=== PATIENT | female | born 1990 | race Caucasian/White ===

== ENCOUNTER → 2020-04-01 15:02 | Outpatient (BNVA) | payer MEDICAID, SELFPAY | PROVIDERS: Visit Provider Advanced Practice Midwife | DX: Z76.89 Persons encountering health services in other specified circumstances (principal) ==

== ENCOUNTER 2020-05-12 09:47 | Outpatient (REF) | payer MEDICAID, SELFPAY ==
[2020-05-13 10:15] LABS: BV Int Neg Control Negative (Negative); BV Int Pos Control Positive (Positive)
[2020-05-15 08:47] LABS: C. trachomatis RNA TMA NOT DETECTED (NOT DETECTED); N. gonorrhoeae RNA TMA NOT DETECTED (NOT DETECTED)
[2020-05-15 10:18] LABS: HPV mRNA E6/E7 rflx Not Detected (Not Detected)
== END 2020-05-12 09:48 | disposition home or self-care (01) ==
LOC: HO.LAB 09:47
PROVIDERS: PCP Emergency Medicine; Visit Provider Advanced Practice Midwife
DX: Z12.4 Encounter for screening for malignant neoplasm of cervix (principal); N88.9 Noninflammatory disorder of cervix uteri, unspecified; N93.9 Abnormal uterine and vaginal bleeding, unspecified; R10.2 Pelvic and perineal pain
CPT/HCPCS: 87480; 87491; 87510; 87591; 87624; 87660; 88142

== ENCOUNTER 2020-05-12 11:08 | Outpatient (REF) | payer MEDICAID, SELFPAY ==
--- NOTE | 2020-05-12 11:12 | US_ITS ---
EXAMINATION: ULTRASOUND PELVIC, TRANSVAGINAL COMPLETE CLINICAL INFORMATION: Pelvic and perineal pain. COMPARISON: None TECHNIQUE: Multiple 2-D grayscale and color Doppler transabdominal and transvaginal ultrasound images of the pelvis were obtained. FINDINGS: Uterus: Anteverted/anteflexed measuring 7.2 x 3.7 x 4.3 cm. The endometrial stripe measures up to 0.4 cm at the level the fundus without focal abnormality. Color Doppler showed no abnormal vascular flow. The cervix is closed without abnormality. Cervical length is approximately 2 cm. Minimal free fluid is seen in the cul-de-sac. Right ovary: 3.4 x 1.3 x 2.3 cm with a volume of 5.3 cm. Tiny anechoic follicles are seen. Color Doppler showed no abnormal vascular flow. Left ovary: 3.3 x 2.3 x 3.2 cm with a volume of 12.7 cm. Several anechoic follicles are seen measuring up to 1.3 cm. Color Doppler showed no abnormal vascular flow. Urinary bladder: Mildly distended without focal abnormality. US/US pelvic complete IMPRESSION: Unremarkable pelvic ultrasound.
== END 2020-05-12 11:09 | disposition home or self-care (01) ==
LOC: HO.US 11:08
PROVIDERS: Visit Provider Advanced Practice Midwife
DX: R10.2 Pelvic and perineal pain (principal)
CPT/HCPCS: 76830; 76856

== ENCOUNTER → 2020-05-19 10:30 | Outpatient (BNVA) | payer MEDICAID, SELFPAY | PROVIDERS: Visit Provider Advanced Practice Midwife | DX: Z76.89 Persons encountering health services in other specified circumstances (principal) ==

== ENCOUNTER → 2020-05-31 14:45 | Outpatient (BNVA) | payer MEDICAID, SELFPAY | PROVIDERS: PCP Family Medicine; Visit Provider Obstetrics & Gynecology | DX: N80.9 Endometriosis, unspecified (principal) | CPT/HCPCS: 99212 ==

== ENCOUNTER 2021-02-15 10:47 | Outpatient (REF) | payer MEDICAID, SELFPAY ==
[2021-02-16 14:40] LABS: CT PCR NOT DETECTED (Not Detect.); NG PCR NOT DETECTED (Not Detect.)
[2021-02-17 10:35] LABS: BV Int Neg Control Negative (Negative); BV Int Pos Control Positive (Positive)
== END 2021-02-15 10:48 | disposition home or self-care (01) ==
LOC: HO.LAB 10:47
PROVIDERS: PCP Family Medicine; Visit Provider Advanced Practice Midwife
DX: R10.2 Pelvic and perineal pain (principal); N93.9 Abnormal uterine and vaginal bleeding, unspecified; N88.9 Noninflammatory disorder of cervix uteri, unspecified; N94.6 Dysmenorrhea, unspecified; K59.09 Other constipation; Z11.8 Encounter for screening for other infectious and parasitic diseases; Z11.3 Encounter for screening for infections with a predominantly sexual mode of transmission; Z88.1 Allergy status to other antibiotic agents; Z88.0 Allergy status to penicillin; Z79.899 Other long term (current) drug therapy
CPT/HCPCS: 81025; 87480; 87491; 87510; 87591; 87660; 99212

== ENCOUNTER → 2021-06-03 10:56 | Outpatient (BNVA) | payer MEDICAID, SELFPAY | PROVIDERS: PCP Family Medicine; Visit Provider Advanced Practice Midwife | DX: N92.6 Irregular menstruation, unspecified (principal) | CPT/HCPCS: 99212 ==

== ENCOUNTER 2021-06-10 12:11 | Outpatient (REF) | payer MEDICAID, SELFPAY ==
--- NOTE | ~2021-06-10 | US_ITS ---
EXAMINATION: OBSTETRICAL ULTRASOUND, FIRST TRIMESTER HISTORY: 30-year-old at the uncertain dates Viability LMP: 03/30/2021 COMPARISON: None TECHNIQUE: Real time transabdominal imaging with color and M-mode Doppler. FINDINGS: A single, live IUP CRL of 33.1 mm c/w 10.2wks is noted. Heart Rate: 163 beats per minute. Small subcutaneous chorionic hematoma: 2.3 x 0.4 x 1.6 cm. Both maternal ovaries are seen and appear normal. GESTATIONAL AGE: 1. GA from LMP: 10.2 wks 2. GA from AUA: 10.2 wks ESTIMATED DATE OF DELIVERY: 1. AVE from LMP: 01/04/[address] AUA: 01/04/2022 US/US OB <= 14 weeks fetus IMPRESSION: 1. A single live IUP 2. CRL corresponds to 10.2 weeks, AVE 01/04/2022 No additional ultrasound has been scheduled.
== END 2021-06-10 12:12 | disposition home or self-care (01) ==
LOC: HO.US 12:11
PROVIDERS: Visit Provider Advanced Practice Midwife
DX: O26.891 Other specified pregnancy related conditions, first trimester (principal); N92.6 Irregular menstruation, unspecified; Z3A.10 10 weeks gestation of pregnancy
CPT/HCPCS: 76801

== ENCOUNTER 2024-08-01 11:47 | Outpatient (REF) | payer MEDICAID, SELFPAY ==
[2024-08-01 13:39] LABS: Hematocrit 36.3 % (37.0-47.0); Hemoglobin 12.1 g/dl (12.0-16.0); Mean Corpuscular HGB Conc 33.3 g/dl (31.0-35.0); Mean Corpuscular Volume 89.9 fL (80.0-98.0); Mean Platelet Volume 11.2 fL (9.4-12.3); Platelet Count 222 X10*3/uL (160-400); Red Blood Count 4.04 X10*6/uL (4.20-5.50); Red Cell Distribution Width 12.9 % (11.0-16.0); White Blood Count 4.8 X10*3/uL (4.8-10.8)
[2024-08-01 13:48] LABS: Estimated Average Glucose 97 mg/dL; Total Hemoglobin (HGBA1C) 3201.9695 umol/L
[2024-08-01 13:55] LABS: Alanine Aminotransferase 30 U/L (0-31); Albumin Level 4.2 g/dL (3.5-5.0); Alkaline Phosphatase 76 U/L (39-117); Anion Gap 10 (12-20); Aspartate Amino Transferase 23 U/L (5-31); Bilirubin Direct 0.2 mg/dL (0.0-0.5); Bilirubin Total 0.5 mg/dL (0.0-1.0); Blood Urea Nitrogen 13 mg/dL (9-16); Calcium 9.3 mg/dL (8.4-10.2); Carbon Dioxide 29 mmol/L (22-29); Chloride 104 mmol/L (96-108); Cholesterol 99 mg/dL (<200); Estimated Glomerular Filt Rate > 60; Glucose Random 80 mg/dL (60-115); HDL Cholesterol 50 mg/dL (>40); LDL Cholesterol Calculated 41 mg/dL (<100); Sodium 139 mmol/L (135-145); Total Protein 7.1 g/dL (6.5-8.0); Triglycerides 43 mg/dL (<150)
[2024-08-01 14:11] LABS: HBS Num1 799.61 mIU/mL (0-7.99); HBc Num1 0.09 S/CO (0.00-0.79); HBsAGNum1 0.33 S/CO (0.00-0.99); HIV AB/AG Nonreactive (Nonreactive); HIV Num 1 0.07 S/CO (0.00-0.99); Hepatitis B Core Antibody Nonreactive (Nonreactive); Hepatitis B Surface Antigen Negative (Negative); ~HepC Num1 0.11 S/CO (0.00-0.79); ~Hepatitis B Surface Antibody REACTIVE (Nonreactive); ~Hepatitis C Antibody Nonreactive (Nonreactive)
[2024-08-01 14:19] LABS: Free T4 (Free Thyroxine) 1.05 ng/dL (0.71-1.85); Thyroid Stimulating Hormone 2.04 uIU/mL (0.32-4.0)
[2024-08-01 15:15] LABS: CT PCR NOT DETECTED (Not Detect.); NG PCR NOT DETECTED (Not Detect.)
[2024-08-04 16:58] LABS: RPR Rapid Plasma Reagin NON-REACTIVE (NON-REACTIVE)
[2024-08-06 04:11] LABS: Hepatitis A Antibody IgG Nonreactive (Nonreactive); ~Hepatitis A Antibody IgG 0.28 S/CO (0.00-0.99)
== END 2024-08-01 11:48 | disposition home or self-care (01) ==
LOC: HO.HHCL 11:47
PROVIDERS: Visit Provider Family Medicine
DX: Z00.00 Encounter for general adult medical examination without abnormal findings (principal); F33.9 Major depressive disorder, recurrent, unspecified; N93.9 Abnormal uterine and vaginal bleeding, unspecified; Z68.20 Body mass index [BMI] 20.0-20.9, adult
CPT/HCPCS: 80048; 80061; 80076; 82306; 83036; 84134; 84439; 84443; 85027; 86592; 86704; 86706; 86708; 86803; 87340; 87389; 87491; 87591

== ENCOUNTER 2024-11-13 12:40 | Outpatient (REF) | payer MEDICAID, SELFPAY ==
--- NOTE | ~2024-11-13 | US_ITS ---
CLINICAL HISTORY: prolonged heavy menses US pelvis transabdominal and transvaginal with color Doppler Comparison: None Findings: Transabdominal scanning performed for overall anatomy. Transvaginal scanning performed for additional detail. LMP: 1 month ago Retroflexed/retroverted uterus, normal size and echotexture, measuring 7.4 x 4.8 x 6.2 cm. Well defined endometrium, measuring 6.3 mm in thickness. The right ovary measures, 4.8 x 2.7 x 3.0 cm. Anechoic cyst measuring 3.1 x 1.9 x 2.6 cm. The left ovary measures, 4.5 x 2.0 x 1.9 cm. Normal sonographic appearance left ovary. No adnexal masses or fluid collections. Mild prominence of the vessels in the left adnexa. Moderate free fluid Impression: 1. Retroflexed/retroverted uterus with normal thickness endometrium. 2. Suspect functional cyst right ovary. Normal sonographic appearance left ovary. No adnexal masses or fluid collections. 3. Moderate free fluid in the cul-de-sac 4. Equivocal pelvic venous congestion syndrome clinical correlation This document has been electronically signed by: Alan Chi MD on 11/14/2024 13:00:59
--- OUTSIDE RECORDS SUMMARY | 2024-11-13 12:51 | XMS_ITS | Clinical Summary ---
Author Organization [employer] Address [address] [place] [address] [address] [place] [address] Care Team Providers Care Retreader Name Role Phone Nakul Kathrine Primary Care Provider Fadumo Belle Unavailable Allergies Active Allergy Reactions Criticality Noted Date Comments Azithromycin High 08/21/2016 Other reaction(s): hives, swelling Etonogestrel Rash Low 03/27/2019 Other reaction(s): Rash Penicillin G Hives 05/19/2022 Penicillins Unknown 03/22/2016 Other reaction(s): full body rash/hives Medications * This document contains information received from the source organization and may not represent a complete record from that organization. EPINEPHrine (EpiPen 2-Bora) 0.3 MG/0.3ML injection syringe Inject 0.3 mL into the shoulder, thigh, or buttocks. 02/01/2021 Active FLUoxetine (PROzac) 40 MG capsule Take 40 mg by mouth Once per day. Active hydrOXYzine pamoate (Vistaril) 25 MG capsule TAKE ONE CAPSULE BY MOUTH THREE TIMES A DAY, NEEDED FOR ANXIETY/SLEE P 03/03/2024 Active cetirizine (ZyrTEC) 10 MG tabletIndication s:Seasonal allergic rhinitis, unspecified trigger Take 1 tablet by mouth every day 90 tablet 1 08/01/2024 Active Nutritional Supplements (Boost High Protein) liquid Take 1 Bottle by mouth 2 times daily. 60691 mL 11 10/16/2024 10/17/19 26 Active Active Problems Problem Noted Date Diagnosed Date Allergy to penicillin 06/06/2023 06/06/2023 History of hemorrhage 06/06/2023 06/06/2023 History of delivery 05/19/2022 Severe anxiety 05/19/2022 Chronic female pelvic pain 05/19/2022 BMI 20.0-20.9, adult 05/19/2022 Abnormal uterine bleeding 05/18/2022 Allergic rhinitis 05/18/2022 Eczema 09/15/2015 Moderate episode of recurrent major depressive d isorder 09/15/2015 Resolved Problems Problem Noted Date Diagnosed Date Resolved Date Razo cerclage present 06/06/2023 06/06/2023 Request for sterilization 06/06/2023 06/06/2023 Rh negative, maternal 06/06/2023 06/06/20232024 Anxiety and depression 05/19/202208/01 Overview (06/06/2023): [facility] Encounters * This document contains information received from the source organization and may not represent a complete record from that organization. Date Type Department Care Team Description 11/12/2024 Patient Outreach [address] [address] Kathrine Mota DO Care Coordination ([facility]/ANDREW Waters#1- Missed appt with [facility] for housing search-LVM) 11/10/2024 Patient Outreach [address] [address] Kathrine Mota DO Care Coordination ([facility]/ANDRE[facility] Waters- Follow up call) 11/10/[address] [address] Kathrine Mota DO Care Management ([facility] Graduation) 11/06/2024 Patient Outreach [address] [address] Kathrine Mota DO Care Coordination ([facility]/CEE Belle, In person meet) 11/06/2024 Patient Outreach [address] [address] Kathrine Mota DO 10/27/2024 Patient Outreach [address] [place] [address] Kathrine Mota, DO 10/27/2024 Patient Outreach [facility] [address] [facility] [place] [address] Kathrine Mota, DO 10/27/2024 Patient Outreach [facility] [address] [facility] [place] [address] Kathrine Mota, DO 10/16/2024 Telephone [facility] [address] [place] [address], [place] [address] Kathrine Mota, DO 10/16/2024 Telephone [facility] [address] [facility] [place] [address] Kathrine Mota, DO 10/14/[address] [place] [address] Kathrine Mota DO Care Management ([facility] follow up call) 09/22/2024 Orders Only [address] [place] [address] Kathrine Mota DO Weight loss, unintentional (Primary Dx) 09/16/[address] [address] Kathrine Mota DO [facility] 09/09/2024 Orders Only [address] [place] [address] Marni Stout, CNM 09/08/[address] [place] [address] Marni Stout, INDUM 08/25/[address] [address] Kathrine Mota DO Care Management ([facility] follow up call) 08/18/2024 Patient Outreach [address] [place] [address] Kathrine Mota DO Transition Of Care ([facility]) 08/14/2024 Patient Outreach [address] [place] [address] Kathrine Mota DO Care Coordination ([facility] Rossi Herzog telephone call outreach) from Last 3 Months Immunizations Immunization Administration Dates Next Due DTP 11/11/1993, 1,07/24/1990,1988,1988 DTaP / HiB / IPV 03/20/2013 HPV, Quadrivalent 05/31/2006 Hep B, Adolescent or Pediatric 08/12/2002,1998,01/13/1998 Hib (HbOC) 07/24/1990 Influenza, IIV3, injectable 02/12/2023,0 05/20/2021,02/19/2017,2015,03/06/2013,03/07/2011,02/11/2009 Influenza, Split (incl. chin fied surface antigen) 02/01/2012 Influenza, seasonal, injecta ble, preservative free 02/12/2023,05/20/2021,03/06/2013,2010 MMR 08/05/2002,01/02/1991 OPV, Trivalent 11/11/1993, 1,07/24/1990,1988,1988 TD (adult), 2 Lf tetanus tox oid, preservative free, adsorbed 03/07/2006,08/05/2002 Tdap 06/19/2023, 2,02/01/2021,2016,05/02/2013,07/17/2011,07/19/2009 Family History Medical History Relation Name Comments Depression Mother Relation Name Status Comments Mother Social History Tobacco Use Types Packs/Day Years Used Date Smoking Tobacco: Never Smokeless Tobacco: Never Tobacco Cessation:Counseling Given: Not Answered Alcohol Use Standard Drinks/Week Comments Never 0 (1 standard drink = 0.6 oz pur e alcohol) Depression Answer Date Recorded Patient Health Questionnaire-9 Score 13 08/14/2024 Patient Health Questionnaire-9 Score 13 08/14/2024 Last PHQ-9: Questionnaire Data Not on file 0 08/14/2024 Housing Stability Answer Date Recorded What is your housing situation today? I do not have housing (Staying with others, in a hotel, in a skilled nursing, living outside on the street, on a beach, in a car, or in a park 11/06/[address] you li ve. Do you have problems with any of the following? None of the above 11/06/2024 Food Insecurity Answer Date Recorded Within the past 12 months, y ou worried that your food would run out before you got money to buy more: Never True 08/01/2024 Within the past 12 months,th e food you bought just didn't last and you didn't have enough money to get more: Never True Transportation Answer Date Recorded In the past 12 months, has l ack of transportation kept you from medical appts, meetings, work or from getting things needed for daily living? No 06/21/2023 Utilities Answer Date Recorded In the past 12 months, has t he electric, gas, oil or water company threatened to shut off services in your home? No 06/21/2023 Depression Answer Date Recorded Patient Health Questionnaire-2 Score 3 08/14/2024 Internet Access Answer Date Recorded Internet Access Q1 Yes 06/09/2024 Internet Access Q2 Not on file 06/09/2024 Comments No Sex and Gender Information Value Date Recorded Sex Assigned at Female 03/13/2022 10:19 AM EDT Legal Sex Female 10:19 AM EDT Gender Identity Female 03/13/2022 10:19 AM EDT Sexual Orientation Straight 07/27/2023 9: 39 AM EDT Sexual Orientation Lesbian or Lacey 07/27/2023 9: 39 AM EDT Last Filed Vital Signs Vital Sign Reading Time Taken Comments Blood Pressure 110/70 08/01/2024 10:31 AM EDT Pulse 76 08/01/2024 10:31 AM EDT Temperature 36.2 C (97.2 F) 08/01/2024 10:31 AM EDT Respiratory Rate 21 08/01/2024 10:31 AM EDT Oxygen Saturation 98% 08/01/2024 10:31 AM EDT Inhaled Oxygen Concentration - - Weight 55.5 kg (122 lb 6 oz) 08/01/2024 10:31 AM EDT Height 165.1 cm (5' 5 ) 08/01/2024 10:31 AM EDT Body Mass Index 20.36 08/01/2024 10:31 AM EDT Plan of Treatment Health Maintenance Due Date Last Done Comments Disability Screening 1988 Family Planning (PISQ) 10/05/2003 HPV Vaccines (2 - 3-dose series) 06/28/2006 05/31/2006 COVID-19 Vaccine ( season) 2024 02/22/2021, 02/01/2021 Influenza Vaccine (#1) 2025 , 02/12/2023, 05/20/2021, Additional history exists Depression Monitoring 02/13/2025 08/14/2024, 025 Cervical Cancer Screening 04/12/2025 HPV/Cotest 04/12/2025 04/12/2022, 04/15, 03/27/2019 Alcohol/Substance Use Screening 08/01/2025 08/01/2024 Tobacco Screening 08/01/2025 08/01/2024 SDOH Screening 11/06/2025 11/06/2024 Pap Smear 12/20/2026 12/21/2023, 03/16, 05/12/2020 DTaP/Tdap/Td Vaccines (14 - Td or Tdap) 06/19/2033 06/19/2023, 10/21/2021, 02/01/2021, Additional history exists Zoster Vaccines (1 of 2) 2038 RSV Patients and Patients Aged 60 years or older (1 - 1-dose 75+ series) 10/05/2063 Hepatitis B Vaccines Completed 08/12/2002, 04/28/1999, 01/13/1998 HIB Vaccines Completed 03/20/2013, 07/24/1990 IPV Vaccines Completed 03/20/2013, 07/05/1993, 01/02/1991, Additional history exists HIV Screening Completed 08/01/2024, 02/01/2021 Hepatitis C Screening Completed 08/01/2024, 021 Hepatitis A Vaccines Aged Out No long er eligible based on patient's age to complete this topic Meningococcal B Vaccine Aged Out No l onger eligible based on patient's age to complete this topic Meningococcal Vaccine Aged Out No elana ling eligible based on patient's age to complete this topic Pneumococcal Vaccine: Pediatrics (0 to 5 Years) and At-Risk Patients (6 to 49) Years Aged Out No longer eligible based on patient's age to complete this topic RSV under 20 months Aged Out No longe r eligible based on patient's age to complete this topic Rotavirus Vaccines Aged Out No longer eligible based on patient's age to complete this topic Procedures Procedure Name Priority Date/Time Associated Diagnosis Comments HEPATITIS C AB W/REFL TO HCV RNA, QN, PCR Routine 08/01/2024 11:53 AM EDT Routine history and physical examination of adult Major depression, recurrent, chronic (CMS/HCC) Abnormal uterine bleeding BMI 20.0-20.9, adult HIV 1/2 ANTIGEN/ANTIBODY, FOURTH GENERATION W/RFL Routine 08/01/2024 11:53 AM EDT Routine history and physical examination of adult Major depression, recurrent, chronic (CMS/HCC) Abnormal uterine bleeding BMI 20.0-20.9, adult PAP SMEAR Routine 12/21/2023 12:00 AM EDT THINPREP IMAGING PAP AND HPV MRNA E6/E7 WITH REFLEX TO HPV 16,18/45 Routine 04/12/2022 9:20 AM EST from Last 3 Months or Most Recently Relevant to Health Maintenance Results * Hepatitis C Antibody with Reflex to HCV, RNA, Quantitative, Real-Time PCR (08/01/2024 11:53 AM EDT) Hepatitis C Antibody Nonreactive Nonreactive [facility] Comment:Antibodies to HCV no t detected; does not exclude early acuteHCV infection. Blood Venous blood specimen / Unknown 08/01/2024 11:53 AM EDT 08/01/2024 1:22 PM EDT us Kathrine Mota DO LAB BLOOD ORDERABLES Final R esult [facility] [address] [place] [phone] * HIV-1/2 Antigen and Antibodies, Fourth Generation, with Reflexes (08/01/2024 11:53 AM EDT) HIV AB/AG Nonreactive Nonreactive [facility] Comment:HIV-1 p24 Ag and/or HIV-1/HIV-2 Ab not detected.A test result that is nonreactive does not exclude thepossibility of exposure to or infection with HIV-1 and/orHIV-2. Nonreactive results in this assay for individualswith prior exposure to HIV-1 and/or HIV-2 may be due toantigen and antibody levels that are below the limit ofdetection of this assay.The Revinate HIV Ag/Ab Combo assay result andsupplemental assay results should be interpreted inconjunction with the patient's clinical presentation,history and other laboratory results. If the results areinconsistent with clinical evidence, additional testing issuggested to confirm the result. Blood Venous blood specimen / Unknown 08/01/2024 11:53 AM EDT 08/01/2024 1:22 PM EDT Kathrine Mota DO LAB BLOOD ORDERABLES Final R esult [facility] [address] [place] [phone] * Pap Smear (12/21/2023 12:00 AM EDT) Swab Historical Provider MD LAB CYTOLOGY ORDERABLES F inal Result Performing Organization Address City/[facility]/ZIP Co de Phone Number [facility] [address] [place] [phone] * Thinprep TIS PAP And HPV mRNA E6/E7 With Reflex To HPV 16,18/45 (04/12/2022 9:20 AM EST) Clinical Information: None given [facility] LMP: NONE GIVEN [facility] Prev. PAP: NONE GIVEN [facility] Prev. BX: NONE GIVEN [facility] SOURCE: None given [facility] Statement Of Adequacy: [facility] Comment: Satisfactory for evaluation. Endocervical/transformation zone component present. Age and/or menstrual status not provided Interpretation/ Result: Negative for intraepithelial lesion or malignancy. trinket COMMENT: This Pap test has been evaluated with computer assisted technology. [facility] Cytotechnologis t: [facility] Comment: SL, CT(ASCP) CT screening location: [place] [id number] Review Cytotechnologis t: [facility] Comment: WAC, CT(ASCP) CT screening location: [place] [address] (Always Message) [facility] Comment: EXPLANATORY NOTE: The Pap is a screening test for cervical cancer. It is not a diagnostic test and is subject to false negative and false positive results. It is most reliable when a satisfactory sample, regularly obtained, is submitted with relevant clinical findings and history, and when the Pap result is evaluated along with historic and current clinical information. HPV nRNA E6/E7 Not Detected Not Detected trinket Comment: Methodology: Environmental Systems Coordinator-Mediated Amplification This assay detects E6/E7 viral messenger RNA (mRNA) from 14 high-risk HPV types (16,18,31,33,35,39,45,51,52,56,58,59,66,68). Cervical sources are required for HPV testing. If a vaginal source from a patient who has had a total hysterectomy with removal of cervix was submitted, please contact the testing laboratory for alternative testing options. For additional information, please refer to http://education.Precipio.rankdesk/faq/MNY337d4 (This link if provided for information/ educational purposes only.) 04/12/2022 9:20 AM EST 04/13/2022 8:41 AM EST Marni Stout CNM LAB PATHOLOGY ORDERABLES Final Result [facility] [address], [place] [address] [facility] [address], [place] [address] from Last 3 Months or Most Recently Relevant to Health Maintenance Insurance [facility] C3 Care Teams Retreader Relationship Specialty Start Date End Date Kathrine Mota DO [address] [place] [phone] PCP - General Family Medicine 05/14/18 Fadumo Belle 11/06/24
--- OUTSIDE RECORDS SUMMARY | 2024-11-13 12:51 | XMS_ITS | Clinical Summary ---
Author Organization [facility] Address [address] [place] [address] Phone Care Team Providers Care Research Epidemiologist Name Role Phone CastroKathrine go Primary Care Provider +1- [phone] Allergies Active Allergy Reactions Criticality Noted Date Comments Azithromycin High 08/21/2016 Other reaction(s): hives, swelling Etonogestrel Rash Low 03/27/2019 Other reaction(s): Rash Penicillins Hives 06/12/2024 Medications No known medications Encounters Date Type Department Care Team Description 08/16/2024 10:37 PM EDT - 08/17/2024 1:22 AM EDT Emergency [facility] [address] [place] [address] Altered mental status, unspecified altered mental status type (Primary Dx) Discharge Disposition: Home or Self Care from Last 3 Months Surgical History Surgery Date Site/Laterality Comments OTHER SURGICAL HISTORY 11/15 PROCEDURE: [place] DILATION & CURETTAGE DX&/THER NONOBSTETRIC; COMMENT: elective TOP TONSILLECTOMY 07/18 PROCEDURE: HISTORICAL TONSILLECTOMY OVARIAN CYST REMOVAL PROCEDURE: VT OVARIAN CYSTECTOMY UNI/BI Medical History Medical History Date Comments Otalgia, unspecified 07/29/04,09/27/04 DX:Otalgia, unspecified Impacted cerumen 09/28/03 DX:Impacted cer umen Hordeolum externum 07/31/02,12/03/02 DX:Hordeolum externum Swelling, mass, or lump in h ead and neck 03/10/03 DX:Swelling, mass, or lump i n head and neck Contact dermatitis and other eczema, due to unspecified cause 02/11/02,03/25/02 DX:Contact dermatitis and other eczema, due to unspecified cause Varicella without mention of complication 1993 DX:Varicella without mention of complication Laceration 03/02/06 DX:Laceration; C OMMENT: laceration left hand Family History Medical History Relation Name Comments Colon cancer Maternal Grandmother Diabetes Maternal Grandmother Allergies Sister 1 Breast cancer Neg Hx Ovarian cancer Neg Hx Relation Name Status Comments Brother Alive 01/28/1990 kvng solorzano Father Alive 05/21/1968 no in picture Maternal Grandmother Mother Alive 04/28/1970 Sister 1 Sister 2 Alive 06/08/1986 Sell dana Social History Tobacco Use Types Packs/Day Years Used Date Smoking Tobacco: Never Smokeless Tobacco: Never Alcohol Use Standard Drinks/Week Comments No 0 (1 standard drink = 0.6 oz pur e alcohol) Comments Unknown Sex and Gender Information Value Date Recorded Sex Assigned at Female 06/12/2024 6:03 PM EST Legal Sex Female 12:28 PM EST Gender Identity Female 06/12/2024 6:03 PM EST Sexual Orientation Choose not to disclose 2024 6:03 PM EST Obstetrics History Last Filed Vital Signs Vital Sign Reading Time Taken Comments Blood Pressure 101/53 08/16/2024 11:50 PM EDT Pulse 76 08/16/2024 11:50 PM EDT Temperature 36.7 C (98.1 F) 08/16/2024 11:50 PM EDT Respiratory Rate 14 08/16/2024 11:50 PM EDT Oxygen Saturation 98% 08/16/2024 11:50 PM EDT Inhaled Oxygen Concentration - - Weight 55.8 kg (123 lb) 08/16/2024 10:44 PM EDT Height 165.1 cm (5' 5 ) 08/16/2024 10:44 PM EDT Body Mass Index 20.47 08/16/2024 10:44 PM EDT Plan of Treatment Health Maintenance Due Date Last Done Comments HPV Vaccines (2 - 3-dose series) 06/28/2006 05/31/2006 Cervical Cancer Screening: Pap Smear 2009 COVID-19 Vaccine ( season) 2024 02/22/2021, 02/01/2021 Social Influencers of Health Screening 03/07/2024 Influenza Vaccine (Season Ended) 2025 02/12/2023, 05/20/2021, 02/19/2017, Additional history exists Depression Screening 08/14/2025 08/14/2024 Cholesterol Screening (Lipid Panel) 08/01/2029 08/01/2024 DTaP,Tdap,and Td Vaccines (16 - Td or Tdap) 06/19/2033 06/19/2023, 10/21/2021, 02/01/2021, Additional history exists MMR Vaccines Completed 08/05/2002, 01/02/1991 Hepatitis B Vaccines Completed 08/12/2002, 04/28/1999, 01/13/1998 HIB Vaccines Completed 03/20/2013, 07/12, 07/24/1990 IPV Vaccines Completed 03/20/2013, 05/1993, 01/02/1991, Additional history exists HIV Screening Completed 08/01/2024, 02/01/2021 Hepatitis C Screening Completed 08/01/2024 Hepatitis A Vaccines Aged Out No long er eligible based on patient's age to complete this topic Meningococcal ACWY Vaccine Aged Out N o longer eligible based on patient's age to complete this topic Meningococcal B Vaccine Aged Out No l onger eligible based on patient's age to complete this topic Pneumococcal Vaccine: Pediatrics (0 to 5 Years) and At-Risk Patients (6 to 64 Years) Aged Out No longer eligible based on patient's age to complete this topic RSV Immunization Patients Under 20 months Aged Out No longer eligible based on patient's age to complete this topic Varicella Vaccines Aged Out No longer eligible based on patient's age to complete this topic Procedures Procedure Name Priority Date/Time Associated Diagnosis Comments ECG ANNOTATED 08/18/2024 DRUG ABUSE SCREEN 8A PANEL, URINE STAT 08/17/2024 12:54 AM EDT ECG 12-LEAD STAT 08/16/2024 10:35 PM EDT from Last 3 Months Results * ECG-Annotated (08/18/2024) us Provider Onbase MD ECG ORDERABLES Final Result * (ABNORMAL) Drug abuse screen 8a panel, urine (08/17/2024 12:54 AM EDT) Amphetamine Screen, Ur Negative Negative LAB CHEMISTRY METHOD 1:58 AM [facility] Comment:Certain OTC medicati ons containing ephedrine, phenylephrine, pseudoephedrine and phenylpropanolamine can cause false positive results. Barbiturate Screen, Ur Negative Negative LAB CHEMISTRY METHOD 5 1:58 AM [facility] Benzodiazepine Screen, Ur Negative Negative LAB CHEMISTRY METHOD 5 1:58 AM [facility] Cocaine Screen, Ur Negative Negative LAB CHEMISTRY METHOD 5 1:58 AM [facility] Opiate Screen, Ur Negative Negative LAB CHEMISTRY METHOD 1:58 AM [facility] Cannabinoid (THC) Screen, Ur Positive(A ) Negative LAB CHEMISTRY METHOD 1:58 AM [facility] Comment:Specimens from patie nts taking pantoprazole sodium (Protonix) have been shown to produce false positive results. Oxycodone Screen, Ur Negative Negative LAB CHEMISTRY METHOD 5 1:58 AM [facility] Fentanyl, Ur Negative Negative LAB CHEMISTRY METHOD 1:58 AM [facility] Urine Urine specimen obtained by clean catch procedure / Unknown Non-blood Collection / Unknown 08/17/2024 12:54 AM EDT 08/17/2024 1:29 AM EDT Narrative [facility] - 08/17/2024 1:58 AM EDT Assay cutoffs: Amphetamines 1000 ng/mL Barbiturates 200 ng/mL Benzodiazepines 200 ng/mL Cocaine 300 ng/mL Fentanyl 1 ng/mL Opiates 300 ng/mL Oxycodone 100 ng/mL THC 50 ng/mL Semi-quantitative assay for screening purposes only. Unconfirmed screening result should not be used for non-medical purposes. *ALTERNATE METHOD CONFIRMATION DONE UPON REQUEST ONLY* Lucy MONTELONGO LAB URINE ORDERABLES F inal Result [facility] [address] [place] [address], * ECG 12 lead (08/16/2024 10:35 PM EDT) Ventricular Rate ECG 102 BPM GEMUSE Atrial Rate 102 BPM GEMUSE P-R Interval 128 ms GEMUSE QRS Duration 108 ms GEMUSE Q-T Interval 380 ms GEMUSE QTc 495 ms GEMUSE P Wave [place] 58 degrees GEMUSE R [place] 78 degrees GEMUSE T [place] 24 degrees GEMUSE ECG Interpretation Sinus tachycardia Nonspecific ST and T wave abnormality Abnormal ECG No previous ECGs available Confirmed by NOEMÍ JOY ([id number]) on 08/17/2024 10:13:29 AM GEMUSE 08/16/2024 10:3 5 PM EDT 08/17/2024 10:13 AM EDT Miguel Barth MD ECG ORDERABLES Final Result GEMUSE from Last 3 Months Insurance [place] - [place] Care Teams Research Epidemiologist Relationship Specialty Start Date End Date Kahtrine Mota DO [address], [place] PCP - General Internal Medicine 10/29/12
== END 2024-11-13 12:41 | disposition home or self-care (01) ==
LOC: HO.HMGCX 12:40
PROVIDERS: PCP Family Medicine; Visit Provider Family Medicine
DX: N93.9 Abnormal uterine and vaginal bleeding, unspecified (principal)
CPT/HCPCS: 76830; 76856

== ENCOUNTER → 2024-11-13 12:42 | Outpatient (BNV) | payer MEDICAID, SELFPAY | PROVIDERS: PCP Family Medicine; Visit Provider Radiology Diagnostic Radiology | DX: N83.291 Other ovarian cyst, right side (principal) | CPT/HCPCS: 76830; 76856 ==

== ENCOUNTER 2024-12-25 13:46 | Emergency (ER) | payer MEDICAID, SELFPAY ==
--- NOTE | ~2024-12-25 | CT_ITS ---
CLINICAL HISTORY: Lower abdominal left CVA tenderness. CT abdomen and pelvis without contrast Comparison: None provided Findings: The lung bases are clear. Cholecystectomy. No biliary duct dilatation. Liver, pancreas, spleen, and adrenal glands are within normal limits. No hydronephrosis or urolithiasis. No bowel obstruction, pneumoperitoneum, or pneumatosis. Postsurgical changes in the right lower quadrant. Pelvic organs are within normal limits. Small amount of free fluid in the pelvis, favored to be physiologic. No acute fracture. IMPRESSION: 1. No acute intraabdominal or pelvic pathology. This document has been electronically signed by: Delilah Moore MD on 12/25/2024 22:04:26
[2024-12-25 14:40] VITALS: BP 103/50; PULSE 75; RESP 16; TEMP 36.8; O2SAT 99; BMI 20.3
--- NOTE | 2024-12-25 14:41 | ED.ABDPAIN ---
HPI - Abdominal Pain General Chief Complaint: Back Pain/Injury Stated Complaint: Back pain, blood in urine, sent by Dr Time Seen by Provider: 12/25/24 19:40 Source: patient Mode of arrival: ambulatory Limitations: no limitations History of Present Illness ED Provider: DR. Gasca HPI narrative: A 34-year-old female came in for evaluation of bilateral flank pain for over a week, also complaining of lower abdominal pain left more than right, patient's symptoms started a week ago was seen and evaluated at urgent care was diagnosed with UTI patient was placed on antibiotic by the urgent care that the patient just had finished. Patient had loose stool today described as dark green with no blood in her, no nausea, no vomiting, no fever, no chills, no history of kidney stones, passing flatus. Patient with history of appendectomy, cholecystectomy, bilateral fallopian tube removal, ovarian cyst removal. Patient is sexually active with 1 person declined risk for STDs, no vaginal discharge, no vaginal bleed patient was seen by her OBGYN 2 days ago tested negative for STDs. Related Data Home Medications ?Medication ?Instructions ?Recorded ?Confirmed cetirizine 10 mg capsule (Zyrtec) 10 mg PO DAILY 04/01/20 02/15/21 desogestrel 0.15 mg-ethinyl tab PO 12/25/24 estradiol 0.03 mg tablet (Apri) fluoxetine 40 mg capsule 40 mg PO DAILY 12/25/24 hydroxyzine HCl 10 mg tablet 10 mg PO TID PRN insomnia 12/25/24 lamotrigine 25 mg tablet mg PO 12/25/24 mirtazapine 15 mg tablet 15 mg PO BEDTIME 12/25/24 Previous Rx's ?Medication ?Instructions ?Recorded levofloxacin 750 mg tablet 750 mg PO DAILY #7 tabs 12/26/24 Allergies Allergy/AdvReac Type Severity Reaction Status Date / Time azithromycin Allergy Unknown anaphylaxis Verified 12/25/24 14:44 penicillin V Allergy Unknown hives, Verified 12/25/24 14:44 rash, angioedema Penicillins (PCN) Allergy Unknown ANAPHYLAXIS Verified 12/25/24 14:44 Review of Systems Review of Systems All other systems are reviewed and are negative Constitutional: Reports as per HPI and Reports no additional constitutional complaints Eyes: Reports as per HPI and Reports no additional eye complaints Reports system reviewed and no additional complaints, except as documented Cardiovascular: Reports as per HPI and Reports no additional cardiovascular complaints Respiratory: Reports as per HPI and Reports no additional respiratory complaints Gastrointestinal: Reports as per HPI and Reports no additional gastrointestinal complaints Genitourinary: Reports no additional female genitourinary complaints Musculoskeletal: Reports no additional musculoskeletal complaints Skin/Breast: Reports system reviewed and no additional complaints, except as docu Psychiatric: Reports no additional psychiatric complaints Endocrine: Reports no additional endocrine complaints Hematologic/Lymphatic: Reports no additional hematologic/lymphatic complaints Allergic/Immunologic: Reports no additional allergic/immunologic complaints Reports system reviewed and no additional complaints, except as documented and Reports Abnormal speech present [facility] Past Medical History Medical History Chronic constipation Hx of ovarian cyst Surgical History History of removal of ovarian cyst Hx of appendectomy Hx of tonsillectomy Family History Family History Maternal Grandmother Colon cancer Social History Social History Alcohol intake: never Advance Directives: No Advance Directives Information Provided: No Do you have a plan to hurt others: No Plan Gender identity: Female Physical Exam ED Vital Signs: Vital Signs - 24 hr 12/25/24 14:40 12/25/24 19:49 12/25/24 23:34 Temperature 98.2 F 97.7 F 98.3 F Pulse Rate 75 60 65 Respiratory Rate 16 Blood Pressure 103/50 L 107/71 107/63 Pulse Oximetry 99 100 100 Oxygen Delivery Method Room Air Room Air Room Air BMI result Body Mass Index 20.3 Vital signs have been reviewed and appear to be correct. Blood pressure elevated. Heart rate normal. Respiratory rate normal. Temperature normal. Oxygen saturation normal. Appearance: Alert. Oriented X3. No acute distress. Head: Normal external exam. Normocephalic. Atraumatic. No Loaiza signs noted. No raccoon eyes noted Eyes: PERRLA. EOMI. Conjunctiva and sclera normal. Eyelids normal. ENT: TM's Normal. Pharynx normal. Uvula midline. Moist mucous membranes. No trismus noted. No drooling noted. No muffled voice noted. Neck: Normal inspection. Neck supple. FROM. No adenopathy. Thyroid Normal. No meningeal signs. No neck mass noted. CVS: Normal heart rate and rhythm. Heart sound normal. No murmurs noted. Pulses normal throughout. Respiratory: No respiratory distress. Painless inspiration. Breath sounds normal. No wheezes/rales/rhonchi noted. Chest nontender. No accessory muscle usage noted or decreased air movement noted. Abdomen: Soft, left lower quadrant abdominal tenderness, no rebound tenderness, no guarding. Bowel sounds normal in all 4 quadrants. No distention noted. No organomegaly noted. No visible injury noted. Back: L CVA tenderness. Full range of motion noted. Skin: Skin warm and dry. Normal skin color. Normal skin turgor. No rashes/lesions/lacerations noted. Extremities: No lower extremity edema. Extremities exhibit normal range of motion. Extremities nontender. Neuro: Oriented X 3. Cranial nerve exam: II-XII are grossly intact No motor deficit. No sensory deficit. Reflexes normal. Course Course Course Narrative: This is an RME: Additional HPI, ROS, PE not included below will be deferred to primary provider. RME assessment and note performed by: Apolonia Jacobs PA-C This is a 48-jsmj-jkg-female who presents to the ER with complaints of abdominal pain and back pain x 2 days. Reporting dark stools, no vomiting. Hx of cholescystectomy, appendectomy. No fevers. No dysuria. Pt with diffuse tenderness throughout abdomen, also with BL CVA tenderness Plan: Labs, UA Reevaluation(s) Reevaluation #1: 1. UTI start the patient on levofloxacin patient had finished recent antibiotic course. 2. hypokalemia that was repleted in in the ED and repeat electrolyte showed normal level potassium. Patient was instructed to drink plenty fluids CT abdomen and pelvis is showing no acute intra-abdominal pathology. Time: 01:09 Medical Decision Making Differential Diagnosis Differential Diagnoses: The differential diagnosis associated with the presentation includes (UTI, pyelonephritis, kidney stone, colitis, diverticulitis, acute appendicitis, electrolyte derangement, severe anemia.) Admission/Observation Consideration of admission/observation: Escalation of care including admission/observation considered Lab Data MDM Lab Attestation statement: I reviewed the patient's lab results. 12/25/24 16:05 12/26/24 00:28 Labs: Lab Results 12/25/24 12/26/24 Range/Units 16:05 00:28 WBC 5.8 (4.8-10.8) X10*3/uL RBC 3.99 L (4.20-5.50) X10*6/uL Hgb 12.3 (12.0-16.0) g/dl Hct 35.0 L (37.0-47.0) % MCV 87.7 (80.0-98.0) fL MCH 30.8 (27.0-33.0) pg MCHC 35.1 H (31.0-35.0) g/dl RDW 13.0 (11.0-16.0) % Plt Count 165 D (160-400) X10*3/uL MPV 10.6 (9.4-12.3) fL Immature Gran % (Auto) 0.3 (0.0-0.4) % Neut % (Auto) 74.5 H (45-73) % Lymph % (Auto) 17.6 L (20-40) % Whiteside % (Auto) 6.6 (2-11) % Eos % (Auto) 0.7 (0-4) % Baso % (Auto) 0.3 (0-2) % Lymph # (Auto) 1.0 L (1.2-4.9) X10*3/uL Whiteside # (Auto) 0.4 (0.1-1.2) X10*3/uL Eos # (Auto) 0.0 (0.0-0.4) X10*3/uL Baso # (Auto) 0.0 (0.0-0.2) X10*3/uL Abs Immat Gran (auto) 0.02 (0.00-0.03) X10*3/uL Absolute Neuts (auto) 4.3 (2.0-8.3) x10*3/uL Absolute Nucleated RBC 0.000 (0.0-0.012) X10*3/uL Nucleated RBC % (auto) 0.0 (0.0-0.2) /100WBC Sodium 136 138 (135-145) mmol/L Potassium 2.9 L* D 3.5 D (3.3-5.1) mmol/L Chloride 103 103 (96-108) mmol/L Carbon Dioxide 25 26 (22-29) mmol/L Anion Gap 11 L 13 (12-20) BUN 17 H 15 (9-16) mg/dL Creatinine 0.72 0.63 (0.5-1.4) mg/dL Estim Creat Clear Calc 94.3 107.7 Estimated GFR > 60 > 60 Random Glucose 110 102 (60-115) mg/dL Calcium 8.6 D 8.5 (8.4-10.2) mg/dL Total Bilirubin 0.7 0.4 (0.0-1.0) mg/dL Direct Bilirubin 0.3 (0.0-0.5) mg/dL AST 36 H 29 (5-31) U/L ALT 76 H 62 H (0-31) U/L Alkaline Phosphatase 75 67 (39-117) U/L Total Protein 7.2 6.2 L (6.5-8.0) g/dL Albumin 4.5 4.0 (3.5-5.0) g/dL Lipase 15 (8-78) U/L Beta HCG, Quant < 2 mIU/mL Urine Color Dark Yellow Urine Appearance Clear Urine pH 6.5 (5.0-9.0) Ur Specific Aline >= 1.030 H (1.005-1.025) Urine Protein 30 (1+) H (Neg-Trace) mg/dL Urine Glucose (UA) Negative (Negative) mg/dL Urine Ketones 40 (Negative) mg/dL Urine Blood Negative (Negative) Urine Nitrite Negative (Negative) Ur Leukocyte Esterase Small (1+) H (Negative) Urine RBC 0-2 (0-2) /HPF Urine WBC 11-20 H (0-5) /HPF Ur Squamous Epith Cells 6-10 (0-2) /HPF Urine Bacteria 2+ (None Seen) Hyaline Casts 0-2 (0-2) /LPF Independent Interpretation I performed an independent interpretation of an: CT Scan (Abdomen and pelvis: No acute intra-abdominal or pelvic pathology.) Radiology Impression Discussion of test interpretation with radiology: I have reviewed the radiologist's reading. Medications Administered Discontinued Medications Generic Name Dose Route Start Last Admin Trade Name Freq PRN Reason Stop Dose Admin Potassium Chloride 10 meq in 100 mls @ 100 mls/hr 12/25/24 22:06 12/26/24 00:18 Potassium Chloride/H20 IV 12/25/24 23:05 Infused ONCE ONE Infusion Levofloxacin 750 mg 12/25/24 23:06 12/25/24 23:13 Levofloxacin 750 Mg Tablet PO 12/25/24 23:07 750 mg ONCE ONE Administration Potassium Chloride 40 meq 12/25/24 22:06 12/25/24 23:13 Potassium Chloride Packet 20 Meq Packet PO 12/25/24 22:07 40 meq ONCE ONE Administration Discharge Plan Discharge Clinical Impression: Acute hypokalemia, UTI (urinary tract infection) Patient Disposition: Home, Self-Care Instructions: Urinary Tract Infection in Women (ED), Potassium Content of Foods List (ED), Hypokalemia (ED) Prescriptions: New levofloxacin 750 mg tablet 750 mg PO DAILY Qty: 7 0RF No Action mirtazapine 15 mg tablet 15 mg PO BEDTIME fluoxetine 40 mg capsule 40 mg PO DAILY desogestrel-ethinyl estradiol [Apri] 0.15-0.03 mg tablet PO lamotrigine 25 mg tablet PO hydroxyzine HCl 10 mg tablet 10 mg PO TID PRN (Reason: insomnia) Zyrtec 10 mg capsule 10 mg PO DAILY Referrals: Юлия Ravi BLUEPRINTING MACHINE OPERATOR [Primary Care Provider, Internal Medicine] Print Language: German
[2024-12-25 16:12] LABS: MANUAL DIFF FLAG NO
[2024-12-25 16:15] LABS: Hematocrit 35.0 % (37.0-47.0); Hemoglobin 12.3 g/dl (12.0-16.0); Imm Gran Abs Auto 0.02 X10*3/uL (0.00-0.03); Imm Gran Pct Auto 0.3 % (0.0-0.4); Lymphocytes Absolute Auto 1.0 X10*3/uL (1.2-4.9); Mean Corpuscular HGB Conc 35.1 g/dl (31.0-35.0); Mean Corpuscular Hemoglobin 30.8 pg (27.0-33.0); Mean Corpuscular Volume 87.7 fL (80.0-98.0); NRBC Abs Auto 0.000 X10*3/uL (0.0-0.012); NRBC Pct Auto 0.0 /100WBC (0.0-0.2); Platelet Count 165 X10*3/uL (160-400); Red Blood Count 3.99 X10*6/uL (4.20-5.50); White Blood Count 5.8 X10*3/uL (4.8-10.8)
[2024-12-25 16:18] LABS: Appearance Urine Clear; Glucose Urine UA Negative (Negative); PH 6.5 (5.0-9.0); Specific Gravity - Urine >= 1.030 (1.005-1.025); UMIC TRIGGER UACC YES
[2024-12-25 16:29] LABS: UACC Culture Trigger YES
[2024-12-25 16:32] LABS: Alanine Aminotransferase 76 U/L (0-31); Albumin Level 4.5 g/dL (3.5-5.0); Alkaline Phosphatase 75 U/L (39-117); Anion Gap 11 (12-20); Aspartate Amino Transferase 36 U/L (5-31); Blood Urea Nitrogen 17 mg/dL (9-16); Calcium 8.6 mg/dL (8.4-10.2); Carbon Dioxide 25 mmol/L (22-29); Chloride 103 mmol/L (96-108); Creatinine Clr Calc Pharmacy 94.3; Estimated Glomerular Filt Rate > 60; Lipase 15 U/L (8-78); Potassium 2.9 mmol/L (3.3-5.1); Sodium 136 mmol/L (135-145); Total Protein 7.2 g/dL (6.5-8.0)
--- NOTE | 2024-12-25 18:37 | ECG_ITS ---
Test Reason : HYPOKALEMIA Blood Pressure : */* mmHG Vent. Rate : 61 BPM Atrial Rate : 61 BPM P-R Int : 144 ms QRS Dur : 104 ms QT Int : 444 ms P-R-T Axes : 33 83 60 degrees QTcB Int : 446 ms Normal sinus rhythm T wave abnormality, consider anterior ischemia Abnormal ECG When compared with ECG of 19-Dec-2018 00:40, T wave inversion more evident in Anterior leads Referred By: Apolonia Jacobs Electronically Signed By: Varinder Tony
[2024-12-25 19:49] VITALS: BP 107/71; PULSE 60; TEMP 36.5; O2SAT 100
[2024-12-25] MEDS: Potassium Chloride/H20 10 MEQ/100 ML PIGGYBACK 100 MEQ IV (23:13)
[2024-12-25] MEDS: Potassium Chloride Packet 20 MEQ PACKET 40 MEQ PO (23:13)
[2024-12-25 23:34] VITALS: BP 107/63; PULSE 65; TEMP 36.8; O2SAT 100
[2024-12-26 00:56] LABS: Alanine Aminotransferase 62 U/L (0-31); Albumin Level 4.0 g/dL (3.5-5.0); Alkaline Phosphatase 67 U/L (39-117); Anion Gap 13 (12-20); Aspartate Amino Transferase 29 U/L (5-31); Blood Urea Nitrogen 15 mg/dL (9-16); Calcium 8.5 mg/dL (8.4-10.2); Carbon Dioxide 26 mmol/L (22-29); Chloride 103 mmol/L (96-108); Creatinine Clr Calc Pharmacy 107.7; Estimated Glomerular Filt Rate > 60; Potassium 3.5 mmol/L (3.3-5.1); Sodium 138 mmol/L (135-145); Total Protein 6.2 g/dL (6.5-8.0)
[2024-12-26 05:45] VITALS: BP 107/63; PULSE 65; RESP 16; TEMP 36.8; O2SAT 100
== END 2024-12-26 01:45 | disposition home or self-care (01) ==
PROVIDERS: Physician Assistant Medical; Emergency Provider Emergency Medicine; PCP Nurse Practitioner Primary Care
DX: N39.0 Urinary tract infection, site not specified (principal); E87.6 Hypokalemia; R19.7 Diarrhea, unspecified; R10.30 Lower abdominal pain, unspecified
CPT/HCPCS: 36415; 74176; 80048; 80053; 80076; 81001; 83690; 84702; 85025; 87086; 93005; 96365; 99284; J3480

== ENCOUNTER → 2024-12-25 18:37 | Outpatient (BNV) | payer MEDICAID, SELFPAY | PROVIDERS: Emergency Provider Emergency Medicine; PCP Nurse Practitioner Primary Care; Visit Provider Internal Medicine Cardiovascular Disease | DX: R94.31 Abnormal electrocardiogram [ECG] [EKG] (principal); E87.6 Hypokalemia | CPT/HCPCS: 93010 ==

== ENCOUNTER → 2024-12-25 19:55 | Outpatient (BNV) | payer MEDICAID, SELFPAY | PROVIDERS: Emergency Provider Emergency Medicine; PCP Nurse Practitioner Primary Care; Visit Provider Radiology Diagnostic Radiology | DX: R10.814 Left lower quadrant abdominal tenderness (principal) | CPT/HCPCS: 74176 ==

== ENCOUNTER 2024-12-30 13:22 | Outpatient (REF) | payer MEDICAID, SELFPAY ==
--- OUTSIDE RECORDS SUMMARY | 2024-12-30 14:38 | XMS_ITS | Clinical Summary ---
Author Organization [facility] Address [address] [place] [address] Phone Care Team Providers Care Assembly Riveter Name Role Phone WillisKathrine thomason Primary Care Provider +1- [phone] Allergies Active Allergy Reactions Criticality Noted Date Comments Azithromycin High 08/21/2016 Other reaction(s): hives, swelling Etonogestrel Rash Low 03/27/2019 Other reaction(s): Rash Penicillins Hives 06/12/2024 Medications No known medications Surgical History Surgery Date Site/Laterality Comments OTHER SURGICAL HISTORY 11/15 PROCEDURE: [place] DILATION & CURETTAGE DX&/THER NONOBSTETRIC; COMMENT: elective TOP TONSILLECTOMY 07/18 PROCEDURE: HISTORICAL TONSILLECTOMY OVARIAN CYST REMOVAL PROCEDURE: [place] OVARIAN CYSTECTOMY UNI/BI Medical History Medical History [...] 02/01/2021 Social Influencers of Health Screening 03/07/2024 Depression Screening 05/14/2024 Influenza Vaccine (#1) 2025 , 05/20/2021, 02/19/2017, Additional history exists Cholesterol Screening (Lipid Panel) 08/01/2029 08/01/2024 DTaP,Tdap,and [...] 5 Years) and At-Risk Patients (6 to 49 Years) Aged Out No longer eligible based on patient's age to complete this topic RSV Immunization Patients Under 20 months Aged Out No longer eligible based on patient's age to complete this topic Varicella Vaccines Aged Out No longer eligible based on patient's age to complete this topic Insurance MEDICAID - [place] Care Teams Assembly Riveter Relationship Specialty Start Date End Date Kathrine Mota DO [address] [place] [address] PCP - General Internal Medicine 10/29/12
--- OUTSIDE RECORDS SUMMARY | 2024-12-30 14:38 | XMS_ITS | Encounter Summary ---
Author Organization [employer] Address [address] [place] [address] 7 [place] [address] Care Team Providers Care Lap Welder Name Role Phone Kathrine Mota DO Primary Care Provider Fadumo Belle Unavailable Reason for Visit * Reason Onset Date Comments Nurse Triage 12/25/2024 Encounter Details Date Type Department Care Team ([facility] st Contact Info) Description 12/25/2024 Telephone [facility] MED[facility]INE [address] [place] [address] Kathrine Mota DO [address] [place] [address] Nurse Triage Social History Tobacco Use Types Packs/Day Years Used Date Smoking Tobacco: Never Passive Smoke Exposure: Never Smokeless Tobacco: Never Alcohol Use Standard Drinks/Week Comments Never 0 (1 standard drink = 0.6 oz pur e alcohol) Depression Answer Date Recorded Patient Health Questionnaire-9 Score 17 11/26/2024 Patient Health Questionnaire-9 Score 17 11/26/2024 Last PHQ-9: Questionnaire Data Not on file 0 11/26/2024 Housing Stability Answer Date Recorded What is your housing situation today? I do not have housing (Staying with others, in a hotel, in a fpc, living outside on the street, on a [...] Answer Date Recorded Patient Health Questionnaire-2 Score 6 11/26/2024 Internet Access Answer Date Recorded Internet Access [...] or Lacey 07/27/2023 9: 39 AM EDT documented as of this encounter Miscellaneous Notes * Telephone Encounter - Marietta Graffo, JUDITH - 12/25/2024 10:53 AM EDT Triage call to patient who reports abdominal pain and low back pain with onset of dark runny stool this morning 5-6 stools. Unable to tolerate toast is sipping gatorade without vomiting. Had been treated for UTI at a [facility] 2 weeks ago and completed all ABT at that time. Has not had menses in2 months per patient but has no fallopian tubes per report. Patient reports that this pain is differnebt and feels she has infection inside somewhere. Disposition reviewed and patient in agreement with plan. ASK/[facility] [employer] today at 115pm. Reviewed with patient home care recommendations, reasons to call back and symptoms that require immediate evaluation in UC or ER. Patient verbalized understanding and agrees. Protocol Used: Diarrhea (Adult) Protocol-Based Disposition: See in Office or Video Visit Today Video visit offer not recorded Positive Triage Questions: * Moderate diarrhea (e.g., 4-6 times / day more than normal) and present > 48 hours (2 days) * Abdominal pain (Exceptions: Pain clears completely with each passage of diarrhea stool, or symptoms similar to previously diagnosed irritable bowel syndrome.) * All higher-acuity triage questions were negative Care Advice Discussed: * Fluid Therapy During Mild to Moderate Diarrhea * Food and Nutrition During Mild to Moderate Diarrhea * Reasons To Call Back - You become worse * Telephone Encounter - Rick Bolden - 12/25/2024 10:48 AM EDT Symptoms: Abdominal Pain - Female - Not , Back Pain - Not From Injury Outcome: Talk to a nurse or provider within 15 minutes Reason: Severe pain now Please contact pt at [phone]. documented in this encounter Plan of Treatment Not on file documented as of this encounter Visit Diagnoses Not on filedocumented in this encounter Additional Health Concerns Assessment Noted Time PHQ-9 Depression Total Score: 17 025 4:14 PM EDT documented as of this encounter Care Teams Lap Welder Relationship Specialty Start Date End Date Kathrine Mota DO [address] [place] [address] PCP - General Family Medicine 05/14/18 Fadumo Belle 11/06/24 documented as of this encounter
[2024-12-30 16:34] LABS: Hematocrit 34.8 % (37.0-47.0); Hemoglobin 11.7 g/dl (12.0-16.0); Mean Corpuscular HGB Conc 33.6 g/dl (31.0-35.0); Mean Corpuscular Hemoglobin 30.2 pg (27.0-33.0); Mean Corpuscular Volume 89.9 fL (80.0-98.0); NRBC Abs Auto 0.000 X10*3/uL (0.0-0.012); NRBC Pct Auto 0.0 /100WBC (0.0-0.2); Platelet Count 211 X10*3/uL (160-400); Red Blood Count 3.87 X10*6/uL (4.20-5.50); White Blood Count 5.7 X10*3/uL (4.8-10.8)
[2024-12-30 16:55] LABS: Alanine Aminotransferase 56 U/L (0-31); Albumin Level 4.4 g/dL (3.5-5.0); Alkaline Phosphatase 72 U/L (39-117); Anion Gap 12 (12-20); Aspartate Amino Transferase 27 U/L (5-31); Blood Urea Nitrogen 12 mg/dL (9-16); Calcium 9.3 mg/dL (8.4-10.2); Carbon Dioxide 28 mmol/L (22-29); Chloride 104 mmol/L (96-108); Estimated Glomerular Filt Rate > 60; Potassium 3.5 mmol/L (3.3-5.1); Sodium 140 mmol/L (135-145); Total Protein 6.9 g/dL (6.5-8.0)
[2024-12-30 16:59] LABS: Alanine Aminotransferase 57 U/L (0-31); Albumin Level 4.4 g/dL (3.5-5.0); Alkaline Phosphatase 73 U/L (39-117); Anion Gap 11 (12-20); Aspartate Amino Transferase 28 U/L (5-31); Blood Urea Nitrogen 12 mg/dL (9-16); Calcium 9.1 mg/dL (8.4-10.2); Carbon Dioxide 28 mmol/L (22-29); Chloride 104 mmol/L (96-108); Estimated Glomerular Filt Rate > 60; Potassium 3.5 mmol/L (3.3-5.1); Sodium 139 mmol/L (135-145); Total Protein 6.9 g/dL (6.5-8.0)
[2024-12-31 08:40] LABS: HBS Num1 809.76 mIU/mL (0-7.99); HBS Num1 809.96 mIU/mL (0-7.99); HBc Num1 0.10 S/CO (0.00-0.79); HBsAGNum1 0.42 S/CO (0.00-0.99); HBsAGNum1 0.50 S/CO (0.00-0.99); HIV Num 1 0.05 S/CO (0.00-0.99); Hepatitis A Antibody IgM 0.21 Index (0-0.79); Hepatitis B Surface Antigen Negative (Negative); ~HepC Num1 0.10 S/CO (0.00-0.79); ~HepC Num1 0.13 S/CO (0.00-0.79); ~Hepatitis A Antibody IgM Nonreactive (Nonreactive); ~Hepatitis B Surface Antibody REACTIVE (Nonreactive); ~Hepatitis C Antibody Nonreactive (Nonreactive)
== END 2024-12-30 13:23 | disposition home or self-care (01) ==
LOC: HO.HHCL 13:22
PROVIDERS: Nurse Practitioner Primary Care; PCP Family Medicine; Visit Provider Family Medicine
DX: Z11.4 Encounter for screening for human immunodeficiency virus [HIV] (principal); Z11.59 Encounter for screening for other viral diseases; Z11.3 Encounter for screening for infections with a predominantly sexual mode of transmission; E87.6 Hypokalemia; R10.30 Lower abdominal pain, unspecified; R82.2 Biliuria
CPT/HCPCS: 36415; 80048; 80076; 85027; 86592; 86704; 86706; 86709; 86803; 87340; 87389

== ENCOUNTER 2025-01-22 16:36 | Outpatient (REF) | payer MEDICAID, SELFPAY ==
--- OUTSIDE RECORDS SUMMARY | 2025-01-22 11:00 | XMS_ITS | Encounter Summary ---
Author Organization [employer] Address [address] [place] [address] 7 [place] [address] Care Team Providers Care Operating Systems Programmer Name Role Phone Kathrine Mota DO Primary Care Provider + [phone] Fadumo Belle Unavailable Reason for Referral * Imaging (STAT) - Authorized Specialty Diagnoses / Procedures Referred By Contac t Referred To Contact Radiology Diagnoses Lymphadenopathy, inguinal Procedures US SOFT TISSUE Marni Stout CNM [address] [place] [address] Phone: tel: fax: [address] Phone: tel: fax: Referral ID Status Reason Start Date Expiration Date V isits Requested Visits Authorized [id number] Authorized 01/22/2025 01/22/2026 1 1 Reason for Visit * Reason Comments Pelvic Pain Encounter Details Date Type Department Care Team ([facility] st Contact Info) Description 01/22/2025 11:00 AM EDT Office Visit [facility] [address] [place] [address] Marni Stout CNM [address] [place] [address] Lower abdominal pain (Primary Dx); Screening examination for venereal disease; Lymphadenopathy, inguinal Social History Tobacco Use Types Packs/Day Years Used Date Smoking Tobacco: Never Passive Smoke Exposure: Never Smokeless Tobacco: Never Tobacco Cessation:Counseling Given: [...] with others, in a hotel, in a penitentiary, living outside on the street, on a [...] AM EDT documented as of this encounter Last Filed Vital Signs Vital Sign Reading Time Taken Comments Blood Pressure 90/48 01/22/2025 10:29 AM EDT Pulse 82 01/22/2025 10:29 AM EDT Temperature 36.9 C (98.5 F) 01/22/2025 10:29 AM EDT Respiratory Rate 14 01/22/2025 10:2 9 AM EDT Oxygen Saturation 99% 01/22/2025 10: 29 AM EDT Inhaled Oxygen Concentration - - Weight 59.3 kg (130 lb 12.8 oz) 025 10:29 AM EDT Height - - Body Mass Index 21.77 12/30/2024 12:28 PM EDT documented in this encounter Progress Notes * Marni Stout, BRAYAN - 01/22/2025 11:00 AM EDT Subjective Patient ID: Jeniffer Nagy is a 34 y.o. female who presents for Hospice/Home Health Aide visit Notes worsening pelvic pain recently, maybe vaginal odor. Denies urinary symptoms. Pain is midline and LLQ, radiates to back at times. Per triage, passed what sounds like endometrial cast recently. Also notes genital lumps for past few weeks or month. Treated for UTI at urgent care then subsequently seen in ER 12/2024. No worrisome findings on pelvic/abdominal CT 12/2024. Possible pelvic congestionsyndrome, 3cm right ovarian cyst on ultrasound 11/2024. Followed by [facility]. Referred by PCP back to [facility] for hysterectomy consult 11/2024, and referred to interventional radiology for treatment of pelvic congestion syndrome. On oral contraceptive pill for menstrual suppression x 2 months. Denies ACHES. Pap NIL 12/2023. Has tubal ligation. 1 AMAB partner, pain with sex. LMP 9/5, still bleeding lightly. Review of Systems Constitutional: Negative for chills and fever. Gastrointestinal: Positive for constipation. Genitourinary: Positive for dyspareunia, menstrual problem, pelvic pain and vaginal bleeding. Negative for dysuria, frequency, hematuria and vaginal discharge. Musculoskeletal: Positive for back pain. Objective BP (!) 90/48 (BP Location: Left arm, Patient Position: Sitting, BP Cuff Size: Adult) Pulse 82 Temp 98.5 ??F (36.9 ??C) (Oral) Resp 14 Wt 130 lb 12.8 oz (59.3 kg) LMP 01/16/2025 (Approximate) SpO2 99% BMI 21.77 kg/m?? Physical Exam Constitutional: Appearance: Normal appearance. Abdominal: Tenderness: There is abdominal tenderness in the suprapubic area and left lower quadrant. There is no right CVA tenderness, left CVA tenderness, guarding or rebound. Genitourinary: Labia: Right: No rash, tenderness, lesion or injury. Left: No rash, tenderness, lesion or injury. Vagina: No signs of injury and foreign body. No vaginal discharge, erythema, tenderness, bleeding, lesions or prolapsed vaginal evans. Cervix: Erythema present. No cervical motion tenderness, discharge, friability, lesion, cervical bleeding or eversion. Uterus: Not enlarged and not tender. Adnexa: Right: No mass, tenderness or fullness. Left: No mass, tenderness or fullness. Comments: 2-3cm mass right inguinal area, and 3 smaller ones ? Adenopathy. No tenderness of adductors. No vulvodynia/vestibulodynia. Tenderness right pelvic floor iliococcygeus and piriformis. Neurological: Mental Status: She is alert. Psychiatric: Mood and Affect: Mood normal. Behavior: Behavior normal. Comments: Appears uncomfortable, in pain Assessment/Plan Diagnoses and all orders for this visit: Lower abdominal pain - POCT Urine test negative. Exam not suspicious for PID. Using Tylenol for pain with incomplete relief. Will rx ibuprofen. Urged to contact [facility] as she is well established with them. Seek care at ER if severe pain/heavy bleeding. Reassured, endometrial cast is rare, unlikely to recur. Sometimes happens with oral contraceptive pill start. Consider PT for pelvic floor dysfunction, but will get soft tissue ultrasound to evaluate possible adenitis first and rule out STI. Screening examination for venereal disease - Chlamydia/N. Gonorrhoeae RNA, TMA, Vagina - Bacterial Vaginosis, Yeast and Trich; Future Gonorrhea/Chlamydia, bacterial vaginosis swab sent. Will treat positive results. Lymphadenopathy, inguinal - US SOFT TISSUE; Future Will order soft tissue ultrasound. Normal white count 12/30. Message sent to PCP as FYI. Other orders - ibuprofen 600 MG tablet; Take 1 tablet (600 mg) by mouth 3 times daily. Take every 8 hours with food x 7 days documented in this encounter Plan of Treatment Scheduled Orders Name Type Priority Associated Diagnoses Orde r Schedule Chlamydia/N. Gonorrhoeae RNA, TMA, Vagina Microbiology Routine Screening examination for venereal disease Ordered: 01/22/2025 Bacterial Vaginosis, Yeast and Trich Microbiology Routine Screening examination for venereal disease Expected: 01/22/2025 (Approximate), Expires: 01/22/2026 US SOFT TISSUE Imaging STAT Lymphadenopathy, inguinal Expected: 01/22/2025, Expires: 01/22/2026 documented as of this encounter Procedures Procedure Name Priority Date/Time Associated Diagnosis Comments POCT , URINE Routine 01/22/2025 11:01 AM EDT Lower abdominal pain documented in this encounter Results * POCT Urine (01/22/2025 11:01 AM EDT) Preg Test, Ur Negative Negative, Indeterminate, None Detected, Invalid, Specimen unsatisfactory for evaluation, Weakly Positive, 2+ QC Media Lot # [id number] Lot# Expiration Date [id number] Urine 01/22/2025 11:0 1 AM EDT Marni GRIGGS POINT OF CARE TEST ENTER/ EDIT ORDERABLES Final Result documented in this encounter Visit Diagnoses Diagnosis Lower abdominal pain- Primary Abdominal pain, other specified site Screening examination for venereal disease Lymphadenopathy, inguinal documented in this encounter Additional Health Concerns Assessment Noted Time PHQ-9 Depression Total Score: 17 07/16/2 025 4:14 PM EDT documented as of this encounter Care Teams Operating Systems Programmer Relationship Specialty Start Date End Date Kathrine Mota DO [address] [place] [address] PCP - General Family Medicine 05/14/18 Fadumo Belle 11/06/24 documented as of this encounter
--- OUTSIDE RECORDS SUMMARY | 2025-01-22 18:58 | XMS_ITS | Encounter Summary ---
Author Organization [employer] Address [address] [place] [address] 7t [place] [address] Care Team Providers Care Char Conveyor Tender Cellar Name Role Phone Aylin Motafer Primary Care Provider [phone] Fadumo Belle Unavailable Encounter Details Date Type Department Care Team ([facility] st Contact Info) Description 12/31/2024 Results Follow-Up [facility] [address] [place], [place] [id number] Юлия Ravi ANP [address] [place] [address] Hepatic Function Panel, Hepatitis A,B,C Profile Social History Tobacco Use Types Packs/Day Years [...] with others, in a hotel, in a nursing home, living outside on the street, on a [...] AM EDT documented as of this encounter Plan of Treatment Not on file documented as of this encounter Visit Diagnoses Not on filedocumented in this encounter Additional Health Concerns Assessment Noted Time PHQ-9 Depression Total Score: 17 025 4:14 PM EDT documented as of this encounter Care Teams Char Conveyor Tender Cellar Relationship Specialty Start Date End Date Kathrine Mota DO [address] [place] [address] PCP - General Family Medicine 05/14/18 Fadumo Belle 11/06/24 documented as of this encounter
--- OUTSIDE RECORDS SUMMARY | 2025-01-22 18:58 | XMS_ITS | Encounter Summary ---
Author Organization [employer] Address [address] [place] [address] 7 [place] [address] Care Team Providers Care Dining Host Name Role Phone NakulKathrine Primary Care Provider [phone] Fadumo Belle Unavailable Encounter Details Date Type Department Care Team ([facility] st Contact Info) Description 12/25/2024 Results Follow-Up [facility] MEDICINE [address] [place], [place] [phone] Юлия Ravi ANP [address] [place] [address] CBC auto differential, Urinalysis, Complete, with Reflex to Culture, Hepatic Function Panel, Additional followed-up results: 2 Social History Tobacco Use Types Packs/Day Years [...] with others, in a hotel, in a care home, living outside on the street, on [...] as of this encounter Miscellaneous Notes * Result Encounter Note - IRMA Guaman - 12/25/2024 4:48 PM EDT Pt at ED documented in this encounter Plan of Treatment Not on file documented as of this encounter Visit Diagnoses Not on filedocumented in this encounter Additional Health Concerns Assessment Noted Time PHQ-9 Depression Total Score: 17 025 4:14 PM EDT documented as of this encounter Care Teams Dining Host Relationship Specialty Start Date End Date Kathrine Mota DO [address] [place] [address] PCP - General Family Medicine 05/14/18 Fadumo Belle 11/06/24 documented as of this encounter
--- OUTSIDE RECORDS SUMMARY | 2025-01-22 18:58 | XMS_ITS | Encounter Summary ---
Author Organization [employer] Address [address] [place] [address] 7t [place] [address] Care Team Providers Care Blast Furnace Tender Name Role Phone NakulKathrine Primary Care Provider [phone] Fadumo Belle Unavailable Encounter Details Date Type Department Care Team (Latest Contact Info) Description 01/22/2025 Travel Social History Tobacco Use Types Packs/Day Years [...] with others, in a hotel, in a group home, living outside on the street, on [...] documented as of this encounter Care Teams Blast Furnace Tender Relationship Specialty Start Date End Date Kathrine Mota DO [address] [place] [address] PCP - General Family Medicine 05/14/18 Fadumo Belle 11/06/24 documented as of this encounter
--- OUTSIDE RECORDS SUMMARY | 2025-01-22 18:58 | XMS_ITS | Encounter Summary ---
Author Organization [employer] Address [address] [place] [address] 7 [place] [address] Care Team Providers Care Director Of Labor And Delivery Name Role Phone Kathrine Mota DO Primary Care Provider [phone] Fadumo Belle Unavailable Reason for Visit * Reason Onset Date Comments Nurse Triage 01/22/2025 Encounter Details Date Type Department Care Team ([facility] st Contact Info) Description 01/22/2025 Telephone [facility] MEDICINE [address] [place] [address] Kathrine Mota DO [address] [place] [address] Nurse Triage Social History Tobacco Use Types [...] with others, in a hotel, in a half-way, living outside on the street, on a [...] encounter Miscellaneous Notes * Telephone Encounter - Portia Matson RN - 01/22/2025 9:41 AM EDT Called pt. Pt. States that she has pelvic pain pain 01/21 and low back pain. Pt. [facility] Pt. States that she has random discharge from vagina that looks like raw meat? Nodischarge at present. No fever. Pt. Was stating that she hyad discussed getting a hyterectomy in past with PCP. Pt. States she has been seen by Dr. Fournier for this and was supposed to get referral Radha but, never heard anything. Pt. Does not want to go to ED because she states I have been there for this a few months ago and nothing was done, they just said to see my PCP . I made appt. With pt.To see Marni today at 11am to see what assessment and plan will be for pt. Protocol Used: Vaginal Discharge (Adult) Protocol-Based Disposition: Go to Office or Video Visit Now Positive Triage Questions: * Constant abdominal pain lasting > 2 hours * Patient wants to be seen * Abnormal color vaginal discharge (i.e., yellow, green, hassan) * All higher-acuity triage questions were negative * Telephone Encounter - Ronald Blas - 01/22/2025 9:08 AM EDT Symptom: Abdominal Pain - Female - Not Outcome: Talk to a nurse or provider within 15 minutes Reason: Severe pain now The caller accepted this outcome. Contact pt at [phone] documented in this encounter Plan of Treatment Not on file documented as of this encounter Visit Diagnoses Not on filedocumented in this encounter Additional Health Concerns Assessment Noted Time PHQ-9 Depression Total Score: 17 07/ 025 4:14 PM EDT documented as of this encounter Care Teams Director Of Labor And Delivery Relationship Specialty Start Date End Date Kathrine Mota DO [address] [place] [address] PCP - General Family Medicine 05/14/18 Fadumo Belle 11/06/24 documented as of this encounter
--- OUTSIDE RECORDS SUMMARY | 2025-01-22 18:58 | XMS_ITS | Encounter Summary ---
Author Organization [employer] Address [address] [place] [address] 7 [place] [address] Care Team Providers Care Glove Wrapper Name Role Phone Kathrine Mota DO Primary Care Provider [phone] Rossi Herzog Unavailable Fadumo Belle Unavailable Encounter Details Date Type Department Care Team ([facility] st Contact Info) Description 01/16/2023 Orders Only [facility] [address] [place] [address] Kathrine Alexander LPN Social History Tobacco Use Types Packs/Day Years Used Date Smoking Tobacco: Never Assessed Comments Unknown Sex and Gender Information Value [...] Diagnoses Not on filedocumented in this encounter Care Teams Glove Wrapper Relationship Specialty Start Date End Date Kathrine Mota DO [address] [place] [address] PCP - General Family Medicine 05/14/18 Rossi Herzog 10/27/24 11/06/24 Fadumo Belle 11/06/24 documented as of this encounter
--- OUTSIDE RECORDS SUMMARY | 2025-01-22 18:58 | XMS_ITS | Encounter Summary ---
Author Organization [employer] Address [address] [place] [address] 7 [place] [address] Care Team Providers Care License Inspector Name Role Phone Kathrine Mota DO Primary Care Provider + [phone] Rossi Herzog Unavailable Fadumo Belle Unavailable Encounter Details Date Type Department Care Team (Late st Contact Info) Description 09/09/2024 Orders Only [facility] MEDICINE [address] [place] [address] Marni Stout CNM [address] [place] [address] Social History Tobacco Use Types Packs/Day Years [...] What is your housing situation today? I have eneida orellana 06/21/[address] you li ve. Do you have problems with any of the following? None of the above 06/21/2023 Food Insecurity Answer Date Recorded Within the [...] on file documented as of this encounter Procedures Procedure Name Priority Date/Time Associated Diagnosis Comments PAP SMEAR Routine 12/21/2023 12:00 AM EDT documented in this encounter Results * Pap Smear (12/21/2023 12:00 AM EDT) Swab us Historical Provider MD LAB CYTOLOGY ORDERABLES F inal Result [facility] [address] [place] [address] documented in this encounter Visit Diagnoses Not on filedocumented in this encounter Additional Health Concerns Assessment Noted Time PHQ-9 Depression Total Score: 13 025 9:53 AM EDT documented as of this encounter Care Teams License Inspector Relationship Specialty Start Date End Date Kathrine Mota DO [address] [place] [address] PCP - General Family Medicine 05/14/18 Rossi Herzog 10/27/24 11/06/24 Fadumo Belle 11/06/24 documented as of this encounter
--- OUTSIDE RECORDS SUMMARY | 2025-01-22 18:58 | XMS_ITS ---
Author Organization [employer] Address [address] [place] [address] 7 [place] [address] Care Team Providers Care Stunt Performer Name Role Phone Kathrine Mota DO Primary Care Provider [phone] Fadumo Belle C3 CM Maternal Advocate Status:Enrolled (Active) Start date:10/27/2024 Enrollment date:11/03/2024 Enrollment reason:Referred by provider Overview SDOH Referral- Patient came in to health center looking for assistance with housing. Pt has open case with RN NERI Vila. Case Team Name Relationship Phone Fadumo Belle(Responsible Staff) [phone] Continued Care and Services Coordination
--- OUTSIDE RECORDS SUMMARY | 2025-01-22 18:58 | XMS_ITS | Clinical Summary ---
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 02/02/20 21 Active cetirizine (ZyrTEC) 10 MG tabletIndicatio ns:Seasonal allergic rhinitis, unspecified trigger Take 1 tablet by mouth every day 90 tablet 1 08/02/19 25 Active Nutritional Supplements (Boost High Protein) liquid Take 1 Bottle by mouth 2 times daily. 94582 mL 11 10/17/19 25 026 Active mirtazapine (Remeron) 15 MG tablet TAKE 1 TABLET BY MOUTH AT BEDTIME 30 tablet 12/25/19 25 Active polycarbophil (Fibercon) 625 MG tablet Take 1 tablet (625 mg) by mouth 2 times daily. 180 tablet 3 01/17/20 25 026 Active Saccharomyces boulardii (probiotic) 250 MG capsule Take 1 capsule (250 mg) by mouth Once per day. 30 capsule 3 01/17/20 25 Active ibuprofen 600 MG tablet Take 1 tablet (600 mg) by mouth 3 times daily. Take every 8 hours with food x 7 days 21 tablet 01/23/20 25 025 Active mirtazapine (Remeron) 15 MG tablet Take 1 tablet (15 mg) by mouth at bedtime. 30 tablet 11/27/19 25 025 Discontinued polycarbophil (Fibercon) 625 MG tablet Take 1 tablet (625 mg) by mouth 2 times daily. 180 tablet 3 12/31/19 25 025 Discontinued(Re order (will not trigger notification to Pharmacy)) Saccharomyces boulardii (probiotic) 250 MG capsule Take 1 capsule (250 mg) by mouth Once per day. 30 capsule 3 12/31/19 25 025 Discontinued(Re order (will not trigger notification to Pharmacy)) Active Problems Problem Noted Date Diagnosed Date Severe episode of recurrent major depressive disorder, without psychotic features 11/26/2024 Assessment & Plan (11/26/2024 4:34 PM EDT): During IBH Consult Jeniffer presenting with depressed mood, Tearful, crying spells , hopelessness, irritable mood, loss of interests/pleasure , sense of isolation/loneliness , isolating, change in appetite or weight unintentional weight loss , changes in sleep difficulty falling asleep, psychomotor retardation, fatigue/loss of energy, worthlessness, inappropriate/excessive guilt , difficulty concentrating, indecisiveness, excessive worry/anxiety, difficulty controlling worry, anxiety/worry associated to restlessness and/or feeling keyed-up/On edge , easily fatigued , difficulty concentrating and/or mind going blank , irritability, muscle tension , and sleep disturbance difficulty falling asleep, Fear , and sense of dread , and Distorted body image, Intense focus on weight, and Other: persistent restriction of energy intake, significant low weight than expected for her age and sex, persistent behavior that interferes with weight gain, fear of becoming fat, fear is often irrational; for a period of 6-12 mo, for most or all symptoms in the context of divorce/separation, financial concern, and housing. Pt presented with sxs described above associated with the following stressors: housing insecurity, chronic mental conditions, recent break-up. Pt lives with her six children; pt feels overwhelmed and stressed-out. Often the pt restricts her food intake leading to significant low body weight . This is an issue that others in her [place] are also worry about. Jeniffer feels motivated and ready to take the next steps as part of self-care. She prefers in-person sessions and was self-referred to OP therapy with [facility] where she will also start medication management per her request *intake completed today*. JOE (generalized anxiety disorder) 11/26/2024 Assessment & Plan (11/26/2024 4:34 PM EDT): During IBH Consult Jeniffer presenting with depressed mood, Tearful, crying spells , hopelessness, irritable mood, loss of interests/pleasure , sense of isolation/loneliness , isolating, change in appetite or weight unintentional weight loss , changes in sleep difficulty falling asleep, psychomotor retardation, fatigue/loss of energy, worthlessness, inappropriate/excessive guilt , difficulty concentrating, indecisiveness, excessive worry/anxiety, difficulty controlling worry, anxiety/worry associated to restlessness and/or feeling keyed-up/On edge , easily fatigued , difficulty concentrating and/or mind going blank , irritability, muscle tension , and sleep disturbance difficulty falling asleep, Fear , and sense of dread , and Distorted body image, Intense focus on weight, and Other: persistent restriction of energy intake, significant low weight than expected for her age and sex, persistent behavior that interferes with weight gain, fear of becoming fat, fear is often irrational; for a period of 6-12 mo, for most or all symptoms in the context of divorce/separation, financial concern, and housing. Pt presented with sxs described above associated with the following stressors: housing insecurity, chronic mental conditions, recent break-up. Pt lives with her six children; pt feels overwhelmed and stressed-out. Often the pt restricts her food intake leading to significant low body weight . This is an issue that others in her [place] are also worry about. Jeniffer feels motivated and ready to take the next steps as part of self-care. She prefers in-person sessions and was self-referred to OP therapy with [facility] where she will also start medication management per her request *intake completed today*. Anorexia nervosa 11/26/2024 Assessment & Plan (11/26/2024 4:34 PM EDT): During IBH Consult Jeniffer presenting with depressed mood, Tearful, crying spells , hopelessness, irritable mood, loss of interests/pleasure , sense of isolation/loneliness , isolating, change in appetite or weight unintentional weight loss , changes in sleep difficulty falling asleep, psychomotor retardation, fatigue/loss of energy, worthlessness, inappropriate/excessive guilt , difficulty concentrating, indecisiveness, excessive worry/anxiety, difficulty controlling worry, anxiety/worry associated to restlessness and/or feeling keyed-up/On edge , easily fatigued , difficulty concentrating and/or mind going blank , irritability, muscle tension , and sleep disturbance difficulty falling asleep, Fear , and sense of dread , and Distorted body image, Intense focus on weight, and Other: persistent restriction of energy intake, significant low weight than expected for her age and sex, persistent behavior that interferes with weight gain, fear of becoming fat, fear is often irrational; for a period of 6-12 mo, for most or all symptoms in the context of divorce/separation, financial concern, and housing. Pt presented with sxs described above associated with the following stressors: housing insecurity, chronic mental conditions, recent break-up. Pt lives with her six children; pt feels overwhelmed and stressed-out. Often the pt restricts her food intake leading to significant low body weight . This is an issue that others in her [place] are also worry about. Jeniffer feels motivated and ready to take the next steps as part of self-care. She prefers in-person sessions and was self-referred to OP therapy with [facility] where she will also start medication management per her request *intake completed today*. Allergy to penicillin 06/06/2023 06/06/2023 History of hemorrhage 06/06/2023 06/06/2023 History of delivery 05/19/2022 Severe anxiety 05/19/2022 Chronic female pelvic pain 05/19/2022 BMI 20.0-20.9, adult 05/19/2022 Abnormal uterine bleeding 05/18/2022 Allergic rhinitis 05/18/2022 Eczema 09/15/2015 Moderate episode of recurrent major depressive d isorder 09/15/2015 Resolved Problems Problem Noted Date Diagnosed Date Resolved Date Danni cerclage present 06/06/2023 06/06/2023 Request for sterilization 06/06/2023 06/06/2023 Rh negative, maternal 06/06/2023 06/06/20232024 Anxiety and depression 05/19/202208/01 Overview (06/06/2023): CHD Encounters * This document contains information received from the source organization and may not represent a complete record from that organization. Date Type Department Care Team Description 01/22/2025 11:00 AM EDT Office Visit [address] [address] Marni Stout CNM Lower abdominal pain (Primary Dx); Screening examination for venereal disease; Lymphadenopathy, inguinal 01/22/2025 Travel 01/22/[address] [address] Kathrine Mota DO Nurse Triage 01/16/2025 9:15 AM EDT Telemedicine [address] [address] Kathrine Mota DO 01/16/2025 Travel 01/15/2025 Patient Outreach [address] [address] Kathrine Mota DO Care Coordination (C3CM/CHW ANDREW Sahu#2- Follow up call-LV) 01/09/2025 Travel 01/07/[address] [address] Kathrine Mota DO Chart Prep 12/31/2024 Results Follow-Up [facility] [address] [place] [id number] Theo Galvin ANP Hepatic Function Panel, Hepatitis A,B,C Profile 12/30/2024 12:00 PM EDT Office Visit [address] [address] Kathrine Mota DO Hypokalemia (Primary Dx); Complicated UTI (urinary tract infection); Alternating constipation and diarrhea; Pelvic congestion syndrome 12/30/2024 Patient Outreach [address] [address] Kathrine Mota DO Care Coordination (Mayela/ANDREW Waters#1- Follow up call-LVM) 12/30/2024 Travel 12/29/2024 Patient Outreach [address] [address] Kathrine Mota DO 12/29/[address] [address] Kathrine Mota DO Chart Prep 12/26/2024 Orders Only GENERIC EXTERNAL DATA DEPARTMENT Provider, Generic External Data 12/25/2024 1:15 PM EDT Office Visit [address] [address] Theo Galvin ANP Generalized abdominal pain (Primary Dx); Lower abdominal pain; Bilirubin in urine 12/25/2024 Results Follow-Up [address] [address] Theo Galvin ANP CBC auto differential, Urinalysis, Complete, with Reflex to Culture, Hepatic Function Panel, Additional followed-up results: 2 12/25/2024 Orders Only GENERIC EXTERNAL DATA DEPARTMENT Provider, Generic External Data 12/25/[address] [address] Theo Galvin ANP ED expect 12/25/2024 Travel 12/25/[address] [address] Kathrine Mota DO Nurse Triage 12/24/2024 Refill [facility] [address] [place] [address] Neftaly Lee MD 12/16/2024 Patient Outreach [address] [address] Kathrine Mota DO Care Coordination (Mayela/ANDREW Waters- Follow up call) 12/10/2024 Orders Only [facility] [address] [place] [phone] Kathrine Mota DO Abnormal uterine bleeding (Primary Dx) 12/05/2024 Patient Outreach [address] [address] Kathrine Mota DO Care Coordination (C3/ANDREW Waters#1- Follow up LVM) 11/28/2024 Patient Outreach [address] [address] Kathrine Mota DO 11/27/2024 Patient Outreach [address] [address] Kathrine Mota DO Care Coordination (Marianna/ANDREW Waters- Follow up call) 11/26/2024 5:00 PM EDT Office Visit [facility] [address] [place] [address] Neftaly Lee MD Moderate episode of recurrent major depressive disorder (CMS/HCC) (Primary Dx); Severe anxiety; Insomnia, unspecified type 11/26/[address] [address] Kathrine Mota DO 11/26/2024 Travel 11/26/[address] [address] Kathrine Mota DO Nurse Triage 11/17/[address] [address] Kathrine Mota DO Results 11/12/2024 Patient Outreach [address] [address] Kathrine Mota DO Care Coordination (C3/ANDREW Waters#1- Missed appt with [facility] for housing search-LVM) 11/10/2024 Patient Outreach [address] [address] Kathrine Mota DO Care Coordination (C3/CHShabnam Belle, TC- Follow up call) 11/10/[address] [address] Kathrine Mota DO Care Management ([facility] Graduation) 11/06/2024 Patient Outreach [address] [address] Kathrine Mota DO Care Coordination ([facility]/W Fadumo Belle, In person meet) 11/06/2024 Patient Outreach [address] [address] Kathrine Mota, 10/27/2024 Patient Outreach [address] [address] Kathrine Mota, 10/27/2024 Patient Outreach [address] [address] Kathrine Mota, 10/27/2024 Patient Outreach [address] [address] Kathrine Mota DO from Last 3 Months Immunizations Immunization Administration [...] tox oid, preservative free, adsorbed 03/07/2006,08/05/2002 Tdap 06/19/2023,,02/01/2021,2016,05/02/2013,07/17/2011,07/19/2009 Family History Medical History Relation Name Comments [...] with others, in a hotel, in a usp, living outside on the street, on a [...] 12.8 oz) 025 10:29 AM EDT Height 165.1 cm (5' 5 ) 12/30/2024 12:2 8 PM EDT Body Mass Index 21.77 12/30/2024 12:28 PM EDT Plan of Treatment Health Maintenance Due Date Last Done Comments Family Planning (PISQ) 10/05/2003 HPV Vaccines (2 - 3-dose series) 06/28/2006 05/31/2006 COVID-19 Vaccine ( season) 2025 02/22/2021, 02/01/2021 Influenza Vaccine (#1) 2025 , 02/12/2023, 05/20/2021, Additional history exists Cervical Cancer Screening 04/12/2025 HPV/Cotest 04/12/2025 04/12/2022, 04/15, 03/27/2019 Depression Monitoring 05/29/2025 11/26/2024, 025 Alcohol/Substance Use Screening 08/01/2025 08/01/2024 SDOH Screening 11/06/2025 11/06/2024 Disability Screening 12/25/2025 12/25/2024 Tobacco Screening 01/22/2026 01/22/2025 Pap Smear 12/20/2026 12/21/2023, 03/16, 05/12/2020 DTaP/Tdap/Td [...] 01/02/1991, Additional history exists HIV Screening Completed 12/30/2024, 07/13, 02/01/2021 Hepatitis C Screening Completed 12/30/2024 , 12/30/2024, 08/01/2024, Additional history exists Hepatitis A Vaccines Aged Out No long [...] 01/22/2025 11:01 AM EDT Lower abdominal pain HEPATITIS B SURFACE ANTIBODY, QUALITATIVE Routine 12/30/2024 1:27 PM EDT Hypokalemia RPR (MONITOR) W/REFL TITER Routine 12/30/2024 1:27 PM EDT Hypokalemia HEPATITIS C AB W/REFL TO HCV RNA, QN, PCR Routine 12/30/2024 1:27 PM EDT Hypokalemia HIV 1/2 ANTIGEN/ANTIBODY, FOURTH GENERATION W/RFL Routine 12/30/2024 1:27 PM EDT Hypokalemia HEPATITIS B SURFACE ANTIGEN, EIA Routine 12/30/2024 1:27 PM EDT Hypokalemia BASIC METABOLIC PANEL Routine 12/30/2024 1:27 PM EDT Hypokalemia CBC Routine 12/30/2024 1:27 PM EDT Hypokalemia HEPATIC FUNCTION PANEL Routine 1:27 PM EDT Hypokalemia HEPATITIS PANEL, GENERAL Routine 12/30/2024 1:27 PM EDT Lower abdominal pain Bilirubin in urine BASIC METABOLIC PANEL Routine 12/30/2024 1:27 PM EDT Lower abdominal pain HEPATIC FUNCTION PANEL Routine 1:27 PM EDT Lower abdominal pain Bilirubin in urine COMPREHENSIVE METABOLIC PANEL Routine 12/26/2024 12:[address] ABDOMEN PELVIS WO CONTRAST Routine 12/25/2024 10:04 PM EDT CULTURE, URINE, ROUTINE Routine 12/25/2024 4:30 PM EDT HCG, TOTAL, QN Routine 12/25/2024 4:05 PM EDT LIPASE Routine 12/25/2024 4:05 PM EDT BASIC METABOLIC PANEL Routine 12/25/2024 4:05 PM EDT HEPATIC FUNCTION PANEL Routine 4:05 PM EDT URINALYSIS, COMPLETE, WITH REFLEX TO CULTURE Routine 12/25/2024 4:05 PM EDT CBC WITH AUTO DIFFERENTIAL Routine 12/25/2024 4:05 PM EDT POCT URINALYSIS DIPSTICK Routine 12/25/2024 1:11 PM EDT Lower abdominal pain US PELVIS TRANSVAGINAL Routine 1:00 PM EDT Abnormal uterine bleeding PAP SMEAR Routine 12/21/2023 12:00 AM EDT THINPREP IMAGING PAP AND HPV MRNA E6/E7 WITH REFLEX TO HPV 16,18/45 Routine 04/12/2022 9:20 AM EST from Last 3 Months or Most Recently Relevant to Health Maintenance Results * POCT Urine (01/22/2025 11:01 AM EDT) Preg Test, Ur Negative Negative, Indeterminate, None Detected, Invalid, Specimen unsatisfactory for evaluation, Weakly Positive, 2+ QC Media Lot # [id number] Lot# Expiration Date [id number] Urine 01/22/2025 11:0 1 AM EDT Marni Stout CNM POINT OF CARE TEST ENTER/ EDIT ORDERABLES Final Result * Hepatitis A,B,C Profile (12/30/2024 1:27 PM EDT) Hepatitis A IgM Nonreactive Nonreactive [facility] Comment:IgM antibodies to MOLINA V not detected; does not exclude earlyacute or recovered HAV infection. ~Hepatitis B Surface Antibody REACTIVE Nonreactive [facility] Comment:REACTIVE: > 11.99 mI U/mL Hepatitis B Core Antibody Nonreactive Nonreactive [facility] Hepatitis C Antibody Nonreactive Nonreactive [facility] Comment:Antibodies to HCV no t detected; does not exclude early acuteHCV infection. Hepatitis B Surface Ag Negative Negative [facility] Blood Venous blood specimen / Unknown 12/30/2024 1:27 PM EDT 12/30/2024 4:17 PM EDT Theo SOLIS LAB BLOOD ORDERABLES Final Resul t Performing Organization Address [facility] Co de Phone Number [facility] [facility] [address] [place] [phone] * Hepatitis C Antibody with Reflex to HCV, RNA, Quantitative, Real-Time PCR (12/30/2024 1:27 PM EDT) Hepatitis C Antibody Nonreactive Nonreactive [facility] Comment:Antibodies to HCV no t detected; does not exclude early acuteHCV infection. Blood Venous blood specimen / Unknown 12/30/2024 1:27 PM EDT 12/30/2024 4:17 PM EDT Kathrine Nakul ELLER LAB BLOOD ORDERABLES Final R esult Performing Organization Address [facility] Co de Phone Number [facility] [address] [place] [phone] * Hepatitis B surface antigen, EIA (12/30/2024 1:27 PM EDT) Hepatitis B Surface Ag Negative Negative [facility] Blood Venous blood specimen / Unknown 12/30/2024 1:27 PM EDT 12/30/2024 4:17 PM EDT Kathrine Nakul ELLER LAB BLOOD ORDERABLES Final R esult Performing Organization Address [facility] Co de Phone Number [facility] [address] [place] [phone] * RPR (Monitor) with Reflex to??Titer (12/30/2024 1:27 PM EDT) RPR (Monitor) w/Refl Titer NON-REACTI VE NON-REACT MENDOZA [facility] Comment:THIS TEST WAS PERFOR MED AT:[employer] [place] [phone] RODRIGEZ MD Rapid Plasma Reagin Ab Titer TNP [facility] Blood Venous blood specimen / Unknown 12/30/2024 1:27 PM EDT 12/30/2024 4:17 PM EDT Kathrine Mota DO LAB BLOOD ORDERABLES Final R esult Performing Organization Address City/[facility]/ZIP Co de Phone Number [facility] [address] [place] [phone] * HIV-1/2 Antigen and Antibodies, Fourth Generation, with Reflexes (12/30/2024 1:27 PM EDT) Pathologist [facility] HIV AB/AG Nonreactive Nonreactive [facility] Comment:HIV-1 p24 Ag and/or HIV-1/HIV-2 Ab not detected.A test result that is nonreactive does not exclude thepossibility of exposure to or infection with HIV-1 and/orHIV-2. Nonreactive results in this assay for individualswith prior exposure to HIV-1 and/or HIV-2 may be due toantigen and antibody levels that are below the limit ofdetection of this assay.[email or web address] HIV Ag/Ab Combo assay result andsupplemental assay results should be interpreted inconjunction with the patient's clinical presentation,history and other laboratory results. If the results areinconsistent with clinical evidence, additional testing issuggested to confirm the result. Blood Venous blood specimen / Unknown 12/30/2024 1:27 PM EDT 12/30/2024 4:17 PM EDT us Kathrine Mota DO LAB BLOOD ORDERABLES Final R esult Performing Organization Address City/[facility]/ZIP Co de Phone Number [facility] [address] [place] [phone] * Hepatitis B Surface Antibody, Qualitative (12/30/2024 1:27 PM EDT) ~Hepatitis B Surface Antibody REACTIVE Nonreactive [facility] Comment:REACTIVE: > 11.99 mI U/mL Blood Venous blood specimen / Unknown 12/30/2024 1:27 PM EDT 12/30/2024 4:17 PM EDT Kathrine Mota DO LAB BLOOD ORDERABLES Final R esult Performing Organization Address City/[facility]/ZIP Co de Phone Number [facility] [address] [place] [phone] * (ABNORMAL) CBC (12/30/2024 1:27 PM EDT) White Blood Count 5.7 4.8 - 10.8 X10*3/uL [facility] Red Blood Count 3.87(L) 4.20 - 5.50 X10*6/uL [facility] Hemoglobin 11.7(L) 12.0 - 16.0 g/dl [facility] Hematocrit 34.8(L) 37.0 - 47.0 % [facility] Mean Corpuscular Volume 89.9 80.0 - 98.0 fL [facility] Mean Corpuscular Hemoglobin 30.2 27.0 - 33.0 pg [facility] Mean Corpuscular HGB Conc 33.6 31.0 - 35.0 g/dl [facility] Red Cell Distribution Width 13.0 11.0 - 16.0 % [facility] Platelet Count 211 160 - 400 X10*3/uL [facility] Mean Platelet Volume 11.2 9.4 - 12.3 fL [facility] NRBC Pct Auto 0.0 0.0 - 0.2 /100WBC [facility] NRBC Abs Auto 0.000 0.0 - 0.012 X10*3/uL [facility] Blood Venous blood specimen / Unknown 12/30/2024 1:27 PM EDT 12/30/2024 4:17 PM EDT Kathrine Mota DO LAB BLOOD ORDERABLES Final R esult [facility] [address] [place] [phone] * (ABNORMAL) Hepatic Function Panel (12/30/2024 1:27 PM EDT) Only the most recent of3 resultswithin the time period is included. Bilirubin, Total 0.6 0.0 - 1.0 mg/dL [facility] Bilirubin, Direct 0.2 0.0 - 0.5 mg/dL [facility] Aspartate Amino Transferase 27 5 - 31 U/L [facility] Alanine Aminotransferase 56(H) 0 - 31 U/L [facility] Total Protein 6.9 6.5 - 8.0 g/dL [facility] Albumin Level 4.4 3.5 - 5.0 g/dL [facility] Alkaline Phosphatase 72 39 - 117 U/L [facility] Blood Venous blood specimen / Unknown 12/30/2024 1:27 PM EDT 12/30/2024 4:17 PM EDT us Kathrine Mota DO LAB BLOOD ORDERABLES Final R esult [facility] [address] [place] [phone] * Basic Metabolic Panel (12/30/2024 1:27 PM EDT) Only the most recent of3 resultswithin the time period is included. Sodium 140 135 - 145 mmol/L [facility] Potassium 3.5 3.3 - 5.1 mmol/L [facility] Chloride 104 96 - 108 mmol/L [facility] Carbon Dioxide 28 22 - 29 mmol/L [facility] Anion Gap 12 12 - 20 [facility] Urea Nitrogen (BUN) 12 9 - 16 mg/dL [facility] Creatinine, Serum 0.73 0.5 - 1.4 mg/dL [facility] Estimated Glomerular Filt Rate >60 [facility] Comment:Chronic Kidney Disea se: Estimated GFR < 60 mL/min/1.28l9Hdgonf Kidney Disease: Estimated GFR < 15 mL/min/1.73m2 Glucose 71 60 - 115 mg/dL [facility] Calcium 9.3 8.4 - 10.2 mg/dL [facility] Blood Venous blood specimen / Unknown 12/30/2024 1:27 PM EDT 12/30/2024 4:17 PM EDT us Kathrine Mota DO LAB BLOOD ORDERABLES Final R esult [facility] [address], [place] [phone] * (ABNORMAL) Comprehensive Metabolic Panel (12/26/2024 12:28 AM EDT) Sodium 138 135 - 145 mmol/L [facility] Potassium 3.5 3.3 - 5.1 mmol/L [facility] Chloride 103 96 - 108 mmol/L [facility] Carbon Dioxide 26 22 - 29 mmol/L [facility] Anion Gap 13 12 - 20 [facility] Urea Nitrogen (BUN) 15 9 - 16 mg/dL [facility] Creatinine, Serum 0.63 0.5 - 1.4 mg/dL [facility] Creatinine Clr Calc Pharmacy 107.7 [facility] Comment:Provided height and weight: 165.1 cm,55.3 kg.eGFR (calculated from the MDRD study equation) and eCrCl(calculated from the Cockcroft-Gault equation) are based ondifferent parameters and may not yield comparable results.If eCrCl result is absurd, please check patient'sheight/weight. Estimated Glomerular Filt Rate >60 [facility] Comment:Chronic Kidney Disea se: Estimated GFR < 60 mL/min/1.80z4Cahujf Kidney Disease: Estimated GFR < 15 mL/min/1.73m2 Glucose 102 60 - 115 mg/dL [facility] Calcium 8.5 8.4 - 10.2 mg/dL [facility] Bilirubin, Total 0.4 0.0 - 1.0 mg/dL [facility] Aspartate Amino Transferase 29 5 - 31 U/L [facility] Alanine Aminotransferase 62(H) 0 - 31 U/L [facility] Total Protein 6.2(L) 6.5 - 8.0 g/dL [facility] Albumin Level 4.0 3.5 - 5.0 g/dL [facility] Alkaline Phosphatase 67 39 - 117 U/L [facility] 12/26/2024 12:2 8 AM EDT 12/26/2024 12:30 AM EDT us Generic External Data Provider LAB BLOOD ORDERAB LES Final Result Performing Organization Address City/State/[facility] Co de Phone Number [facility] [address] [place] [address] [phone] * CT Abdomen Pelvis w/o Contrast (12/25/2024 10:04 PM EDT) Anatomical Region Laterality Modality Body, Pelvis, Abdomen Computed T omography 12/25/2024 10:0 4 PM EDT Narrative 12/25/2024 10:06 PM EDT [place] [address] CT Scan Report Signed Patient: Jeniffer Nagy MR#: [id number] : 1990 Acct:[id number] Age/Sex: 34 / F ADM Date: 12/25/24 Loc: .ED Attending Dr: Ordering Physician: Lionel Gasca MD Date of Service: 12/25/24 Procedure(s): CT abdomen pelvis wo IV con Accession Number(s): [id number] cc: Lionel Gasca MD; THEO GALVIN NP Report Number: [id number]: Total DLP = 310.00 mGy-cm CLINICAL HISTORY: Lower abdominal left CVA tenderness. CT abdomen and pelvis without contrast Comparison: None provided Findings: The lung bases are clear. Cholecystectomy. No biliary duct dilatation. Liver, pancreas, spleen, and adrenal glands are within normal limits. No hydronephrosis or urolithiasis. No bowel obstruction, pneumoperitoneum, or pneumatosis. Postsurgical changes in the right lower quadrant. Pelvic organs are within normal limits. Small amount of free fluid in the pelvis, favored to be physiologic. No acute fracture. IMPRESSION: 1. No acute intraabdominal or pelvic pathology. This document has been electronically signed by: Delilah Moore MD on 12/25/2024 22:04:26 Dictated By: Delilah Moore MD Signed By: <Electronically signed by Delilah Moore MD in OV> 12/25/242205 DD/ 03 TD/TT: 12/25/242203 Level Vial Inspector: Procedure Note Donotuseinterpreter, Image - 12/25/[address] [place] [address] [address] Scan Report Signed Patient: Jeniffer Nagy LMR#: [id number] : 1990Acct:[id number] Age/Sex: 34 / FADM Date: 12/25/24 Loc: HO.ED Attending Dr: Ordering Physician: Lionel Gasca MD Date of Service: 12/25/24 Procedure(s): CT abdomen pelvis wo IV con Accession Number(s): [id number] cc: Lionel Gasca MD; THEO GALVIN NP Report Number: [id number]: Total DLP = 310.00 mGy-cm CLINICAL HISTORY: Lower abdominal left CVA tenderness. CT abdomen and pelvis without contrast Comparison: None provided Findings: The lung bases are clear. Cholecystectomy. No biliary duct dilatation. Liver, pancreas, spleen, and adrenal glands are within normal limits. No hydronephrosis or urolithiasis. No bowel obstruction, pneumoperitoneum, or pneumatosis. Postsurgical changes in the right lower quadrant. Pelvic organs are within normal limits. Small amount of free fluid in the pelvis, favored to be physiologic. No acute fracture. IMPRESSION: 1. No acute intraabdominal or pelvic pathology. This document has been electronically signed by: Delilah Moore MD on 12/25/2024 22:04:26 Dictated By: Delilah Moore MD Signed By: <Electronically signed by Delilah Moore MD in OV> 12/25/242205 DD/ 03 TD/TT: 12/25/242203 Level Vial Inspector: [facility] External Provider IMG CT PROCEDURES Edited Result - Final * Culture, Urine, Routine (12/25/2024 4:30 PM EDT) Urine Urine specimen obtained by clean catch procedure / Unknown 12/25/2024 4:30 PM EDT 12/25/2024 4:30 PM EDT Comment:UACC Narrative [facility] - 12/27/2024 11:45 AM EDT Urine Culture No growth. Specimen Source: Urine clean catch Generic External Data Provider LAB MICROBIOLOGY - GENERAL ORDERABLES Final Result [facility] [address] [place] [phone] * (ABNORMAL) Urinalysis, Complete, with Reflex to Culture (12/25/2024 4:05 PM EDT) Color Urine Dark Yellow [facility] Appearance Urine Clear [facility] PH 6.5 5.0 - 9.0 [facility] Glucose Urine UA Negative Negative mg/dL [facility] Urine Blood Negative Negative [facility] Specific [place] - Urine >=1.030(H) 1.005 - 1.025 [facility] Urine Protein 30 (1+)(A) Neg-Trace mg/dL [facility] Urine Ketones 40 Negative mg/dL [facility] Nitrite Urine Negative Negative [facility] Leukocyte Esterase Urine Small (1+)(A) Negative [facility] RBC Urine 0-2 0 - 2 /HPF [facility] Urine WBC 11-20(A) 0 - 5 /HPF [facility] Urine Squamous Epithelial Cell 6-10 0 - 2 /HPF [facility] Urine Bacteria 2+ None Seen [facility] Hyaline Casts, Urine 0-2 0 - 2 /LPF [facility] 12/25/2024 4:05 PM EDT 12/25/2024 4:10 PM EDT Narrative [facility] - 12/25/2024 4:30 PM EDT [id number], Clean Catch us Generic External Data Provider LAB URINE ORDERAB LES Final Result [facility] [address] [place] [address] [phone] * (ABNORMAL) CBC auto differential (12/25/2024 4:05 PM EDT) White Blood Count 5.8 4.8 - 10.8 X10*3/uL [facility] Red Blood Count 3.99(L) 4.20 - 5.50 X10*6/uL [facility] Hemoglobin 12.3 12.0 - 16.0 g/dl [facility] Hematocrit 35.0(L) 37.0 - 47.0 % [facility] Mean Corpuscular Volume 87.7 80.0 - 98.0 fL [facility] Mean Corpuscular Hemoglobin 30.8 27.0 - 33.0 pg [facility] Mean Corpuscular HGB Conc 35.1(H) 31.0 - 35.0 g/dl [facility] Red Cell Distribution Width 13.0 11.0 - 16.0 % [facility] Platelet Count 165 160 - 400 X10*3/uL [facility] Mean Platelet Volume 10.6 9.4 - 12.3 fL [facility] Neutrophils Percent Auto 74.5(H) 45 - 73 % [facility] Imm Gran Pct Auto 0.3 0.0 - 0.4 % [facility] Lymphocytes Percent Auto 17.6(L) 20 - 40 % [facility] Monocytes Percent Auto 6.6 2 - 11 % [facility] Eosinophils Percent Auto 0.7 0 - 4 % [facility] Basophils Percent Auto 0.3 0 - 2 % [facility] NRBC Pct Auto 0.0 0.0 - 0.2 /100WBC [facility] Neutrophils Absolute Auto 4.3 2.0 - 8.3 x10*3/uL [facility] Imm Gran Abs Auto 0.02 0.00 - 0.03 X10*3/uL [facility] Lymphocytes Absolute Auto 1.0(L) 1.2 - 4.9 X10*3/uL [facility] Monocytes Absolute Auto 0.4 0.1 - 1.2 X10*3/uL [facility] Eosinophils Absolute Auto 0.0 0.0 - 0.4 X10*3/uL [facility] Basophils Absolute Auto 0.0 0.0 - 0.2 X10*3/uL [facility] NRBC Abs Auto 0.000 0.0 - 0.012 X10*3/uL [facility] 12/25/2024 4:05 PM EDT 12/25/2024 4:10 PM EDT us Generic External Data Provider LAB BLOOD ORDERAB LES Final Result [facility] [address] [place] [phone] [phone] * hCG, Total, Quantitative (12/25/2024 4:05 PM EDT) HCG Quantitative <2 mIU/mL [facility] Comment:Weeks post LMP Appro ximate hCG(Last Menstrual Period) Range (mIU/ml)3 - 4 weeks 9 - 1304 - 5 weeks 75 - 2,6005 - 6 weeks 850 - 20,8006 - 7 weeks 4000 - 100,2007 - 12 weeks 11,500 - 289,91633 - 16 weeks 18,300 - 137,17599 - 29 weeks (2nd trimester) 1,400 - 53,38054 - 41 weeks (3rd trimester) 940 - 60,000The [employer] B- hCG assay is used for the early detection ofpregnancy; it cannot be used to diagnose any conditionunrelated to . If a B-hCG level is not supportedby the clinical evidence, results should be confirmed by analternative method (qualitative urine hCG, for example). 12/25/2024 4:05 PM EDT 12/25/2024 4:10 PM EDT Generic External Data Provider LAB BLOOD ORDERAB LES Final Result Performing Organization Address [facility] Co de Phone Number [facility] [address] [place] [phone] * Lipase (12/25/2024 4:05 PM EDT) Lipase 15 8 - 78 U/L [facility] 12/25/2024 4:05 PM EDT 12/25/2024 4:10 PM EDT [facility] External Data Provider LAB BLOOD ORDERAB LES Final Result Performing Organization Address [facility] Phone Number [facility] [address] [place] [phone] * (ABNORMAL) POCT Urinalysis (12/25/2024 1:11 PM EDT) Color, UA [place] Clarity, UA Clear Glucose, UA Negative Bilirubin, UA Moderate Ketones, UA Positive Spec Grav, UA 1.030 Blood, UA Positive(A) Negative, None Detected pH, UA 6.5 Protein, UA 1+ 70+ Urobilinogen, UA 0.2 Leukocytes, UA Negative Negative, Rare, Trace Nitrite, UA Negative Negative, None Detected Appearance, UA clear QC Media Lot # [id number] Lot# Expiration Date [id number] Urine 12/25/2024 1:11 PM EDT Theo Galvin [facility]INT OF CARE TEST ENTER/EDIT OR DERABLES Final Result * US Pelvis Transvaginal (11/14/2024 1:00 PM EDT) Anatomical Region Laterality Modality Pelvis Ultrasound 11/14/2024 1:00 PM EDT Narrative 11/14/2024 1:02 PM EDT [facility] [place] [address] Ultrasound Report Signed Patient: Jeniffer Nagy MR#: [id number] : 1990 Acct:[id number] Age/Sex: 34 / F ADM Date: 11/13/24 Loc: HO.HMGCX Attending Dr: Kathrine Mota DO Ordering Physician: Kathrine Mota DO Date of Service: 11/13/24 Procedure(s): US pelvic and transvaginal Accession Number(s): [id number] cc: Kathrine Mota DO CLINICAL HISTORY: prolonged heavy menses US pelvis transabdominal and transvaginal with color Doppler Comparison: None Findings: Transabdominal scanning performed for overall anatomy. Transvaginal scanning performed for additional detail. LMP: 1 month ago Retroflexed/retroverted uterus, normal size and echotexture, measuring 7.4 x 4.8 x 6.2 cm. Well defined endometrium, measuring 6.3 mm in thickness. The right ovary measures, 4.8 x 2.7 x 3.0 cm. Anechoic cyst measuring 3.1 x 1.9 x 2.6 cm. The left ovary measures, 4.5 x 2.0 x 1.9 cm. Normal sonographic appearance left ovary. No adnexal masses or fluid collections. Mild prominence of the vessels in the left adnexa. Moderate free fluid Impression: 1. Retroflexed/retroverted uterus with normal thickness endometrium. 2. Suspect functional cyst right ovary. Normal sonographic appearance left ovary. No adnexal masses or fluid collections. 3. Moderate free fluid in the cul-de-sac 4. Equivocal pelvic venous congestion syndrome clinical correlation This document has been electronically signed by: Alan Chi MD on 11/14/2024 13:00:59 Dictated By: Alan Chi MD Signed By: <Electronically signed by Alan Chi MD in OV> 11/14/24 1302 DD/ 1300 TD/TT: 11/14/24 1300 Level Vial Inspector: Procedure Note Donotuseinterpreter, Image - 11/14/2024 [facility] [address] [place], [place] [address] Ultrasound Report Signed Patient: Jeniffer Nagy LMR#: [id number] : 1990Acct:[id number] Age/Sex: 34 / FADM Date: 11/13/24 Loc: HO.HMGCX Attending Dr: Kathrine Mota DO Ordering Physician: Kathrine Mota DO Date of Service: 11/13/24 Procedure(s): US pelvic and transvaginal Accession Number(s): [id number] cc: Kathrine Mota DO CLINICAL HISTORY: prolonged heavy menses US pelvis transabdominal and transvaginal with color Doppler Comparison: None Findings: Transabdominal scanning performed for overall anatomy. Transvaginal scanning performed for additional detail. LMP: 1 month ago Retroflexed/retroverted uterus, normal size and echotexture, measuring 7.4 x 4.8 x 6.2 cm. Well defined endometrium, measuring 6.3 mm in thickness. The right ovary measures, 4.8 x 2.7 x 3.0 cm. Anechoic cyst measuring 3.1 x 1.9 x 2.6 cm. The left ovary measures, 4.5 x 2.0 x 1.9 cm. Normal sonographic appearance left ovary. No adnexal masses or fluid collections. Mild prominence of the vessels in the left adnexa. Moderate free fluid Impression: 1. Retroflexed/retroverted uterus with normal thickness endometrium. 2. Suspect functional cyst right ovary. Normal sonographic appearance left ovary. No adnexal masses or fluid collections. 3. Moderate free fluid in the cul-de-sac 4. Equivocal pelvic venous congestion syndrome clinical correlation This document has been electronically signed by: Alan Chi MD on 11/14/2024 13:00:59 Dictated By: Alan Chi MD Signed By: <Electronically signed by Alan Chi MD in OV> 11/14/24 1302 DD/ 1300 TD/TT: 11/14/24 1300 Level Vial Inspector: Kathrine Mota DO IMG US PROCEDURES Edited Res ult - Final * Pap Smear (12/21/2023 12:00 AM EDT) Swab Historical Provider MD LAB CYTOLOGY ORDERABLES F inal Result [facility] [address] [place] [address] * Thinprep TIS PAP And HPV mRNA E6/E7 With Reflex To HPV 16,18/45 (04/12/2022 9:20 AM EST) Clinical Information: None given [employer] [facility] LMP: NONE GIVEN [employer] [facility] Prev. PAP: NONE GIVEN [facility] Prev. BX: NONE GIVEN [employer] [facility] SOURCE: None given [facility] Statement Of Adequacy: [employer] Comment: Satisfactory for evaluation. Endocervical/transformation zone component present. Age and/or menstrual status not provided Interpretation/ Result: Negative for intraepithelial lesion or malignancy. [employer] COMMENT: This Pap test has been evaluated with computer assisted technology. [employer] Cytotechnologis t: Ceont Comment: SL, CT(ASCP) CT screening location: [place] [address] Review Cytotechnologis t: [facility] Comment: WAC, CT(ASCP) CT screening location: [place] [address] (Always Message) [facility] Comment: EXPLANATORY NOTE: The Pap is a [...] HPV nRNA E6/E7 Not Detected Not Detected [employer] Comment: Methodology: Return Checker-Mediated Amplification This assay detects E6/E7 viral messenger RNA (mRNA) from 14 high-risk HPV types (16,18,31,33,35,39,45,51,52,56,58,59,66,68). Cervical sources are required for HPV testing. If a vaginal source from a patient who has had a total hysterectomy with removal of cervix was submitted, please contact the testing laboratory for alternative testing options. For additional information, please refer to http://education.GazeHawk/faq/ZWN369p1 (This link if provided for information/ educational purposes only.) 04/12/2022 9:20 AM EST 04/13/2022 8:41 AM EST Marni Stout CNM LAB PATHOLOGY ORDERABLES Final Result [facility] [address], [place] [address] [facility] [address], [facility] [place] [address] from Last 3 Months or Most Recently Relevant to Health Maintenance Insurance [facility] C3 Care Teams Marine Electrician Helper Relationship Specialty Start Date End Date Kathrine Mota DO [address] [place] [address] PCP - General Family Medicine 05/14/18 Fadumo Belle 11/06/24
--- OUTSIDE RECORDS SUMMARY | 2025-01-22 18:58 | XMS_ITS | Clinical Summary ---
Author Organization [facility] Address [address] [place] [address] Phone Care Team Providers Care Ballast Cleaning Machine Operator Name Role Phone WillisKathrine thomason Primary Care Provider [phone] Allergies Active Allergy Reactions Criticality Noted Date Comments Azithromycin High 08/21/2016 Other reaction(s): hives, swelling Etonogestrel Rash Low 03/27/2019 Other reaction(s): Rash Penicillins Hives 06/12/2024 Medications No known medications Surgical History Surgery Date Site/Laterality Comments OTHER SURGICAL HISTORY 11/15 PROCEDURE: [place] DILATION & CURETTAGE DX&/THER NONOBSTETRIC; COMMENT: elective TOP TONSILLECTOMY 07/18 PROCEDURE: HISTORICAL TONSILLECTOMY OVARIAN CYST REMOVAL PROCEDURE: [place] OVARIAN CYSTECTOMY UNI/BI Medical History Medical History [...] 05/31/2006 Cervical Cancer Screening: Pap Smear 2009 Social Influencers of Health Screening 03/07/2024 Depression Screening 05/14/2024 COVID-19 Vaccine ( season) 2025 02/22/2021, 02/01/2021 Influenza Vaccine (#1) 2025 , 05/20/2021, 02/19/2017, [...] topic Insurance MEDICAID - [place] Care Teams Ballast Cleaning Machine Operator Relationship Specialty Start Date End Date Kathrine Mota DO [address] [place] [address] PCP - General Internal Medicine 10/29/12
--- OUTSIDE RECORDS SUMMARY | 2025-01-22 18:58 | XMS_ITS | Encounter Summary ---
Author Organization [employer] Address [address] [place] [address] 7t [place] [address] Care Team Providers Care Baseball Scout Name Role Phone Kathrine Mota DO Primary Care Provider Rossi Herzog Unavailable Fadumo Belle Unavailable Encounter Details Date Type Department Care Team (Late st Contact Info) Description 02/14/2023 Abstract [facility] [address] [place] [address] Kathrine Mota DO [address] [place] [address] Social History Tobacco Use Types Packs/Day Years [...] Procedure Name Priority Date/Time Associated Diagnosis Comments PAP/HPV Routine 05/12/2020 documented in this encounter Results * Hm Pap Smear (05/12/2020) Pap Negative for intraephithelial lesion or malignancy Negative for intraephithelial lesion or malignancy, Other HPV Undetected Historical Provider HEALTH MAINTENANCE Edited Result - Final documented in this encounter Visit Diagnoses Not on filedocumented in this encounter Care Teams Baseball Scout Relationship Specialty Start Date End Date Kathrine Mota DO [address] [place] [address] PCP - General Family Medicine 05/14/18 Rossi Herzog 10/27/24 11/06/24 Fadumo Belle 11/06/24 documented as of this encounter
[2025-01-22 20:41] LABS: Bacterial Vaginosis PCR POSITIVE (Negative); Candida Group PCR DETECTED (Not Detect); Candida glab krusei PCR NOT DETECTED (Not Detect); Trichomonas vaginalis PCR NOT DETECTED (Not Detect)
[2025-01-22 21:34] LABS: CT PCR NOT DETECTED (Not Detect.); NG PCR NOT DETECTED (Not Detect.)
== END 2025-01-22 16:37 | disposition home or self-care (01) ==
LOC: HO.HHCLNP 16:36
PROVIDERS: PCP Family Medicine; Visit Provider Advanced Practice Midwife
DX: R59.0 Localized enlarged lymph nodes (principal); Z11.3 Encounter for screening for infections with a predominantly sexual mode of transmission; Z11.8 Encounter for screening for other infectious and parasitic diseases
CPT/HCPCS: 81515; 87491; 87591

== ENCOUNTER 2025-02-02 10:09 | Outpatient (REF) | payer MEDICAID, SELFPAY ==
[2025-02-02 12:10] LABS: Alanine Aminotransferase 29 U/L (0-31); Albumin Level 4.2 g/dL (3.5-5.0); Alkaline Phosphatase 70 U/L (39-117); Aspartate Amino Transferase 22 U/L (5-31); Total Protein 6.9 g/dL (6.5-8.0)
--- OUTSIDE RECORDS SUMMARY | 2025-02-02 12:30 | XMS_ITS | Encounter Summary ---
Author Organization [employer] Address [address] [place] [address] 7 [place] [address] Care Team Providers Care Fruit Bar Maker Name Role Phone Kathrine Mota DO Primary Care Provider [phone] Rossi Herzog Unavailable Fadumo Belle Unavailable Encounter Details Date Type Department Care Team ([facility] st Contact Info) Description 01/16/2023 Orders Only [facility] [address] [place] [address] Kathrine Alexander LPN Social History Tobacco Use [...] on filedocumented in this encounter Care Teams Fruit Bar Maker Relationship Specialty Start Date End Date Kathrine Mota DO [address] [place] [address] PCP - General Family Medicine 05/14/18 Rossi Herzog 10/27/24 11/06/24 Fadumo Belle 11/06/24 documented as of this encounter
--- OUTSIDE RECORDS SUMMARY | 2025-02-02 12:30 | XMS_ITS | Encounter Summary ---
Author Organization [employer] Address [address] [place] [address] 7 [place] [address] Care Team Providers Care Oil Field Worker Name Role Phone Kathrine Mota DO Primary Care Provider Fadumo Belle Unavailable Encounter Details Date Type Department Care Team ([facility] st Contact Info) Description 01/23/2025 Results Follow-Up [facility] [address] [place], [place] [phone] Marni Stout CNM [address] [place] [address] Bacterial Vaginosis Social History Tobacco Use Types Packs/Day Years [...] with others, in a hotel, in a fci, living outside on the street, on a [...] documented as of this encounter Care Teams Oil Field Worker Relationship Specialty Start Date End Date Kathrine Mota DO [address] [place] [phone] PCP - General Family Medicine 05/14/18 Fadumo Belle 11/06/24 documented as of this encounter
--- OUTSIDE RECORDS SUMMARY | 2025-02-02 12:30 | XMS_ITS | Encounter Summary ---
Author Organization [employer] Address [address] [place] [address] 7 [place] [address] Care Team Providers Care Medical Sales Specialist Name Role Phone Kathrine Mota DO Primary Care Provider Fadumo Belle Reason for Visit * Reason Comments Care Coordination C3CM/ANDREW Olivia#3- Follow up call LVM Encounter Details Date Type Department Care Team (Latest Contact Info) Description 01/29/2025 Patient Outreach [facility]INE [address] [place] [address] Kathrine Mota DO [address] [place], [place] [phone] Care Coordination (C3CM/ANDREW Waters#3- Follow up call LVM) Social History Tobacco Use Types Packs/Day Years [...] with others, in a hotel, in a custodial, living outside on the street, on a [...] AM EDT documented as of this encounter Progress Notes * Fadumo Belle - 01/29/2025 4:44 PM EDT CHW Fadumo Belle placed outbound call to patient / guardian for follow up call. No answer at this time. LVM introducing self from [facility] CM Department. Requested call back. CHW reinforced direct contact information for any additional questions or concerns and extended clinic hours on Mondays and Wednesdays, and Walk-In Urgent Care Located in [facility]. Jocewahemalatha provided with after-hours line for [facility], , which offer night time triage service andoption to transfer to regional guide provider if needed. CHW will attempt another follow up call within 10days. documented in this encounter Plan of Treatment Not on file documented as of this encounter Visit Diagnoses Not on filedocumented in this encounter Additional Health Concerns Assessment Noted Time PHQ-9 Depression Total Score: 17 11/26/ 025 4:14 PM EDT documented as of this encounter Care Teams Medical Sales Specialist Relationship Specialty Start Date End Date Kathrine Mota DO [address] [place] [address] PCP - General Family Medicine 05/14/18 Fadumo Belle 11/06/24 documented as of this encounter
--- OUTSIDE RECORDS SUMMARY | 2025-02-02 12:30 | XMS_ITS | Encounter Summary ---
Author Organization [employer] Address [address] [place] [address] 7 [place] [address] Care Team Providers Care Filler Shredder Name Role Phone NakulKathrine Primary Care Provider [phone] Fadumo Belle Unavailable Encounter Details Date Type Department Care Team ([facility] st Contact Info) Description 12/25/2024 Results Follow-Up [facility] [address] [place], [place] [phone] Юлия Ravi ANP [address] [place] [address] CBC auto differential, Urinalysis, Complete, with Reflex [...] with others, in a hotel, in a snf, living outside on the street, on a [...] documented as of this encounter Care Teams Filler Shredder Relationship Specialty Start Date End Date Kathrine Mota DO [address] [place] [phone] PCP - General Family Medicine 05/14/18 Fadumo Belle 11/06/24 documented as of this encounter
--- OUTSIDE RECORDS SUMMARY | 2025-02-02 12:30 | XMS_ITS | Clinical Summary ---
Author Organization [employer] Address [address] [place] [address] [address] [place] [address] Care Team Providers Care Door To Door Salesperson Name Role Phone Aylin Motafer Primary Care Provider [phone] Fadumo Belle Unavailable Allergies Active Allergy Reactions [...] shoulder, thigh, or buttocks. 02/02/20 21 Active Nutritional Supplements (Boost High Protein) liquid Take 1 Bottle by mouth 2 times daily. 79024 mL 11 10/17/19 25 026 Active mirtazapine [...] days 21 tablet 01/23/20 25 025 Active cetirizine (ZyrTEC) 10 MG tabletIndicati ons:Seasonal allergic rhinitis, unspecified trigger TAKE 1 TABLET BY MOUTH EVERY DAY 90 tablet 1 01/30/20 25 Active cetirizine (ZyrTEC) 10 MG tabletIndicati ons:Seasonal allergic rhinitis, unspecified trigger Take 1 tablet by mouth every day 90 tablet 1 08/02/19 25 025 Discontinued polycarbophil (Fibercon) 625 MG tablet Take 1 tablet (625 mg) by mouth 2 times daily. 180 tablet 3 12/31/19 25 025 Discontinued(Re order (will not trigger notification to Pharmacy)) Saccharomyces boulardii (probiotic) 250 MG capsule Take 1 capsule (250 mg) by mouth Once per day. 30 capsule 3 12/31/19 25 025 Discontinued(Re order (will not trigger notification to Pharmacy)) metroNIDAZOLE (Flagyl) 500 MG tablet Take 1 tablet (500 mg) by mouth 2 times daily for 7 days. 14 tablet 01/24/20 25 025 terconazole (Terazol 7) 0.4 % vaginal cream Insert 1 applicator into the vagina at bedtime for 7 days. 45 g 01/24/20 25 025 Active Problems Problem Noted Date Diagnosed Date [...] an issue that others in her [place] are also worry about. Jeniffer feels motivated and ready to take the next steps as part of self-care. She prefers in-person sessions and was self-referred to OP therapy with [facility] where she will also start medication management [...] an issue that others in her [place] are also worry about. Jeniffer feels motivated and ready to take the next steps as part of self-care. She prefers in-person sessions and was self-referred to OP therapy with [facility] where she will also start medication management [...] an issue that others in her [place] are also worry about. Jeniffer feels motivated and ready to take the next steps as part of self-care. She prefers in-person sessions and was self-referred to OP therapy with [facility] where she will also start medication management [...] organization. Date Type Department Care Team Description 01/29/2025 Patient Outreach [facility] [address] [place] [phone] Kathrine Mota DO Care Coordination ([facility]/W ANDREW Sahu#3- Follow up call LV) 01/29/2025 Refill [facility] [address] [place] [phone] Kathrine Mota DO Seasonal allergic rhinitis, unspecified trigger 01/23/2025 Orders Only [facility] [address] [place] [address] Marni Stout CNM 01/23/2025 Results Follow-Up [address] [address] Marni Stout CNM Bacterial Vaginosis 01/22/2025 11:00 AM EDT Office Visit [facility] [address] [place] [phone] Marni Stout CNM Lower abdominal pain (Primary Dx); Screening examination for venereal disease; Lymphadenopathy, inguinal 01/22/2025 Orders Only [address] [address] Marni Stout CNM 01/22/2025 Travel 01/22/[address] [address] Kathrine Mota DO Nurse Triage 01/16/2025 9:15 AM EDT Telemedicine [address] [address] Kathrine Mota DO 01/16/2025 Travel 01/15/2025 Patient Outreach [address] [address] Kathrine Mota DO Care Coordination ([facility]/ANDREW Waters#2- Follow up call-LVM) 01/09/2025 Travel 01/07/[address] [address] Kathrine Mota DO Chart Prep 12/31/2024 Results Follow-Up [facility] [address] [place] [address] Theo Galvin ANP Hepatic Function Panel, Hepatitis A,B,C Profile 12/30/2024 12:00 PM EDT Office Visit [address] [address] Kathrine Mota DO Hypokalemia (Primary Dx); Complicated UTI (urinary tract infection); Alternating constipation and diarrhea; Pelvic congestion syndrome 12/30/2024 Patient Outreach [address] [address] Kathrine Mota DO Care Coordination ([facility]/ANDREW Waters#1- Follow up call-LVM) 12/30/2024 Travel 12/29/2024 Patient Outreach [address] [address] Kathrine Mota DO 12/29/[address] [address] Kathrine Mota DO Chart Prep 12/26/2024 Orders Only GENERIC EXTERNAL DATA DEPARTMENT Provider, Generic External Data 12/25/2024 1:15 PM EDT Office Visit [address] [address] Theo Galvin ANP Generalized abdominal pain (Primary Dx); Lower abdominal pain; Bilirubin in urine 12/25/2024 Results Follow-Up [address] [address] Theo Galvin ANP CBC auto differential, Urinalysis, Complete, with Reflex to Culture, Hepatic Function Panel, Additional followed-up results: 2 12/25/2024 Orders Only GENERIC EXTERNAL DATA DEPARTMENT Provider, Generic External Data 12/25/[address] [address] Theo Galvin ANP ED expect 12/25/2024 Travel 12/25/[address] [address] Kathrine Mota DO Nurse Triage 12/24/2024 Refill [facility] [address] [place] [phone] Neftaly Lee MD 12/16/2024 Patient Outreach [address] [address] Kathrine Mota DO Care Coordination ([facility]ANDREW Waters- Follow up call) 12/10/2024 Orders Only [address] [address] Kathrine Mota DO Abnormal uterine bleeding (Primary Dx) 12/05/2024 Patient Outreach [address] [address] Kathrine Mota DO Care Coordination ([facility]ANDREW Waters#1- Follow up LVM) 11/28/2024 Patient Outreach [address] [address] Kathrine Mota DO 11/27/2024 Patient Outreach [address] [address] Kathrine Mota DO Care Coordination ([facility]/ANDREW Waters- Follow up call) 11/26/2024 5:00 PM EDT Office Visit [facility] WALK-IN [address] [address] Neftaly Lee MD Moderate episode of recurrent major depressive disorder (CMS/HCC) (Primary Dx); Severe anxiety; Insomnia, unspecified type 11/26/[address] [address] Kathrine Mota DO 11/26/2024 Travel 11/26/[address] [address] Kathrine Mota DO Nurse Triage 11/17/[address] [address] Kathrine Mota DO Results 11/12/2024 Patient Outreach [address] [address] Kathrine Mota DO Care Coordination ([facility]/ANDREW Watson#1- Missed appt with [facility] for housing search-LVM) 11/10/2024 Patient Outreach [address] [address] Kathrine Mota DO Care Coordination ([facility]/ANDREW Waters- Follow up call) 11/10/[address] [address] Kathrine Mota DO Care Management ([facility] Graduation) 11/06/2024 Patient Outreach [address] [address] Kathrine Mota DO Care Coordination ([facility]/CEE Belle, In person meet) 11/06/2024 Patient Outreach [address] [address] Kathrine Mota DO from Last 3 Months [...] with others, in a hotel, in a jail, living outside on the street, on a [...] the past 12 months, has t he Rece[employer], gas, oil or water company threatened to [...] Completed 03/20/2013, 07/24/1990 IPV Vaccines Completed 03/20/2013, 07/0 05/1993, 01/02/1991, Additional history exists HIV Screening [...] Procedure Name Priority Date/Time Associated Diagnosis Comments HEPATIC FUNCTION PANEL Routine 10:28 AM EDT Elevated liver enzymes BACTERIAL VAGINOSIS PANEL Routine 01/22/2025 11:20 AM EDT CHLAMYDIA/N. GONORRHOEAE RNA, TMA, UROGENITAL Routine 01/22/2025 11:20 AM EDT Screening examination for venereal disease POCT , URINE Routine 01/22/2025 11:01 AM [...] Recently Relevant to Health Maintenance Results * Hepatic Function Panel (02/02/2025 10:28 AM EDT) Only the most recent of4 resultswithin the time period is included. Bilirubin, Total 0.5 0.0 - 1.0 mg/dL [facility] Bilirubin, Direct 0.2 0.0 - 0.5 mg/dL [facility] Aspartate Amino Transferase 22 5 - 31 U/L [facility] Alanine Aminotransferase 29 0 - 31 U/L [facility] Total Protein 6.9 6.5 - 8.0 g/dL [facility] Albumin Level 4.2 3.5 - 5.0 g/dL [facility] Alkaline Phosphatase 70 39 - 117 U/L [facility] Blood Venous blood specimen / Unknown 02/02/2025 10:28 AM EDT 02/02/2025 11:31 AM EDT Kathrine Mota DO LAB BLOOD ORDERABLES Final R esult [facility] [address] [place] [phone] * (ABNORMAL) Bacterial Vaginosis (01/22/2025 11:20 AM EDT) Pathologist [facility] TRICHOMONAS VAGINALIS DETECTION BY PCR NOT DETECTED Not Detect [facility] BACTERIAL VAGINOSIS DETECTION BY PCR POSITIVE(A) Negative [facility] Comment:The BV organism targ ets of the Xpert Xpress MVP test can becommensal in women; Xpert Xpress MVP positive results forbacterial vaginosis should be considered in conjunction withother clinical and patient information to determine thedisease status. Organisms that are not detected by the XpertXpress MVP test have also been reported to be associatedwith BV and aerobic vaginitis.The Xpert Xpress MVP test performance has not been evaluatedin patients under the age of 14. MARILU GROUP DETECTION BY PCR DETECTED(A) Not Detect [facility] Marilu glab krusei PCR NOT DETECTED Not Detect [facility] 01/22/2025 11:2 0 AM EDT 01/22/2025 4:31 PM EDT Marni Stout [facility] LAB MICROBIOLOGY - GENERA L ORDERABLES Final Result [facility] [address] [place] [phone] [phone] * Chlamydia/N. Gonorrhoeae RNA, TMA, Vagina (01/22/2025 11:20 AM EDT) CT PCR NOT DETECTED Not Detect. [facility] Comment:A not detected test result does not exclude the possibilityof infection because test results can be affected byimproper specimen collection, concurrent antibiotic therapy,or the number of organisms in the specimen which may bebelow the sensitivity of the test. As with many diagnostictests, results from the Xpert CT/NG assay should beinterpreted in conjunction with other laboratory andclinical data available to the clinician.Xpert CT/NG performance has not been evaluated in patientsless than 14 years of age. The assay should not be used forthe evaluationof suspected sexual abuse or for other medico-legalindications. Additional testing is recommended in anycircumstance when false positive or false negative resultscould lead to adverse medical, social or psychologicalconsequences. NG PCR NOT DETECTED Not Detect. [facility] Comment:A not detected test result does not exclude the possibilityof infection because test results can be affected byimproper specimen collection, concurrent antibiotic therapy,or the number of organisms in the specimen which may bebelow the sensitivity of the test. As with many diagnostictests, results from the Xpert CT/NG assay should beinterpreted in conjunction with other laboratory andclinical data available to the clinician.Xpert CT/NG performance has not been evaluated in patientsless than 14 years of age. The assay should not be used forthe evaluationof suspected sexual abuse or for other medico-legalindications. Additional testing is recommended in anycircumstance when false positive or false negative resultscould lead to adverse medical, social or psychologicalconsequences. Swab Vaginal structure / Unknown 01/22/2025 11:20 AM EDT 01/22/2025 4:31 PM EDT Marni GRIGGS LAB MICROBIOLOGY - GENERA L ORDERABLES Final Result Performing Organization Address [facility]/ZIP Co de Phone Number [facility] [address] [place] [phone] * POCT Urine (01/22/2025 11:01 AM EDT) Preg Test, Ur Negative Negative, Indeterminate, None Detected, Invalid, Specimen unsatisfactory for evaluation, Weakly Positive, 2+ QC Media Lot # [id number] Lot# Expiration Date [id number] Urine 01/22/2025 11:0 1 AM EDT Marni GRIGGS POINT OF CARE TEST ENTER/ EDIT ORDERABLES Final Result * Hepatitis A,B,C Profile (12/30/2024 1:27 PM EDT) Pathologist [facility] Hepatitis A IgM Nonreactive Nonreactive [facility] Comment:IgM antibodies to MOLINA V not detected; does not exclude earlyacute or recovered HAV infection. ~Hepatitis B Surface Antibody REACTIVE Nonreactive [facility] Comment:REACTIVE: > 11.99 mI U/mL Hepatitis B Core Antibody Nonreactive Nonreactive [facility] Hepatitis C Antibody Nonreactive Nonreactive [facility] Comment:Antibodies to HCV no t detected; does not exclude early acuteHCV infection. Hepatitis B Surface Ag Negative Negative [facility] Blood Venous blood specimen / Unknown 12/30/2024 1:27 PM EDT 12/30/2024 4:17 PM EDT Theo SOLIS LAB BLOOD ORDERABLES Final Resul t Performing Organization Address [facility]/ZIP Co de Phone Number [facility] [address] [place] [phone] [phone] * Hepatitis C Antibody with Reflex to HCV, RNA, Quantitative, Real-Time PCR (12/30/2024 1:27 PM EDT) Pathologist [facility] Hepatitis C Antibody Nonreactive Nonreactive [facility] Comment:Antibodies to HCV no t detected; does not exclude early acuteHCV infection. Blood Venous blood specimen / Unknown 12/30/2024 1:27 PM EDT 12/30/2024 4:17 PM EDT Kathrine Mota DO LAB BLOOD ORDERABLES Final R esult Performing Organization Address City/[facility] Co de Phone Number [facility] [address] [place] [phone] * Hepatitis B surface antigen, EIA (12/30/2024 1:27 PM EDT) Pathologist [facility] Hepatitis B Surface Ag Negative Negative [facility] Blood Venous blood specimen / Unknown 12/30/2024 1:27 PM EDT 12/30/2024 4:17 PM EDT Kathrine Mota DO LAB BLOOD ORDERABLES Final R esult Performing Organization Address [facility] de Phone Number [facility] [address] [place] [phone] * RPR (Monitor) with Reflex to??Titer (12/30/2024 1:27 PM EDT) Pathologist [facility] RPR (Monitor) w/Refl Titer NON-REACTI VE NON-REACT MENDOZA [facility] Comment:THIS TEST WAS PERFOR MED AT:[employer] [place] [phone] RODRIGEZ MD Rapid Plasma Reagin Ab Titer TNP [facility] Blood Venous blood specimen / Unknown 12/30/2024 1:27 PM EDT 12/30/2024 4:17 PM EDT Kathrine Mota DO LAB BLOOD ORDERABLES Final R esult Performing Organization Address City/[facility] Co de Phone Number [facility] [address] [place] [phone] * HIV-1/2 Antigen and Antibodies, Fourth Generation, with Reflexes (12/30/2024 1:27 PM EDT) HIV AB/AG Nonreactive Nonreactive [facility] Comment:HIV-1 p24 Ag and/or HIV-1/HIV-2 Ab not detected.A test result that is nonreactive does not exclude thepossibility of exposure to or infection with HIV-1 and/orHIV-2. Nonreactive results in this assay for individualswith prior exposure to HIV-1 and/or HIV-2 may be due toantigen and antibody levels that are below the limit ofdetection of this assay.The [employer] HIV Ag/Ab Combo assay result andsupplemental assay results should be interpreted inconjunction with the patient's clinical presentation,history and other laboratory results. If the results areinconsistent with clinical evidence, additional testing issuggested to confirm the result. Blood Venous blood specimen / Unknown 12/30/2024 1:27 PM EDT 12/30/2024 4:17 PM EDT us Kathrine Mota DO LAB BLOOD ORDERABLES Final R esult Performing Organization Address [facility] Co de Phone Number [facility] [address] [place] [phone] * Hepatitis B Surface Antibody, Qualitative (12/30/2024 1:27 PM EDT) ~Hepatitis B Surface Antibody REACTIVE Nonreactive [facility] Comment:REACTIVE: > 11.99 mI U/mL Blood Venous blood specimen / Unknown 12/30/2024 1:27 PM EDT 12/30/2024 4:17 PM EDT Kathrine Mota DO LAB BLOOD ORDERABLES Final R esult Performing Organization Address [facility] Co de Phone Number [facility] [address] [place] [address] [phone] * (ABNORMAL) CBC (12/30/2024 1:27 PM EDT) [facility] White Blood Count 5.7 4.8 - 10.8 X10*3/uL [facility] Red Blood Count 3.87(L) 4.20 - 5.50 X10*6/uL [facility] Hemoglobin 11.7(L) 12.0 - 16.0 g/dl [facility] Hematocrit 34.8(L) 37.0 - 47.0 % [facility] Mean Corpuscular Volume 89.9 80.0 - 98.0 fL [facility] Mean Corpuscular Hemoglobin 30.2 27.0 - 33.0 pg [facility] Mean Corpuscular HGB Conc 33.6 31.0 - 35.0 g/dl [facility] Red Cell Distribution Width 13.0 11.0 - 16.0 % [facility] Platelet Count 211 160 - 400 X10*3/uL [facility] Mean Platelet Volume 11.2 9.4 - 12.3 fL [facility] NRBC Pct Auto 0.0 0.0 - 0.2 /100WBC [facility] NRBC Abs Auto 0.000 0.0 - 0.012 X10*3/uL [facility] Blood Venous blood specimen / Unknown 12/30/2024 1:27 PM EDT 12/30/2024 4:17 PM EDT us Kathrine Mota DO LAB BLOOD ORDERABLES Final R esult [facility] [address] [place] [phone] * Basic Metabolic Panel (12/30/2024 1:27 PM EDT) Only the most recent of3 resultswithin the time period is included. [facility] Sodium 140 135 - 145 mmol/L [facility] Potassium 3.5 3.3 - 5.1 mmol/L [facility] Chloride 104 96 - 108 mmol/L [facility] Carbon Dioxide 28 22 - 29 mmol/L [facility] Anion Gap 12 12 - 20 [facility] Urea Nitrogen (BUN) 12 9 - 16 mg/dL [facility] Creatinine, Serum 0.73 0.5 - 1.4 mg/dL [facility] Estimated Glomerular Filt Rate >60 [facility] Comment:Chronic Kidney Disea se: Estimated GFR < 60 mL/min/[id number] Kidney Disease: Estimated GFR < 15 mL/min/1.73m2 Glucose 71 60 - 115 mg/dL [facility] Calcium 9.3 8.4 - 10.2 mg/dL [facility] Blood Venous blood specimen / Unknown 12/30/2024 1:27 PM EDT 12/30/2024 4:17 PM EDT us Kathrine Mota DO LAB BLOOD ORDERABLES Final R esult [facility] [address] [place] [phone] * (ABNORMAL) Comprehensive Metabolic Panel (12/26/2024 12:28 AM EDT) Sodium 138 135 - 145 mmol/L [facility] Potassium 3.5 3.3 - 5.1 mmol/L [facility] Chloride 103 96 - 108 mmol/L [facility] Carbon Dioxide 26 22 - 29 mmol/L [facility] Anion Gap 13 12 - 20 [facility] Urea Nitrogen (BUN) 15 9 - 16 mg/dL [facility] Creatinine, Serum 0.63 0.5 - 1.4 mg/dL [facility] Creatinine Clr Calc Pharmacy 107.7 [facility] Comment:Provided height and weight: 165.1 cm,55.3 kg.eGFR (calculated from the MDRD study equation) and eCrCl(calculated from the Cockcroft-Gault equation) are based ondifferent parameters and may not yield comparable results.If eCrCl result is absurd, please check patient'sheight/weight. Estimated Glomerular Filt Rate >60 [facility] Comment:Chronic Kidney Disea se: Estimated GFR < 60 mL/min/[id number] Kidney Disease: Estimated GFR < 15 mL/min/1.73m2 Glucose 102 60 - 115 mg/dL [facility] Calcium 8.5 8.4 - 10.2 mg/dL [facility] Bilirubin, Total 0.4 0.0 - 1.0 mg/dL [facility] Aspartate Amino Transferase 29 5 - 31 U/L [facility] Alanine Aminotransferase 62(H) 0 - 31 U/L [facility] Total Protein 6.2(L) 6.5 - 8.0 g/dL [facility] Albumin Level 4.0 3.5 - 5.0 g/dL [facility] Alkaline Phosphatase 67 39 - 117 U/L [facility] 12/26/2024 12:2 8 AM EDT 12/26/2024 12:30 AM EDT us Generic External Data Provider LAB BLOOD ORDERAB LES Final Result Performing Organization Address City/State/[facility] Co de Phone Number [facility] [address] [place] [phone] * CT Abdomen Pelvis w/o Contrast (12/25/2024 10:04 PM EDT) Anatomical Region Laterality Modality Body, Pelvis, Abdomen Computed T omography 12/25/2024 10:0 4 PM EDT Narrative 12/25/2024 10:06 PM EDT [address] [address] [address] Scan Report Signed Patient: Jeniffer Nagy MR#: [id number] : 1990 Acct:[id number] Age/Sex: 34 / F ADM Date: 12/25/24 Loc: .ED Attending Dr: Ordering Physician: Lionel Gasca MD Date of Service: 12/25/24 Procedure(s): CT abdomen pelvis wo IV con Accession Number(s): [id number] cc: Lionel Gasca MD; THEO GALVIN NP Report Number: [id number]: Total DLP = 310.00 mGy-cm CLINICAL HISTORY: [...] in OV> 12/25/242205 DD/ 03 TD/TT: 12/25/242203 Agronomy Technician: Procedure Note Donotuseinterpreter, Image - 12/25/[address] [place] [address] [address] Scan Report Signed Patient: Jeniffer Nagy LMR#: [id number] : 1990Acct:[id number] Age/Sex: 34 / FADM Date: 12/25/24 Loc: HO.ED Attending Dr: Ordering Physician: Lionel Gasca MD Date of Service: 12/25/24 Procedure(s): CT abdomen pelvis wo IV con Accession Number(s): [id number] cc: Lionel Gasca MD; THEO GALVIN NP Report Number: [id number]: Total DLP = 310.00 mGy-cm CLINICAL HISTORY: [...] This document has been electronically signed by: eDlilah Moore MD on 12/25/2024 22:04:26 Dictated By: Delilah Moore MD Signed By: <Electronically signed by Delilah Moore MD in OV> 12/25/242205 DD/ 03 TD/TT: 12/25/242203 Agronomy Technician: [facility] External Provider IMG CT PROCEDURES Edited Result - Final * Culture, Urine, Routine (12/25/2024 4:30 PM EDT) Urine Urine specimen obtained by clean catch procedure / Unknown 12/25/2024 4:30 PM EDT 12/25/2024 4:30 PM EDT Comment:UACC Narrative [facility] - 12/27/2024 11:45 AM EDT Urine Culture No growth. Specimen Source: Urine clean catch Generic External Data Provider LAB MICROBIOLOGY - GENERAL ORDERABLES Final Result [facility] [address] [place] [phone] * (ABNORMAL) Urinalysis, Complete, with Reflex to Culture (12/25/2024 4:05 PM EDT) Color Urine Dark Yellow [facility] Appearance Urine Clear [facility] PH 6.5 5.0 - 9.0 [facility] Glucose Urine UA Negative Negative mg/dL [facility] Urine Blood Negative Negative [facility] Specific [place] - Urine >=1.030(H) 1.005 - 1.025 [facility] Urine Protein 30 (1+)(A) Neg-Trace mg/dL [facility] Urine Ketones 40 Negative mg/dL [facility] Nitrite Urine Negative Negative [facility] Leukocyte Esterase Urine Small (1+)(A) Negative [facility] RBC Urine 0-2 0 - 2 /HPF [facility] Urine WBC 11-20(A) 0 - 5 /HPF [facility] Urine Squamous Epithelial Cell 6-10 0 - 2 /HPF [facility] [facility] Urine Bacteria 2+ None Seen [facility] Hyaline Casts, Urine 0-2 0 - 2 /LPF [facility] 12/25/2024 4:05 PM EDT 12/25/2024 4:10 PM EDT Narrative [facility] - 12/25/2024 4:30 PM EDT [id number], Clean Catch us Generic External Data Provider LAB URINE ORDERAB LES Final Result [facility] [address] [place] [phone] * (ABNORMAL) CBC auto differential (12/25/2024 4:05 PM EDT) White Blood Count 5.8 4.8 - 10.8 X10*3/uL [facility] Red Blood Count 3.99(L) 4.20 - 5.50 X10*6/uL [facility] Hemoglobin 12.3 12.0 - 16.0 g/dl [facility] Hematocrit 35.0(L) 37.0 - 47.0 % [facility] Mean Corpuscular Volume 87.7 80.0 - 98.0 fL [facility] Mean Corpuscular Hemoglobin 30.8 27.0 - 33.0 pg [facility] Mean Corpuscular HGB Conc 35.1(H) 31.0 - 35.0 g/dl [facility] Red Cell Distribution Width 13.0 11.0 - 16.0 % [facility] Platelet Count 165 160 - 400 X10*3/uL [facility] Mean Platelet Volume 10.6 9.4 - 12.3 fL [facility] Neutrophils Percent Auto 74.5(H) 45 - 73 % [facility] Imm Gran Pct Auto 0.3 0.0 - 0.4 % [facility] Lymphocytes Percent Auto 17.6(L) 20 - 40 % [facility] Monocytes Percent Auto 6.6 2 - 11 % [facility] Eosinophils Percent Auto 0.7 0 - 4 % [facility] Basophils Percent Auto 0.3 0 - 2 % [facility] NRBC Pct Auto 0.0 0.0 - 0.2 /100WBC [facility] Neutrophils Absolute Auto 4.3 2.0 - 8.3 x10*3/uL [facility] Imm Gran Abs Auto 0.02 0.00 - 0.03 X10*3/uL [facility] Lymphocytes Absolute Auto 1.0(L) 1.2 - 4.9 X10*3/uL [facility] Monocytes Absolute Auto 0.4 0.1 - 1.2 X10*3/uL [facility] Eosinophils Absolute Auto 0.0 0.0 - 0.4 X10*3/uL [facility] Basophils Absolute Auto 0.0 0.0 - 0.2 X10*3/uL [facility] NRBC Abs Auto 0.000 0.0 - 0.012 X10*3/uL [facility] 12/25/2024 4:05 PM EDT 12/25/2024 4:10 PM EDT us Generic External Data Provider LAB BLOOD ORDERAB LES Final Result [facility] [address] [place] [phone] * hCG, Total, Quantitative (12/25/2024 4:05 PM EDT) HCG Quantitative <2 mIU/mL [facility] Comment:Weeks post LMP Appro ximate hCG(Last Menstrual Period) Range (mIU/ml)3 - 4 weeks 9 - 1304 - 5 weeks 75 - 2,6005 - 6 weeks 850 - 20,8006 - 7 weeks 4000 - 100,2007 - 12 weeks 11,500 - 289,53022 - 16 weeks 18,300 - 137,73411 - 29 weeks (2nd trimester) 1,400 - 53,64836 - 41 weeks (3rd trimester) 940 - [...] ORDERAB LES Final Result Performing Organization Address [facility]/ZIP Co de Phone Number [facility] [address] [place] [phone] * Lipase (12/25/2024 4:05 PM EDT) Lipase 15 8 - 78 U/L [facility] 12/25/2024 4:05 PM EDT 12/25/2024 4:10 PM EDT Generic External Data Provider LAB BLOOD ORDERAB LES Final Result Performing Organization Address [facility] Co de Phone Number [facility] [address] [place] [phone] * (ABNORMAL) POCT Urinalysis (12/25/2024 1:11 [...] Media Lot # [id number] Lot# Expiration Date [id number] Urine 12/25/2024 1:11 PM EDT [facility] POINT OF CARE TEST ENTER/EDIT OR DERABLES Final Result * US Pelvis Transvaginal (11/14/2024 1:00 PM EDT) Anatomical Region Laterality Modality Pelvis Ultrasound 11/14/2024 1:00 PM EDT Narrative 11/14/2024 1:02 PM EDT [facility] [address] [place] [address] [place] [address] Ultrasound Report Signed Patient: Jeniffer Nagy MR#: [id number] : 1990 Acct:[id number] Age/Sex: 34 / F ADM Date: 11/13/24 Loc: .HMGCX Attending Dr: Kathrine Mota DO Ordering Physician: Kathrine Mota DO Date of Service: 11/13/24 Procedure(s): US pelvic and transvaginal Accession Number(s): [id number] cc: Kathrine Mota DO CLINICAL HISTORY: prolonged [...] 11/14/24 1302 DD/ 1300 TD/TT: 11/14/24 1300 Agronomy Technician: Procedure Note Donotuseinterpreter, Image - 11/14/2024 [facility] [place] [address] Ultrasound Report Signed Patient: Jeniffer Nagy R#: [id number] : 1990Acct:[id number] Age/Sex: 34 / FADM Date: 11/13/24 Loc: HO.HMGX Attending Dr: Kathrine Mota DO Ordering Physician: Kathrine Mota DO Date of Service: 11/13/24 Procedure(s): US pelvic and transvaginal Accession Number(s): [id number] cc: Kathrine Mota DO CLINICAL HISTORY: prolonged [...] 11/14/24 1302 DD/ 1300 TD/TT: 11/14/24 1300 Agronomy Technician: us Kathrine Mota DO IMG US PROCEDURES Edited Res ult - Final * Pap Smear (12/21/2023 12:00 AM EDT) Swab us Historical Provider LAB CYTOLOGY ORDERABLES F inal Result [facility] [address] [place] [phone] * Thinprep TIS PAP And HPV mRNA E6/E7 With Reflex To HPV 16,18/45 (04/12/2022 9:20 AM EST) Clinical Information: None given [facility] LMP: NONE GIVEN [employer] Prev. PAP: NONE GIVEN [facility] Prev. BX: NONE GIVEN [facility] SOURCE: None given [facility] [employer] Statement Of Adequacy: [employer] Comment: Satisfactory for evaluation. Endocervical/transformation zone component present. Age and/or menstrual status not provided Interpretation/ Result: Negative for intraepithelial lesion or malignancy. [employer] COMMENT: This Pap test has been evaluated with computer assisted technology. [employer] Cytotechnologis t: [employer] [facility] Comment: SL, CT(ASCP) CT screening location: [address] [address] Review Cytotechnologis t: [employer] [facility] Comment: WAC, CT(ASCP) CT screening location: [address] [address] (Always Message) [employer] Comment: EXPLANATORY NOTE: The Pap is a [...] HPV nRNA E6/E7 Not Detected Not Detected [employer] Comment: Methodology: Electrical Subcontractor-Mediated Amplification This assay detects E6/E7 viral messenger RNA (mRNA) from 14 high-risk HPV types (16,18,31,33,35,39,45,51,52,56,58,59,66,68). Cervical sources are required for HPV testing. If a vaginal source from a patient who has had a total hysterectomy with removal of cervix was submitted, please contact the testing laboratory for alternative testing options. For additional information, please refer to http://education.[employer]pic[employer]ia/faq/STL837d8 (This link if provided for information/ educational purposes only.) 04/12/2022 9:20 AM EST 04/13/2022 8:41 AM EST Marni GRIG[facility] LAB PATHOLOGY ORDERABLES Final Result [address], [facility] [place] [address] [employer] [address] [place] [address], [place] [address] from Last 3 Months or Most Recently Relevant to Health Maintenance Insurance [employer] C3 Care Teams Door To Door Salesperson Relationship Specialty Start Date End Date Kathrine Mota DO [address] [place] [phone] PCP - General Family Medicine 05/14/18 Fadumo Belle 11/06/24
--- OUTSIDE RECORDS SUMMARY | 2025-02-02 12:30 | XMS_ITS ---
Author Organization [employer] Address [address] [place] [address] 7 [place] [address] Care Team Providers Care Chartered Accountant Name Role Phone Kathrine Mota DO Primary Care Provider [phone] Fadumo Belle C3 CM Maternal Advocate Status:Enrolled (Active) Start date:10/27/2024 Enrollment date:11/03/2024 Enrollment reason:Referred by provider Overview SDOH Referral- Patient came in to health center looking for assistance with housing. Pt has open case with RN NERI Vila. Case Team Name Relationship Phone Fadumo Belle(Responsible Staff) [phone] Continued Care and Services Coordination
--- OUTSIDE RECORDS SUMMARY | 2025-02-02 12:30 | XMS_ITS | Encounter Summary ---
Author Organization [employer] Address [address] [place] [address] 7t [place] [address] Care Team Providers Care Talcer Name Role Phone Aylin Motafer Primary Care Provider [phone] Fadumo Belle Unavailable Encounter Details Date Type Department Care Team ([facility] st Contact Info) Description 12/31/2024 Results Follow-Up [facility] [address] [place], [place] [phone] Юлия Ravi ANP [address] [place] [address] Hepatic Function Panel, Hepatitis A,B,C Profile Social [...] with others, in a hotel, in a senior care, living outside on the street, on a [...] documented as of this encounter Care Teams Talcer Relationship Specialty Start Date End Date Kathrine Mota DO [address] [place] [phone] PCP - General Family Medicine 05/14/18 Fadumo Belle 11/06/24 documented as of this encounter
--- OUTSIDE RECORDS SUMMARY | 2025-02-02 12:30 | XMS_ITS | Clinical Summary ---
Author Organization [facility] Address [address] [place] [address] Phone Care Team Providers Care Gum Maker Name Role Phone WillisKathrine thomason Primary Care Provider [phone] Allergies Active Allergy Reactions Criticality Noted Date Comments Azithromycin High 08/21/2016 Other reaction(s): hives, swelling Etonogestrel Rash Low 03/27/2019 Other reaction(s): Rash Penicillins Hives 06/12/2024 Medications No known medications Surgical History Surgery Date Site/Laterality Comments OTHER SURGICAL HISTORY 11/15 PROCEDURE: TX DILATION & CURETTAGE DX&/THER NONOBSTETRIC; COMMENT: elective TOP TONSILLECTOMY 07/18 PROCEDURE: HISTORICAL TONSILLECTOMY OVARIAN CYST REMOVAL PROCEDURE: TX OVARIAN CYSTECTOMY UNI/BI Medical History Medical History [...] topic Insurance MEDICAID - [place] Care Teams Gum Maker Relationship Specialty Start Date End Date Kathrine Mota DO [address] [place] [address] PCP - General Internal Medicine 10/29/12
--- OUTSIDE RECORDS SUMMARY | 2025-02-02 12:30 | XMS_ITS | Encounter Summary ---
Author Organization [employer] Address [address] [place] [address] 7 [place] [address] Care Team Providers Care Custodial Aide Name Role Phone Kathrine Mota DO Primary Care Provider + [phone] Rossi Herzog Unavailable Fadumo Belle Unavailable Encounter Details Date Type Department Care Team (Late st Contact Info) Description 09/09/2024 Orders Only [facility] [address] [place], [place] [phone] Marni Stout CNM [address] [place] [address] Social History Tobacco Use Types Packs/Day Years [...] MD LAB CYTOLOGY ORDERABLES F inal Result [facility] [address] [place] [address] documented in this encounter Visit Diagnoses Not on filedocumented in this encounter Additional Health Concerns Assessment Noted Time PHQ-9 Depression Total Score: 13 025 9:53 AM EDT documented as of this encounter Care Teams Custodial Aide Relationship Specialty Start Date End Date Kathrine Mota DO [address] [place] [address] PCP - General Family Medicine 05/14/18 Rossi Herzog 10/27/24 11/06/24 Fadumo Belle 11/06/24 documented as of this encounter
--- OUTSIDE RECORDS SUMMARY | 2025-02-02 12:30 | XMS_ITS | Encounter Summary ---
Author Organization [employer] Address [address] [place] [address] 7 [place] [address] Care Team Providers Care Color Stripper Name Role Phone Kathrine Mota DO Primary Care Provider [phone] Fadumo Belle Unavailable Reason for Visit * Reason Comments Med Refill Encounter Details Date Type Department Care Team (Late st Contact Info) Description 01/29/2025 Refill [facility] [address] [place], [place] [phone] Kathrine Mota DO [address] [place] [address] Seasonal allergic rhinitis, unspecified trigger Social History Tobacco Use Types Packs/Day Years [...] with others, in a hotel, in a halfway, living outside on the street, on a [...] documented as of this encounter Visit Diagnoses Diagnosis Seasonal allergic rhinitis, unspecified trigger documented in this encounter Additional Health Concerns Assessment Noted Time PHQ-9 Depression Total Score: 17 025 4:14 PM EDT documented as of this encounter Care Teams Color Stripper Relationship Specialty Start Date End Date Kathrine Mota DO [address] [place] [phone] PCP - General Family Medicine 05/14/18 Fadumo Belle 11/06/24 documented as of this encounter
--- OUTSIDE RECORDS SUMMARY | 2025-02-02 12:30 | XMS_ITS | Encounter Summary ---
Author Organization [employer] Address [address] [place] [address] [address] [place] [address] Care Team Providers Care Income Tax Analyst Name Role Phone Kathrine Mota DO Primary Care Provider [phone] Rossi Herzog Unavailable Fadumo Belle Unavailable Encounter Details Date Type Department Care Team (Late st Contact Info) Description 02/14/2023 Abstract [facility] [address] [place] [address] Kathrine Mota DO [address] [place] [address] Social History Tobacco Use Types Packs/Day Years [...] on filedocumented in this encounter Care Teams Income Tax Analyst Relationship Specialty Start Date End Date Kathrine Mota DO [address] [place] [address] PCP - General Family Medicine 05/14/18 Rossi Herzog 10/27/24 11/06/24 Fadumo Belle 11/06/24 documented as of this encounter
[2025-02-02 13:02] LABS: MANUAL DIFF FLAG NO
[2025-02-02 13:27] LABS: Hematocrit 37.2 % (37.0-47.0); Hemoglobin 13.1 g/dl (12.0-16.0); Imm Gran Abs Auto 0.03 X10*3/uL (0.00-0.03); Imm Gran Pct Auto 0.4 % (0.0-0.4); Lymphocytes Absolute Auto 1.6 X10*3/uL (1.2-4.9); Mean Corpuscular HGB Conc 35.2 g/dl (31.0-35.0); Mean Corpuscular Hemoglobin 30.8 pg (27.0-33.0); Mean Corpuscular Volume 87.5 fL (80.0-98.0); NRBC Abs Auto 0.000 X10*3/uL (0.0-0.012); NRBC Pct Auto 0.0 /100WBC (0.0-0.2); Platelet Count 247 X10*3/uL (160-400); Red Blood Count 4.25 X10*6/uL (4.20-5.50); White Blood Count 7.1 X10*3/uL (4.8-10.8)
[2025-02-02 16:44] LABS: Alanine Aminotransferase 30 U/L (0-31); Albumin Level 4.2 g/dL (3.5-5.0); Alkaline Phosphatase 69 U/L (39-117); Anion Gap 7 (12-20); Aspartate Amino Transferase 28 U/L (5-31); Blood Urea Nitrogen 13 mg/dL (9-16); Calcium 8.8 mg/dL (8.4-10.2); Carbon Dioxide 31 mmol/L (22-29); Chloride 105 mmol/L (96-108); Cholesterol 158 mg/dL (<200); Estimated Glomerular Filt Rate > 60; HDL Cholesterol 63 mg/dL (>40); Potassium 4.2 mmol/L (3.3-5.1); Sodium 139 mmol/L (135-145); Total Protein 7.1 g/dL (6.5-8.0); Triglycerides 51 mg/dL (<150)
== END 2025-02-02 10:10 | disposition home or self-care (01) ==
LOC: HO.HHCL 10:09
PROVIDERS: PCP Family Medicine; Referring Provider Registered Nurse Psychiatric/Mental Health; Visit Provider Family Medicine
DX: R74.8 Abnormal levels of other serum enzymes (principal); Z79.899 Other long term (current) drug therapy
CPT/HCPCS: 36415; 80053; 80061; 80076; 82248; 84443; 85025

== ENCOUNTER 2025-05-06 09:50 | Outpatient (REF) | payer MEDICAID, SELFPAY ==
--- OUTSIDE RECORDS SUMMARY | 2025-05-01 23:59 | XMS_ITS | Continuity of Care Document ---
Author Organization [facility] Address [address] [place] [address]- Support Name Relationship Address Phone DARRION VÁZQUEZ Personal Relationship Unknown Юлия vailable CHRIS, DARRION Personal Relationship Unknown Un available VÁZQUEZ, MALIKA Personal Relationship Unknown Un available CHRIS, JOSE J mother Unknown Unavaila ble NONE, PT STS Other Unknown Unavailable VÁZQUEZ, MALIKA Personal Relationship Unknown Un available CHRIS, JOSE J Personal Relationship Unknown Unavailable VÁZQUEZ, MALIKA Personal Relationship Unknown Un available VÁZQUEZ, MALIKA Personal Relationship Unknown Un available CHRIS, DARRION Personal Relationship Unknown Un available CHRIS, DARRION Personal Relationship Unknown Un available CHRIS, DARRION Personal Relationship Unknown Un available NAOMI, YUSUF child Unknown Unavailable VÁZQUEZ, MALIKA Personal Relationship Unknown Un available VÁZQUEZ, MALIKA Personal Relationship Unknown Un available VÁZQUEZ, MALIKA Personal Relationship Unknown Un available CHRIS, DARRION Personal Relationship Unknown Un available ANGELES, JOSE J mother Unknown Unavailable LAPIERE, DARRION step parent Unknown Unavailable NAOMI, GLORIA domestic partner Unknown Unavaila ble LAPIERE, JOSE J mother Unknown Unavailab le VÁZQUEZ, MALIKA Personal Relationship Unknown Un available CHRIS, DARRION Personal Relationship Unknown Un available VÁZQUEZ, FABBY child Unknown Unavailable CHRIS, DARRION Personal Relationship Unknown Un available VÁZQUEZ, MALIKA Personal Relationship Unknown Un available NAOMI, SEBATIAN spouse Unknown Unavailable ANGELES, CELLINA sibling Unknown Unavailable Care Team Providers Care Bed Placement Coordinator Name Role Phone Kathrine Mota DO Primary Care Physician Encounter [facility] Date(s): 04/01/25 - 05/01/25 [facility] [address] [address]- Attending Physician: Anson Martinez Encounter Type: Triage Allergies, Adverse Reactions, Alerts Substance Criticality Severity Reaction Reaction Severity Status penicillins full body rash/hives Active Immunizations Given and Recorded Vaccine Date Status Refusal Reason tetanus/diphtheria/pertussis, acel(Tdap) 06/19/23 Given tetanus/diphtheria/pertussis, acel(Tdap) 10/21/21 Given tetanus/diphtheria/pertussis, acel(Tdap) 03/29/17 Given tetanus/diphtheria/pertussis, acel(Tdap) 1 05/02/13 Given tetanus/diphtheria/pertussis, acel(Tdap) 07/17/11 Given influenza virus vaccine, inactivated 02/12/23 Give n influenza virus vaccine, inactivated 05/20/21 Give n influenza virus vaccine, inactivated 2 02/19/17 Gi char influenza virus vaccine, inactivated 06/11/15 Give n influenza virus vaccine, inactivated 03/06/13 Give n influenza virus vaccine, inactivated 03/07/11 Give n SARS-CoV-2 (COVID-19) mRNA BNT-162b2 vac 02/22/21 Recorded SARS-CoV-2 (COVID-19) mRNA BNT-162b2 vac 02/01/21 Recorded Diphth/haemophilus/pertussis/tet/polio 03/20/13 Gi char 1Admin Note: mckenna 07/07/2011 2Admin Note: AFLURIA VACCINE Medications FLUoxetine 10 mg oral capsule TAKE ONE (1) CAPSULE BY MOUTH DAILY WITH 40MG CAPSULE Start Date: 06/16/24 Status: Ordered Medication Dispense Status: Completed Total Allowed Fills: 1 Fills Dispensed: 0 FLUoxetine 40 mg oral capsule 1 capsule = 40 mg, By Mouth, Daily, Maintenance, 06/16/24 4:15:00 PM EST, Capsule Start Date: 06/16/24 Status: Ordered Medication Dispense Status: Completed Total Allowed Fills: 1 Fills Dispensed: 0 Caren 3 mg-0.02 mg oral tablet 1 tablet, By Mouth, Daily, # 84 tablet, 4 Refills, Maintenance, 03/06/25 4:02:00 PM EDT, Tablet, [facility]/pharmacy #[id number], Partial fill upon patient request if the prescription is for a schedule II opioid drug., 1 tablet By Mouth Daily, 165, cm, 03/06/25 14:42:00 EDT, Height, 58.2, kg, 06/16/24 8:14:00 EST, Dry Weight Start Date: 03/06/25 Status: Ordered Medication Dispense Status: Completed Quantity: 84.0 Unit: tablet Total Allowed Fills: 5 Fills Dispensed: 0 ZyrTEC 10 mg oral tablet 1 tablet = 10 mg, By Mouth, Daily, 0 Refills, Maintenance, 12/16/24 9:41:00 AM EDT, Partial fill uponpatient request if the prescription is for a schedule II opioid drug. Start Date: 12/16/24 Status: Ordered Medication Dispense Status: Completed Total Allowed Fills: 1 Fills Dispensed: 0 Problem List Condition Confirmation Course Effective Dates Status Health St atus Informant Chronic female pelvic pain Confirmed Active Constipation Confirmed Active History of cervical dysplasia, MARIBEL 2 in 2012 Confirmed Active Anxiety and depression Confirmed Active Vital Signs Most recent to oldest [Reference Range]: 1 2 3 Height 167.00 cm (02/01/11 12:37 PM) 167.00 cm (02/01/11 9:32 AM) 167.00 cm (01/25/11 12:42 PM) Weight 63.630 kg (01/25/11 12:42 PM) 64.090 kg (12/26/10 12:41 PM) 63.560 kg (01/20/10 12:41 PM) Body Mass Index [18.50-24.99] 22.82 (01/25/11 12:42 PM) 22.98 (12/26/10 12:41 PM) 22.79 (01/20/10 12:41 PM) Blood Pressure [90-138/55-84 mm Hg] 100/60mm Hg (01/25/11 12:42 PM) 106/62mm Hg (01/20/10 12:41 PM) Social History Social History Type Response Smoking Status Never (less than 100 in lifetime) entered on: 05/10/21 Sexual Orientation Self described orien tation: ; Straight or heterosexual Sex Sex Representation Female (finding) Laboratory * Daniela Johns: PERFORM Event Display: Laboratory Results Scanned Authored Date: [id number] Imaging * Isiah , Vi: PERFORM Event Display: Radiology Results Scanned Authored Date: [id number] * Jen Ferguson: PERFORM Event Display: Radiology Results Scanned Authored Date: [id number] Note * Alan Collazo: PERFORM, SIGN, VERIFY Event Display: Patient Education/Instruction Authored Date: [id number] [facility] Snuff Grinder And Screener Clinical Summary Person Information Name MALIKA VÁZQUEZ Age 22 Years 1990 12:00 AM PCP Kathrine Mota DO PCP Reason for Visit: Allergy Info: NKA Vital Signs Height 167.00 cm Weight 63.630 kg BMI 22.82 Blood Pressure 100 mm Hg/60 mm Hg Temperature Pulse Rate Respiratory Rate 02 Sat Mode of Delivery / Medication Information Docusate (Colace sodium 100 mg oral capsule) 1 capsule, Oral, twice a day, As Needed, for constipation, Refills: 3 Ondansetron (Zofran ODT 4 mg oral tablet, disintegrating) 1 tablet, Oral, every 8 hours, As Needed,Nausea & Vomiting, Refills: 0 Polyethylene Glycol 3350 (MiraLax oral powder for reconstitution) 17 Gm, Oral, Daily, 7 days, Refills: 3 Progesterone (progesterone 100 mg vaginal suppository) 1 supp, Vaginally, Daily, Refills: 7 Problem List Date Problem 10/31/12 06/18/12 Papanicolaou Smear of Cervix with High Grade Squamous Intraepithelial Lesion (HGSIL) 02/01/11 Rh negative 02/01/11 Cyst of ovary 06/15/11 MARIBEL 2 - Cervical intraepithelial neoplasia 2 If the following labs have been performed in the last year, the most recent result is displayed below. Diagnostic Results Lab Result Value Date Lead Hemoglobin A1C LDL HDL Triglycerides Total Cholesterol Disclaimer: The information provided is of a general nature and is intended to be used in conjunction with the recommendations and advice of your health care practitioner. Every effort has been made to ensure that the information provided is accurate and complete at the time it is provided to you however, as your needs change, or, as new information becomes available, different or additional instructions may be required. If you have questions, please consult with your primary care provider or pharmacist, as appropriate. This information is not intended to serve as substitution for assessment and evaluation by a qualified health care provider. If you do not have a primary care provider, you may find a [facility] provider by calling [facility] [employer] [facility] at [phone]. Patient Education Information Follow-up Details: Patient Education Material: 33828 Colposcopy Reasons for the Procedure Colposcopy is usually done as a follow-up exam to help find the cause of an abnormal Pap test. Abnormal Pap tests are often due to an HPV (human papilloma virus) infection. HPV is a large family of viruses. HPV can cause genital warts. It can also cause changes in cervical cells. Colposcopy is alsoused to assess other problems. These include pain or bleeding during sexual intercourse, or a lesion on the vulva or vagina. What Are the Risks? Problems after colposcopy are very rare, but can include: ??? Bleeding (if a biopsy is done) ??? Infection Getting Ready for the Procedure Colposcopy is normally done in your healthcare provider???s office. It will be scheduled for a timewhen you???re not having your menstrual period. You may be asked to sign a form giving your consentto have the procedure. A day or two before the procedure, your healthcare provider may also ask youto: ??? Avoid sexual intercourse. ??? Stop using tampons. ??? Avoid using creams or other vaginal medications. ??? Avoid douching. ??? Take kuul-fnf-[id number] pain medications an hour or two before the procedure. During Colposcopy ??? You will be asked to lie on an exam table with your knees bent, just as you do for a Pap test. ??? An instrument called a speculum is inserted into the vagina to hold it open. ??? A vinegar solution is applied to the cervix to make the cells easier to see. You may feel pressure or a slight burning for a few moments. In some cases, the cervix may be numbed first with an anesthetic. ??? The cervix is viewed through the colposcope, which is placed outside the vagina. ??? If your healthcare provider sees abnormal areas on the cervix, a biopsy will be done. The tissue sample is sent to a lab for study. ??? You may feel slight pinching or cramping during the biopsy. Medication may be applied to the biopsy site to stop bleeding. After the Procedure ??? If you feel lightheaded or dizzy, you can rest on the table until you???re ready to get dressed. ??? If a biopsy was done, you may have mild cramping or light bleeding for a few days. You may alsohave discharge from the medication used to stop bleeding at the biopsy site. ??? Use pads, not tampons, for at least the first 24 hours. ??? If you have any discomfort, awwf-zig-wuujfzw pain medication can provide relief. ??? Ask your healthcare provider when you can resume sexual intercourse. Follow-Up If a biopsy was done, your healthcare provider will get the lab report in a week or two. You and your healthcare provider can then discuss the results. In some cases, you may be scheduled for furthertests or treatment. Be sure to keep follow-up appointments with your healthcare provider. Call your healthcare provider if you have: ??? Heavy vaginal bleeding (more than a pad an hour for 2 hours). ??? Severe or increasing pelvic pain. ??? A fever over 101??F. ??? Foul-smelling or unusual vaginal discharge. ?? [id number], [place] [address]. All rights reserved. This information is not intended as a substitute for professional medical care. Always follow your healthcare professional's instructions. [address]26 HPV and Genital Warts: Understanding Your Diagnosis HPV (human papillomavirus) is the virus that causes genital warts. If you have HPV, you???re not alone. Millions of people carry this virus. Finding out you have HPV may be upsetting for you and yourpartner. But learning about HPV and its treatments can make you both feel better. Then you can go on with your lives together. Accepting Your Diagnosis At first, it may be hard to respond to what you???ve learned. Take time to let everything sink in. Here are some things to think about: ??? How your body looks. Remember that genital warts can be removed. You may feel better if you share any concerns about your body with your partner. ??? Long-term health issues. Some strains of HPV are linked with cervical and other cancers. But most people with HPV do not develop cancer. Taking care of yourself and seeing your healthcare provider as directed reduces the cancer risk even more. ??? Protecting your partner. Being honest about HPV will protect your partner???s health. You and your partner can take steps to keep HPV from spreading. If you???re with someone new, talk about HPV before you have sex. Talking to Your Partner When you???re ready, talk to your partner about your diagnosis. ??? If you???re calm, your partner may find it easier to stay calm. Remember, HPV can take months or years to produce warts. It???s nearly impossible to know who was infected first. Try not to blame each other. ??? Suggest that your partner get checked. Even if no warts are present, visiting a healthcare provider may make your partner feel better. ??? When you both feel ready, it???s okay to have sex. It???s safest to use a latex condom every time. But know that condoms and other barriers only protect the skin they cover. Warts are contagious,so avoid touching them. (This includes oral sex.) ??? If you???re in a committed relationship and are not currently using condoms, discuss whether you want to change your habits. Remember that condoms are the only effective way to protect against many diseases. Suggest that your partner ask his or her healthcare provider about the HPV vaccine. And ask your own healthcare provider whether this vaccine is right for you. ?? 7543-0113 [place] [address]. All rights reserved. This information is not intended as a substitute for professional medical care. Always follow your healthcare professional's instructions. * Ping Weston: PERFORM Event Display: Discharge/Transfer Note Hospital Authored Date: Patient Care team information Care Team Personnel Name: Kathrine Mota DO Position: [facility] Outreach Member Role: PCP Address: [address] [place] [id number] Telecom: Care Team Related Persons Name: PETE REYNOSO Name: JOSE J REYNOSO Name: FABBY VÁZQUEZ Name: DARRION CAVAZOS Name: JOSE J PEREZ Name: YUSUF SALGADO Name: GLORIA SALGADO Name: DILMA SALGADO Insurance Providers Guarantor name: MALIKA [facility] Information #: 1 Payer: [employer] Payer Identifier: MELI Member Number: [id number] Group Number: [id number] Subscriber Identifier: NA Relationship to Subscriber: self Coverage Type: MEDICAID Coverage Verification Date: NA Telecom: NA Address:
--- NOTE | ~2025-05-06 | XR_ITS ---
EXAMINATION: XR CHEST CLINICAL INFORMATION: R63.4 - Abnormal weight loss COMPARISON: Radiographs on December 29, 2018 TECHNIQUE: 2 views of the chest were obtained. FINDINGS: Lungs: No focal consolidation or evidence of pulmonary edema. Pleura: No pleural effusion or pneumothorax. Heart/Mediastinum: Cardiomediastinal silhouette is within normal limits. Bones: No acute findings. XR/XR chest 2V IMPRESSION: No acute cardiopulmonary process. Electronically signed by: Reginaldo Patel MD 05/06/2025 11:35 AM EST
[2025-05-08 13:03] LABS: Immunoglobulin A 137 mg/dL (47-310)
== END 2025-05-06 09:51 | disposition home or self-care (01) ==
LOC: HO.XRAY 09:50
PROVIDERS: PCP Family Medicine; Visit Provider Nurse Practitioner Family
DX: K59.00 Constipation, unspecified (principal); R63.4 Abnormal weight loss; R14.0 Abdominal distension (gaseous); K21.9 Gastro-esophageal reflux disease without esophagitis; K92.1 Melena
CPT/HCPCS: 36415; 71046; 82784; 83013; 86364; 99212

== ENCOUNTER 2025-05-06 09:50 | Outpatient (AMB) | payer MEDICAID, SELFPAY ==
--- OUTSIDE RECORDS SUMMARY | 2025-05-06 09:58 | XMS_ITS | Encounter Summary ---
Author Organization [employer] Address [address] [place] [address] [address] [place] [address] Care Team Providers Care Veterans Rehabilitation Counselor Name Role Phone Kathrine Mota DO Primary Care Provider Rossi Herzog Unavailable Fadumo Belle Unavailable Encounter Details Date Type Department Care Team (Late st Contact Info) Description 02/14/2023 Abstract [facility] [address] [place] [address] Kathrine Mota DO [address] [place] [address] Social History Tobacco Use Types Packs/Day Years [...] on filedocumented in this encounter Care Teams Veterans Rehabilitation Counselor Relationship Specialty Start Date End Date Kathrine Mota DO [address] [place] [address] PCP - General Family Medicine 05/14/18 Rossi Herzog 10/27/24 11/06/24 Fadumo Belle 11/06/24 03/16/25 documented as of this encounter
--- OUTSIDE RECORDS SUMMARY | 2025-05-06 09:58 | XMS_ITS | Clinical Summary ---
Author Organization [facility] Address [address] [place] [address] Phone Care Team Providers Care Repairer Finished Metal Name Role Phone WillisKathrine thomason Primary Care Provider [phone] Allergies Active Allergy Reactions Criticality Noted Date [...] not to disclose 2024 6:03 PM EST Last Filed Vital Signs Vital Sign Reading [...] 06/19/2033 06/19/2023, 10/21/2021, 02/01/2021, Additional history exists RSV Immunization Adult Patients (1 - 1-dose 75+ series) 10/05/2063 MMR Vaccines Completed 08/05/2002, 01/02/1991 Hepatitis B [...] topic Insurance MEDICAID - [place] Care Teams Repairer Finished Metal Relationship Specialty Start Date End Date Kathrnie Mota DO [address] [place] [address] PCP - General Internal Medicine 10/29/12
--- OUTSIDE RECORDS SUMMARY | 2025-05-06 09:58 | XMS_ITS | Encounter Summary ---
Author Organization [employer] Address [address] [place] [address] [address] [place] [address] Care Team Providers Care Vice President Industrial Relations Name Role Phone Kathrine Mota DO Primary Care Provider + [phone] Rossi Herzog Unavailable Fadumo Belle Unavailable Encounter Details Date Type Department Care Team (Late st Contact Info) Description 09/09/2024 Orders Only [facility] [address] [place], [place] [id number] Marni Stout CNM [address] [place] [address] Social History Tobacco Use Types Packs/Day Years [...] MD LAB CYTOLOGY ORDERABLES F inal Result [facility] [address] [place] [address] documented in this encounter Visit Diagnoses Not on filedocumented in this encounter Additional Health Concerns Assessment Noted Time PHQ-9 Depression Total Score: 13 025 9:53 AM EDT documented as of this encounter Care Teams Vice President Industrial Relations Relationship Specialty Start Date End Date Kathrine Mota DO [address] [place] [address] PCP - General Family Medicine 05/14/18 Rossi Herzog 10/27/24 11/06/24 Fadumo Belle 11/06/24 03/16/25 documented as of this encounter
--- OUTSIDE RECORDS SUMMARY | 2025-05-06 09:58 | XMS_ITS | Encounter Summary ---
Author Organization [employer] Address [address] [place] [address] 7 [place] [address] Care Team Providers Care Supervisor Brine Name Role Phone Kathrine Mota DO Primary Care Provider [phone] Rossi Herzog Unavailable Fadumo Belle Unavailable Encounter Details Date Type Department Care Team ([facility] st Contact Info) Description 01/16/2023 Orders Only [facility] [address] [place] [address] Kathrine Alexander LPN Social History Tobacco Use [...] on filedocumented in this encounter Care Teams Supervisor Brine Relationship Specialty Start Date End Date Kathrine Mota DO [address] [place] [address] PCP - General Family Medicine 05/14/18 Rossi Herzog 10/27/24 11/06/24 Fadumo Belle 11/06/24 03/16/25 documented as of this encounter
--- OUTSIDE RECORDS SUMMARY | 2025-05-06 09:58 | XMS_ITS | Clinical Summary ---
Author Organization [employer] Address [address] [place] [address] 7 [place] [address] Care Team Providers Care Fruit Trimmer Name Role Phone Nakul Kathrine Primary Care Provider Allergies Active Allergy Reactions Criticality Noted Date [...] mL into the shoulder, thigh, or buttocks. 1 Active Nutritional Supplements (Boost High Protein) liquid Take 1 Bottle by mouth 2 times daily. 50214 mL 11 5 10/17/19 26 Active mirtazapine (Remeron) 15 MG tablet TAKE 1 TABLET BY MOUTH AT BEDTIME 30 tablet 5 Active polycarbophil (Fibercon) 625 MG tablet Take 1 tablet (625 mg) by mouth 2 times daily. 180 tablet 3 5 01/17/20 26 Active Saccharomyces boulardii (probiotic) 250 MG capsule Take 1 capsule (250 mg) by mouth Once per day. 30 capsule 3 5 Active cetirizine (ZyrTEC) 10 MG tabletIndication s:Seasonal allergic rhinitis, unspecified trigger TAKE 1 TABLET BY MOUTH EVERY DAY 90 tablet 1 5 Active albuterol 108 (90 Base) MCG/ACT inhaler Inhale 2 puffs every 4 (four) hours if needed for wheezing or shortness of breath. 18 g 1 5 03/25/20 26 Active Spacer/Aero-Hold ing Chambers (OptiChamber Carmel) misc 1 each every 4 (four) hours if needed (asthma). 1 each 5 Active guaiFENesin-code ine (Robitussin-AC) 100-10 MG/5ML syrup Take 5 mL by mouth if needed in the morning, at noon, in the evening, and at bedtime for cough. 237 mL 5 Active Active Problems Problem Noted Date Diagnosed Date Severe episode of recurrent major depressive disorder, without psychotic features ([facility]) 11/26/2024 Assessment & Plan (11/26/2024 4:34 PM [...] an issue that others in [place] are also worry about. Jeniffer feels motivated and ready to take the next steps as part of self-care. She prefers in-person sessions and was self-referred to OP therapy with [facility] where she will also start medication [...] an issue that others in [place] are also worry about. Jeniffer feels motivated and ready to take the next steps as part of self-care. She prefers in-person sessions and was self-referred to OP therapy with [facility] where she will also start medication [...] an issue that others in [place] are also worry about. Jeniffer feels motivated and ready to take the next steps as part of self-care. She prefers in-person sessions and was self-referred to OP therapy with [facility] where she will also start medication management per her request *intake completed today*. Allergy to penicillin 06/06/2023 06/06/2023 History of hemorrhage 06/06/2023 06/06/2023 History of delivery 05/19/2022 Severe anxiety 05/19/2022 Chronic female pelvic pain 05/19/2022 BMI 20.0-20.9, adult 05/19/2022 Abnormal uterine bleeding 05/18/2022 Allergic rhinitis 05/18/2022 Eczema 09/15/2015 Resolved Problems Problem Noted Date Diagnosed Date Resolved Date Razo cerclage present 06/06/2023 06/06/2023 Request for sterilization 06/06/2023 06/06/20235 Rh negative, maternal 06/06/2023 06/06/20232024 Anxiety and depression 05/19/202208/01 Overview (06/06/2023): CHD Moderate episode of recurren t major depressive disorder (CMS/HCC) 09/15/2015 03/22/2025 Encounters Date Type Department Care Team Description 03/25/2025 8:40 AM EST Office Visit [facility] [address] [place] [phone] Gonzalez Woodard MD Acute cough (Primary Dx); Non-recurrent acute suppurative otitis media of left ear without spontaneous rupture of tympanic membrane 03/25/2025 Travel 03/16/2025 Patient Outreach [address] [id number] Kathrine Mota DO Care Coordination (C3/[facility] [place]- Last Follow up call-graduated) 03/02/2025 Patient Outreach [address] [address] Kathrine Mota DO Care Coordination ([facility]- Follow up- Graduated) 02/16/2025 Patient Outreach [address] [address] Kathrine oMta DO Care Coordination ([facility]- Follow up call) from Last 3 Months Immunizations Immunization Administration [...] Sign Reading Time Taken Comments Blood Pressure 101/68 03/25/2025 8:51 AM EST Pulse 88 03/25/2025 8:51 AM EST Temperature 36.3 C (97.3 F) 03/25/2025 8:51 AM EST Respiratory Rate 19 03/25/2025 8:51 AM EST Oxygen Saturation 97% 03/25/2025 8:51 AM EST Inhaled Oxygen Concentration - - Weight 59.6 kg (131 lb 6.4 oz) 03/25/2025 8:51 A M EST Height 165.1 cm (5' 5 ) 03/25/2025 8:51 AM EST Body Mass Index 21.87 03/25/2025 8:51 AM EST Plan of Treatment Health Maintenance Due Date Last Done Comments Family Planning (PISQ) 10/05/2003 HPV Vaccines (2 - 3-dose series) 06/28/2006 05/31/2006 COVID-19 Vaccine ( season) 2025 02/22/2021, 02/01/2021 Influenza Vaccine (#1) 2025 , 02/12/2023, 05/20/2021, Additional history exists HPV/Cotest 04/12/2025 04/12/2022, 04/15, 03/27/2019 Depression Monitoring 05/29/2025 11/26/2024, 025 Alcohol/Substance Use Screening 08/01/2025 08/01/2024 SDOH Screening 11/06/2025 11/06/2024 Disability Screening 12/25/2025 12/25/2024 Tobacco Screening 03/25/2026 03/25/2025 Cervical Cancer Screening 12/20/2026 Pap Smear 12/20/2026 12/21/2023, 03/16, 05/12/2020 DTaP/Tdap/Td Vaccines (14 - Td or Tdap) 06/19/2033 06/19/2023, 10/21/2021, 02/01/2021, Additional history exists Zoster Vaccines (1 of 2) 2038 RSV Patients and Patients Aged 60 years or older (1 - 1-dose 75+ series) 10/05/2063 Hepatitis B Vaccines Completed 08/12/2002, 04/28/1999, 01/13/1998 HIB Vaccines Completed 03/20/2013, 07/24/1990 IPV Vaccines Completed 03/20/2013, 05/1993, 01/02/1991, [...] this topic Meningococcal Vaccine Aged Out No leana ling eligible based on patient's age to [...] Name Priority Date/Time Associated Diagnosis Comments POCT RAPID COVID ANTIGEN Routine 03/25/2025 9:09 AM EST Acute cough POCT INFLUENZA A (ID NOW RAPID MOLECULAR) Routine 03/25/2025 9:09 AM EST Acute cough POCT INFLUENZA B (ID NOW RAPID MOLECULAR) Routine 03/25/2025 9:09 AM EST Acute cough POCT RAPID STREP A Routine 03/25/2025 9: 09 AM EST Acute cough HEPATITIS C AB W/REFL TO HCV RNA, QN, PCR Routine 12/30/2024 1:27 PM EDT Hypokalemia HIV 1/2 ANTIGEN/ANTIBODY, FOURTH GENERATION W/RFL Routine 12/30/2024 1:27 PM EDT Hypokalemia PAP SMEAR Routine 12/21/2023 12:00 AM EDT THINPREP IMAGING PAP AND HPV MRNA E6/E7 WITH REFLEX TO HPV 16,18/45 Routine 04/12/2022 9:20 AM EST from Last 3 Months or Most Recently Relevant to Health Maintenance Results * Influenza B (ID NOW Rapid Molecular) (03/25/2025 9:09 AM EST) Influenza B Negative Negative, Indeterminate [facility] Swab 03/25/2025 9:09 AM EST us Gonzalez Woodard MD POINT OF CARE TEST ENTER/EDIT OR DERABLES Final Result Performing Organization Address [facility]/ZIP Co de Phone Number [facility] [address] [place] [phone] * Influenza A (ID NOW Rapid Molecular) (03/25/2025 9:09 AM EST) Influenza A Negative Negative, Indeterminate [facility] Swab 03/25/2025 9:09 AM EST us Gonzalez Woodard MD POINT OF CARE TEST ENTER/EDIT OR DERABLES Final Result Performing Organization Address [facility]/ZIP Co de Phone Number [facility] [address] [place] [phone] * POCT Rapid COVID Ag (03/25/2025 9:09 AM EST) [facility] Rapid COVID Ag Negative Swab 03/25/2025 9:09 AM EST us Gonzalez Woodard MD POINT OF CARE TEST ENTER/EDIT OR DERABLES Final Result * POCT rapid strep A manually resulted (03/25/2025 9:09 AM EST) [facility] Rapid Strep A Screen Negative Negative, None Detected [facility] Swab 03/25/2025 9:09 AM EST us Gonzalez Woodard MD POINT OF CARE TEST ENTER/EDIT OR DERABLES Final Result Performing Organization Address [facility] Co de Phone Number [facility] [address] [place] [phone] * Hepatitis C Antibody with Reflex to HCV, RNA, Quantitative, Real-Time PCR (12/30/2024 1:27 PM EDT) [facility] Hepatitis C Antibody Nonreactive Nonreactive [facility] Comment:Antibodies to HCV no t detected; does not exclude early acuteHCV infection. Blood Venous blood specimen / Unknown 12/30/2024 1:27 PM EDT 12/30/2024 4:17 PM EDT Kathrine Mota DO LAB BLOOD ORDERABLES Final R esult Performing Organization Address City/[facility]/ZIP Co de Phone Number [facility] [address] [place] [phone] * HIV-1/2 Antigen and Antibodies, Fourth Generation, with Reflexes (12/30/2024 1:27 PM EDT) [facility] HIV AB/AG Nonreactive Nonreactive [facility] Comment:HIV-1 p24 Ag and/or HIV-1/HIV-2 Ab not detected.A test result that is nonreactive does not exclude thepossibility of exposure to or infection with HIV-1 and/orHIV-2. Nonreactive results in this assay for individualswith prior exposure to HIV-1 and/or HIV-2 may be due toantigen and antibody levels that are below the limit ofdetection of this assay.The [employer] HIV Ag/Ab Combo assay result andsupplemental assay results should be interpreted inconjunction with the patient's clinical presentation,history and other laboratory results. If the results areinconsistent with clinical evidence, additional testing issuggested to confirm the result. Blood Venous blood specimen / Unknown 12/30/2024 1:27 PM EDT 12/30/2024 4:17 PM EDT Kathrine Mota DO LAB BLOOD ORDERABLES Final R esult [facility] [address] [place] [phone] * Pap Smear (12/21/2023 12:00 AM EDT) Swab Historical Provider MD LAB CYTOLOGY ORDERABLES F inal Result Performing Organization Address City/[facility]/ZIP Co de Phone Number [facility] [address] [place] [phone] * Thinprep TIS PAP And HPV mRNA E6/E7 With Reflex To HPV 16,18/45 (04/12/2022 9:20 AM EST) Clinical Information: None given [facility] LMP: NONE GIVEN [facility] Prev. PAP: NONE GIVEN [facility] Prev. BX: NONE GIVEN [facility] SOURCE: None given [facility] Statement Of Adequacy: [facility] Comment: Satisfactory for evaluation. Endocervical/transformation zone component present. Age and/or menstrual status not provided Interpretation/ Result: Negative for intraepithelial lesion or malignancy. [facility] Comment: This Pap test has been evaluated with computer assisted technology. [facility] [employer] [facility]: [facility] Comment: SL, CT(ASCP) CT screening location: [address] [address] Review Cytote[employer]olog[employer]: [employer] Comment: WAC, CT(ASCP) CT screening location: [address] [address] (Always Message) [employer] [facility] Comment: EXPLANATORY NOTE: The Pap is a [...] HPV nRNA E6/E7 Not Detected Not Detected [facility] Comment: Methodology: Rv Body Mechanic-Mediated Amplification This assay detects E6/E7 viral messenger RNA (mRNA) from 14 high-risk HPV types (16,18,31,33,35,39,45,51,52,56,58,59,66,68). Cervical sources are required for HPV testing. If a vaginal source from a patient who has had a total hysterectomy with removal of cervix was submitted, please contact the testing laboratory for alternative testing options. For additional information, please refer to http://education.Exam18/faq/UEA794j0 (This link if provided for information/ educational purposes only.) 04/12/2022 9:20 AM EST 04/13/2022 8:41 AM EST Marni GRIGGS LAB PATHOLOGY ORDERABLES Final Result [employer] [address] [place] [address], [place] [phone] [employer] [facility] [address], [facility] [place] [phone] from Last 3 Months or Most Recently Relevant to Health Maintenance Insurance [facility] C3 Care Teams Fruit Trimmer Relationship Specialty Start Date End Date Kathrine Mota DO [address] [place] [address] [phone] PCP - General Family Medicine 05/14/18
--- NOTE | 2025-05-06 10:02 | MHC.OFFVIS ---
Vital Signs 05/06/25 10:03 Height 5 ft 5 in Weight 130 lb BMI 21.6 BP 90/50 L Blood Pressure Location Lt brachial Position Sitting Pulse 97 Intake Visit Reasons: constipation and diarrhea Intake Note: Patient new consult for constipation and diarrhea. Patient cc: abdominal pain with bloating, GERD, between diarrhea and constipation with some bloody stool, weight loose with poor appetite, dizziness with fatigue. Consumer Loan Officer Required: No Accompanied by: Self / Same As Patient Allergies azithromycin Allergy (Unknown, Verified 05/06/25 10:02) anaphylaxis penicillin V Allergy (Unknown, Verified 05/06/25 10:02) hives, rash, angioedema Penicillins (PCN) Allergy (Unknown, Verified 05/06/25 10:02) ANAPHYLAXIS Medication List - Last Reconciled 05/06/25 by Virgen Cheung CNP cetirizine (Zyrtec) 10 mg PO DAILY fluoxetine 40 mg PO DAILY levonorgestrel (Kyleena) intrauterine HPI HPI constipation and diarrhea: Details: Patient is a 34-year-old female with PMH of anxiety, depression. Referred by PCP for further evaluation of alternating stool pattern. She reports a years-long history of alternating diarrhea and constipation, which has worsened significantly since the of her last child a year ago. Constipation is the predominant symptom, and she frequently strains to defecate. Loose stools occur rarely, typically a week before her period. At times, she has to manually stimulate herself to have a bowel movement. She experiences associated mid-upper abdominal pain and a stabbing rectal pain, which is exacerbated by attempts to defecate. The patient also reports hematochezia, noted both in the toilet and when wiping, which has occurred more recently over the past year. She has also experienced nausea, a bad taste in her mouth, significant fatigue, and constant bloating. She reports belching and sometimes regurgitates food and liquid with a burning sensation, but denies vomiting or dysphagia. There has been a significant unintentional weight loss of 70 pounds over the past year, from 200 pounds to her current weight of 130 pounds, associated with a decreased appetite. Past trials of increased fiber, Metamucil, Miralax, stool softeners, and probiotics have not provided relief; she notes that vegetables worsen her gas and bloating. Her past medical history is notable for having six children, a cholecystectomy in July, appendectomy, and tubal surgery. She has a Kyleena IUD, takes fluoxetine. Patient denies: fever/chills, vomiting, dysphasia. Social hx: -ETOH use 1x/month -denies recreational drug use -non-smoker - family hx as below -denies personal hx of CA -denies significant cardiopulmonary history -tolerated anesthesia in the past without difficulty. [facility] Medical History (Updated 05/06/25 @ 11:56 by Virgen Cheung CNP) Blood in stool Acid reflux Abdominal bloating Constipation Unexplained weight loss Chronic constipation Hx of ovarian cyst Surgical History History of removal of ovarian cyst Hx of appendectomy Hx of tonsillectomy Family History Maternal Grandmother Colon cancer Social History Alcohol intake: never Gender identity: Female Female Reproductive History Menstrual Age of Menarche: 9 Review of Systems Const Reports as per HPI ENT Reports as per HPI Card Reports as per HPI Resp Reports as per HPI GI Reports as per HPI Reports as per HPI Physical Exam Vital Signs: BMI result Body Mass Index 21.6 Const General: healthy appearing, no acute distress and well developed Nutritional Appearance: average body habitus Orientation/consciousness: patient oriented x3 HEENT Head: Yes normal to inspection, Yes normocephalic and Yes atraumatic Face and sinus: Yes normal facial exam Eyes General: appearance normal, both eyes and all related structures Neck Neck: Yes normal visual inspection Resp Effort & Inspection: normal respiratory effort, able to speak in complete sentences, no tracheal deviation and symmetric chest movement Cardio Jugular venous distension: no JVD GI Inspection: Yes normal to inspection, No distended and Yes striae Palpation (GI): Soft to palpation, not firm, nontender and No hepatosplenomegaly present Auscultation: normal bowel sounds Rectal Exam - Female: visual inspection normal, normal sphincter tone, No External hemorrhoid(s) present, No Internal hemorrhoid(s) present, No Rectal prolapse, No fecal impaction, No Lesions present (GI), No Anal fissure(s) present, No hemorrhoids, No Fistula present (GI), No Laceration(s) present (GI), No Excoriation present (GI), No mass and No tenderness Neuro General: patient oriented x3 Gait exam (Neuro): Normal gait present Psych Appearance: grossly normal Mental Status: mental status grossly normal Speech and movement: Normal speech and movement present Affect: normal affect Attitude: cooperative Thought process: Normal thought process present Thought content: Normal thought content present Insight: Good insight present (Psych) Judgement: Good judgement present (Psych) Assessment & Plan Assessment & Plan (1) Constipation: Code(s): K59.00 - Constipation, unspecified Category: Medical Qualifiers: Constipation type: unspecified constipation type Qualified Code(s): K59.00 - Constipation, unspecified Plan: The patient's constipation is the predominant symptom and is thought to be related to a functional VS motility issue. - To manage symptoms while awaiting further workup, the patient was advised to take Senna Plus, two tablets at bedtime, and titrate based on stool consistency. - The patient was provided a handout on a low-FODMAP diet to help manage gas and bloating and was counseled on avoiding prolonged straining on the toilet. (2) Unexplained weight loss: Code(s): R63.4 - Abnormal weight loss Category: Medical Plan: The patient's significant and unexplained weight loss is a concerning symptom requiring further investigation, though initial lab workup has been reassuring. - A chest x-ray will be ordered to rule out a pulmonary cause for the weight loss. - An upper endoscopy and colonoscopy are planned to evaluate for gastrointestinal causes, including malignancy and malabsorption. We will review prep at follow up. - Labs to rule out celiac disease have been ordered. (3) Acid reflux: Code(s): K21.9 - Gastro-esophageal reflux disease without esophagitis Category: Medical Qualifiers: Esophagitis presence: esophagitis presence not specified Qualified Code(s): K21.9 - Gastro-esophageal reflux disease without esophagitis Plan: The patient's upper GI symptoms of nausea, heartburn, and regurgitation are concerning for peptic ulcer disease or poorly controlled reflux. - To evaluate for H. pylori, a urea breath test will be performed in office today after labs/CXR. - Blood work as above - An upper endoscopy will be performed to further investigate the upper GI symptoms. (4) Blood in stool: Code(s): K92.1 - Melena Category: Medical Plan: Given the combination of rectal bleeding, unexplained weight loss, and a family history of a maternal grandmother with colon cancer diagnosed during her 40s, a comprehensive evaluation is warranted. - A stool kit will be provided to test for blood. - An order will be placed for a colonoscopy to directly visualize the colon. Plan Follow-up in 4 weeks or sooner as needed Time: I spent a total of 45 minutes on the date of encounter which includes: Preparing to see the patient (reviewed previous documentation, test results and medical history) Performing a medically appropriate exam and/or evaluation Ordering medications, tests, and procedures Documenting clinical information in the health record Orders: Orders XR chest 2V Today R63.4 - Abnormal weight loss Transglutaminase IgA Today R14.0 - Abdominal distension (gaseous), R63.4 - Abnormal weight loss AMB Stool Occult Bld x3 gFOBT Today Z12.12 - Encounter for screening for malignant neoplasm of rectum H Pylori Breath Test Today K59.00 - Constipation, unspecified, R14.0 - Abdominal distension (gaseous) Immunoglobulin A Today R14.0 - Abdominal distension (gaseous), R63.4 - Abnormal weight loss Referrals GI Procedure Notification R11.0 - Nausea, R63.4 - Abnormal weight loss, Z80.0 - Family history of malignant neoplasm of digestive organs Coding Level of Care Code New Pt New Pt Level 4 (77550) Patient Type New Diagnoses Constipation, unspecified constipation type K59.00 Constipation type: unspecified constipation type Unexplained weight loss R63.4 Gastroesophageal reflux disease, unspecified whether esophagitis present K21.9 Esophagitis presence: esophagitis presence not specified Blood in stool K92.1
[2025-05-06 10:03] VITALS: BP 90/50; PULSE 97; BMI 21.6
== END 2025-05-06 12:54 | disposition home or self-care (01) ==
LOC: HO.HGI 09:51
PROVIDERS: PCP Family Medicine; Visit Provider Nurse Practitioner Family
DX: K59.00 Constipation, unspecified (principal); R63.4 Abnormal weight loss; K21.9 Gastro-esophageal reflux disease without esophagitis; K92.1 Melena
CPT/HCPCS: 99204

== ENCOUNTER → 2025-05-06 11:15 | Outpatient (BNV) | payer MEDICAID, SELFPAY | PROVIDERS: PCP Family Medicine; Visit Provider Radiology Body Imaging | DX: R63.4 Abnormal weight loss (principal) | CPT/HCPCS: 71046 ==